=== PATIENT | male | born 1945 | race Caucasian/White ===

== ENCOUNTER 2017-01-29 11:25 | Inpatient (IN) ==
[2017-01-29] MEDS ORDERED: NS 1,000 ML IV ONE (11:52)
[2017-01-29 13:23] LABS: MANUAL DIFF NEEDED? NO
[2017-01-29 13:37] LABS: BASO% 0.4 % (0.0-0.8); EOS# 0.04 X1000 (0.0-0.7); EOS% 0.2 % (0.0-10.0); HEMATOCRIT 35.1 % (42.0-52.0); HEMOGLOBIN 11.9 g/dL (14.0-18.0); IMM GRAN# 0.22 X1000 (0.0-0.04); IMM GRAN% 1.3 % (0.0-0.5); LYMPH# 1.44 X1000 (1.2-3.4); LYMPH% 8.5 % (20.5-51.1); MCH 34.7 PG (27-31); MCHC 33.9 g/dL (33-37); MCV 102.3 FL (81-99); MONO# 0.89 X1000 (0.11-0.59); MONO% 5.3 % (1.7-9.3); MPV 11.6 FL (7.4-10.4); NEUT% 84.3 % (42.2-75.2); PLT 92 X1000 (130-400); RBC 3.43 XMIL (4.7-6.1)
[2017-01-29 14:03] LABS: CALCIUM 8.2 mg/dL (8.8-10.2); POTASSIUM 3.4 mmol/L (3.5-5.1); TOTAL BILIRUBIN 19.98 mg/dL (0.20-1.00); TOTAL PROTEIN 6.1 g/dL (6.3-8.3)
--- NOTE | 2017-01-29 14:19 | PROVIDER DOCUMENTATION ---
This chart was entered by Gretchen Lee Scribe, acting as scribe for Pedro Pablo Philippe MD. HPI-General Adult - General Chief Complaint: Abnormal Lab[s] Stated Complaint: ABNORMAL LABS Time Seen by Provider: 01/29/17 11:35 Source: patient Allergies/Adverse Reactions: Patient Allergies Allergy/AdvReac Type Severity Reaction Status Date / Time No Known Allergies Allergy Verified 03/06/15 13:37 Home Medications: Home Medication List Medication Instructions Recorded Confirmed Last Taken Type LISINOpril [Prinivil] 40 mg PO DAILY 10/14/14 03/06/15 01/14/17 History Metoprolol Succinate [Toprol Xl] 50 mg PO DAILY 10/14/14 03/06/15 01/14/17 History - History of Present Illness -Gen Adult Nature of Presenting Problems: Pt is 71 y/o M presents to the ED with abnormal labs. Pt states was sent by PCP for elevated bilirubin. Pt states bilirubin is 19. Pt states noticed the change in skin color 2 day ago. Location of Pain/Injury: reports: none Pain Radiation: reports: no radiation Quality of Pain: reports: none Severity: reports: mild Onset/Duration: reports: 2 days ago Timing: reports: still present, getting worse Context/Activities at Onset: reports: light activity Modifying Factors: improves with: nothing Associated Symptoms: reports: loss of appetite, nausea, other (generalized abdominal pain and jaundice) Similar Symptoms Previously?: Yes Recently seen or treated by another doctor?: No Review of Systems - Adult - REVIEW OF SYSTEMS - ADULT Constitutional: reports: no symptoms reported Eyes: reports: other (jaundice to sclerae). denies: discharge, blurred vision, double vision, redness Ears, Nose, Mouth & Throat: reports: no symptoms reported Cardiovascular: reports: no symptoms reported Respiratory: reports: no symptoms reported Gastrointestinal: reports: abdominal pain (generalized), nausea. denies: diarrhea, vomiting Genitourinary: reports: no symptoms reported Musculoskeletal: reports: no symptoms reported Integumentary: reports: no symptoms reported Neurological: reports: no symptoms reported Psychiatric: reports: no symptoms reported Endocrine: reports: change in skin pigment (jaundice). denies: increased hunger , increased thirst Hematologic/Lymphatic: reports: no symptoms reported Allergic/Immunologic: reports: no symptoms reported All Other Systems: Reviewed and Negative Past History - Adult - PAST MEDICAL HISTORY-ADULT Review of Records: reports: Nursing Assessment Review, Medications Reviewed, Social history reviewed & non-contributory. Major Childhood Illnesses: reports: denies history Cardiovascular: reports: CAD, HTN, [place] Respiratory: reports: denies history Gastrointestinal: reports: denies history Obstetrical/Gynecological: reports: denies history Genitourinary: reports: denies history Musculoskeletal: reports: denies history Neurological: reports: denies history Psychiatric: reports: denies history Endocrine/Immune: reports: denies history Other Conditions: reports: denies history - PRIOR SURGERIES/PROCEDURES Surgical/Procedure History: reports: cardiac stent - IMMUNIZATION STATUS Childhood Immunizations: See Nurse Assessment Flu Vaccine: See Nurse Assessment - FAMILY HISTORY Family History: reviewed, not pertinent - SOCIAL HISTORY Smoking: quit less than 1 year, cigarettes Substance Use: denies Living Situation: family Physical Exam-General - PHYSICAL EXAM-ADULT Initial Vital Signs Reviewed: Yes - CONSTITUTIONAL General Appearance: appears well, alert, no apparent distress - EYES Eyes: PERRL/EOMI, pink conjunctivae - HEAD, EARS, NOSE, MOUTH & THROAT HENMT: normocephalic/atraumatic, moist mucous membranes, other (jaundice to sclerae) - NECK Neck: non-tender, normal inspection - RESPIRATORY Respiratory: chest non-tender, lungs clear, normal breath sounds - CARDIOVASCULAR Cardiovascular: normal peripheral pulses, regular rate, rhythm - GASTROINTESTINAL (ABDOMEN) Abdominal Exam: normal bowel sounds, soft, tenderness (RUQ and epigastric) - LYMPHATIC Lymphatic: no adenopathy - MUSCULOSKELETAL Back Exam: normal inspection Extremity: normal range of motion, normal inspection - SKIN Integumentary: normal turgor, warm/dry, jaundice - NEUROLOGIC Neurologic: grossly normal - PSYCHIATRIC Psych/Mental Status: normal mood/affect, oriented x 3 Progress - PLAN OF CARE/RESULTS Progress/Plan/Lab Results: Vital Signs - 8 hr 01/29/17 11:28 Temperature 98.7 F Respiratory Rate 20 Blood Pressure 98/61 O2 Sat by Pulse Oximetry 100 Result Diagrams: 01/29/17 12:56 01/29/17 12:56 - CT/MRI 1 CT Study: Abdomen, Pelvis Impression: Abnormal (otherwise stable exam) CT Results: minimal fluid about the inferior right lobe of the liver - CONSULTS/PCP/HOSPITALIST Notification #1 *Consult/PCP/Hospitalist*: Hospitalist Dr CHADWICK Time Discussed: 16:39 Reason/Comments: Dr. Philippe consulted with Hospitalist about PT Consult Disposition: Admit Departure - Departure Date of Disposition Decision: 01/29/17 Time of Disposition Decision: 16:39 DIAGNOSIS: Hepatitis, Hyperbilirubinemia Disposition: ADMITTED INPATIENT 09 Certified Medical Emergency: Emergent Condition: Stable Referrals and Follow-Ups: Nito Denis MD [Primary Care Provider] - - Critical Care Note This patient required my direct & personal management of CC.: No This chart was documented by the indicated scribe, (Gretchen Lee Scribe) and accurately reflects the services I performed and decisions made by me, Pedro Pablo Philippe MD, as attested by the provider's signature.
--- NOTE | 2017-01-29 15:01 | Diag Imaging Result Doc PS360 ---
EXAM: ABDOMEN/PELVIS W/O CONTRAST HISTORY: painless jaundice TECHNIQUE: CT abdomen and pelvis without contrast COMPARISON: 01/14/2017 FINDINGS: Increased markings in the right lung base possibly due to fibrosis. There is severe fatty infiltration of the liver. No calcified gallstones. Normal spleen and adrenal glands. Normal noncontrasted pancreas. No renal stones. No hydronephrosis. Moderate atherosclerosis. No aortic aneurysm. There are several mildly prominent lymph nodes in the ernesto hepatis. No bowel obstruction. The urinary bladder is moderately distended and appears normal. 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 Trace fluid about the right lobe of the liver and paracolic gutter. No abscess. IMPRESSION: Minimal fluid about the inferior right lobe of the liver, otherwise stable exam. Electronically signed by Mau Pitts 01/29/2017 2:58 PM
[2017-01-29 16:15] LABS: URINE SOURCE CLEAN CATCH
[2017-01-29 16:18] LABS: BLOOD URINE SMALL (NEGATIVE); COLOR YELLOW; GLUCOSE URINE NEGATIVE (NEGATIVE); LEUKOCYTES URINE NEGATIVE (NEGATIVE); NITRITE URINE NEGATIVE (NEGATIVE); PROTEIN URINE 30 mg/dL (NEGATIVE); SP GRAVITY URINE 1.021; TURBIDITY URINE HAZY (CLEAR); UROBILINOGEN URINE 8 mg/dL (NORMAL)
[2017-01-29 16:21] LABS: UR EPITHELIAL CELLS <10 /HPF (<10); URINE BACTERIA NEGATIVE /HPF; URINE MICRO REVIEW NEEDED? YES; URINE RBC <10 /HPF (<10); URINE WBC TNTC /HPF (<10)
[2017-01-29 16:38] LABS: URINE CASTS GRANULAR PRESENT
[2017-01-29 16:42] LABS: BILIRUBIN URINE LARGE (NEGATIVE); URINE SMALL ROUND CELLS RENAL PRESENT
[2017-01-29 17:11] LABS: UR CREAT RANDOM 272.8 mg/dL (14-26)
[2017-01-29 18:21] LABS: INR 1.45; PROTIME 15.6 Seconds (9.2-11.7)
--- NOTE | 2017-01-29 19:07 | HISTORY AND PHYSICAL ---
PCP is Dr. Nito Denis. Utility Service Worker is Dr. Erasmo Valenzuela in [place], [place]. CHIEF COMPLAINT: Abnormal labs and weakness. HISTORY OF PRESENT ILLNESS: Mr. Ji is a 71-year-old male with a history of severe coronary disease status post SC and stenting in the past. [facility] [place]. He also has a history of alcohol dependence, around 1 pint a day since 2004. He was actually in the ER about 2 weeks ago for weakness. At that time, he was found to have an elevated bilirubin of 2.79 and had a CAT scan of the abdomen and pelvis which did not show anything acute. There was hepatic steatosis. Since that time, he has been having generalized weakness. He stopped drinking 2 days ago. He denies any abdominal pain, no nausea, vomiting or diarrhea. He does report dark omar colored urine but overall has no acute complaints. No fever, no chills, cough congestion. He had labs drawn for followup and got a phone call today telling him to go to the ER for abnormal labs. In the ER today he was noted to have a T bilirubin of 20 with transaminitis and elevated alkaline phosphatase. He also has acute kidney injury with hyponatremia and hypokalemia. His CBC shows a macrocytic anemia with leukocytosis. In the ER, he had a CT done and showed some minimal fluid in the right inferior lobe of the liver but otherwise nothing acute. On physical exam, the patient is quite jaundiced. He denies any Tylenol use, his last drink was 2 days ago. No recent foreign travel. No uncooked or novel foods. The patient is now going to be admitted for acute hepatitis and painless jaundice. PAST MEDICAL HISTORY: 1. CAD status post SC and stenting. 2. Hypertension. 3. Hyperlipidemia. 4. Alcohol dependence. PAST SURGICAL HISTORY: Coronary stenting, penile implant. SOCIAL HISTORY: Patient quit smoking some time ago. He has been drinking a pint a day since 2004. His last drink was 2 days ago. He denies illicit drug use. He is with 1 child. He has his girlfriend at the bedside. FAMILY HISTORY: Mother from [place], father from [place]. REVIEW OF SYSTEMS: Fourteen-point review of systems obtained and found to be negative with the exception of the HPI. ALLERGIES: None. HOME MEDICATIONS: Metoprolol 50 mg daily, Prinivil 40 mg daily. PHYSICAL EXAMINATION: VITAL SIGNS: Blood pressure is 107/73, heart rate 83, respiratory rate 20, O2 saturation 96% on room air. Temperature is 98.7 degrees. GENERAL: This is an obese, male, lying in hospital bed in no acute distress. Generally he is profoundly jaundiced. HEENT: Head atraumatic and normocephalic. Pupils are equal, round, reactive to light. Sclerae is jaundiced. Oral mucosa is moist. Trachea is midline. CHEST: Clear to auscultation bilaterally. CV: Regular rate and rhythm. S1, S2 is noted. No murmurs. GI: Soft, nondistended, nontender. Bowel sounds are positive. EXTREMITIES: 1+ edema bilaterally. DIAGNOSTIC DATA: Abdomen CT shows some trace amounts of fluid in the right inferior lobe of the liver. Otherwise negative. WBC 16.95, hemoglobin 11.9, hematocrit 35.1, MCV 102.3. Platelet count 92,000. Sodium 132, potassium 3.4, chloride 84, CO2 27, anion gap 21, BUN 27, creatinine 2.7, glucose 101, calcium 8.2. T bilirubin 19.98. AST 42, ALT 121, alkaline phosphatase 600. Protein 6.1, albumin 3.0, amylase is 16. UA shows large bilirubin and TNTC WBC. ASSESSMENT AND PLAN: 1. Painless jaundice: Certainly the concern would be for pancreatic malignancy given the negative CT scan however his CT scan was done without contrast. The patient is going to require a host of labs studies. We are going to check for acute hepatitis, autoimmune hepatitis, will check acetaminophen and salicylate levels, alcohol levels and draw blood cultures. Will check an abdomen ultrasound. We will also consult GI, he will likely need ERCP or MRCP to rule out pancreatic ductal obstruction. We will check a CMP every day. Continue IV fluids. 2. Acute kidney injury: Likely component of hepatorenal on top of DORIS inhibition. We are going to check comprehensive urine studies and renal ultrasound. Consult Nephrology and continue with IV fluids. 3. Leukocytosis: No fever and no nidus of infection at this time. He does have white cells in his urine but he is not febrile. We will check blood cultures and monitor. 4. Multiple electrolyte abnormalities: Patient is hyponatremia, hypokalemic, hypochloremia, and hypocalcemic. We will continue with IV fluids and check urine sodium and osmolarity. Clinically the patient is slightly hypervolemic so the hyponatremia could certainly be secondary to his liver but would not rule out hypovolemic as well. We will tease this out with urine studies. 5. Macrocytic anemia: Iron studies have been ordered. We are going to start a banana bag. 6. Alcohol dependence: Patient denies any withdrawal symptoms but we are going to put him on a banana bag daily and p.r.n. Ativan for withdrawal. 7. DVT prophylaxis will be provided with SCDs and TEDs given his liver issues. Further recommendations to follow. Dictated by LETICIA Potter for Luisito Briggs MD cc: LETICIA Potter MD David Francis, MD Dr. Hunter at [facility]
[2017-01-29 20:04] LABS: HDL 7 mg/dL (35-55); LDL 233 mg/dL; TRIGLYCERIDES 247 mg/dL (39-160); VLDL 49 mg/dL
[2017-01-29 20:18] LABS: FREE T4 1.29 ng/dL (0.93-1.70)
[2017-01-29 20:31] LABS: TOTAL IRON 126 ug/dL (53-167); UNBOUND IRON < 1 ug/dL (112-346)
--- NOTE | 2017-01-29 20:49 | Diag Imaging Result Doc PS360 ---
EXAM: US ABDOMEN-COMPLETE HISTORY: cyn, profound Bilirubinemia TECHNIQUE: FINDINGS: Compared to CT performed earlier. The pancreas is poorly seen. There is fatty infiltration of the liver. No hydronephrosis to the right kidney. No stones within the gallbladder. The common bile duct measures 4 mm. No left-sided hydronephrosis. Spleen measures 13.6 cm. The aorta and inferior vena cava are obscured. IMPRESSION: Fatty infiltration of the liver. Mild splenomegaly. Electronically signed by Mau Pitts 01/29/2017 8:47 PM
[2017-01-29] MEDS: M.V.I.-12 10 ML, FOLIC ACID 1 MG, MAGNESIUM SULFATE 1 GM, THIAMINE 100 MG in NS 1,000 ML IV SCH (22:06)
[2017-01-29] MEDS: PEPCID IV SCH (22:45)
[2017-01-29] MEDS: SODIUM CHLORIDE 0.9% INJ SCH (22:45)
[2017-01-29] MEDS: ATIVAN IV PRN (22:46)
[2017-01-30] MEDS: NS 1,000 ML IV SCH (06:06)
[2017-01-30 07:01] LABS: HEMATOCRIT 32.1 % (42.0-52.0); HEMOGLOBIN 10.7 g/dL (14.0-18.0); MCH 35.4 PG (27-31); MCHC 33.3 g/dL (33-37); MCV 106.3 FL (81-99); MPV 11.2 FL (7.4-10.4); RBC 3.02 XMIL (4.7-6.1)
[2017-01-30 07:19] LABS: ALBUMIN 2.5 g/dL (3.5-5.0); CALCIUM 7.3 mg/dL (8.8-10.2); POTASSIUM 3.3 mmol/L (3.5-5.1)
[2017-01-30 07:29] LABS: TOTAL BILIRUBIN 19.38 mg/dL (0.20-1.00)
[2017-01-30] MEDS: PEPCID IV SCH ×2 (10:19→20:46)
--- NOTE | 2017-01-30 13:57 | PROGRESS NOTE ---
DATE: 01/30/2017 A 71-year-old, abnormal labs and weakness. He is followed by Dr. Nito Mai, ict systems test engineer is Dr. Erasmo Valenzuela, [place]. 71-year-old with history of severe coronary artery disease status post [place], stenting in the past. He is followed a [facility] [place]. Had a history of alcohol dependence about 1 pint a day since 2004. He was actually in the ER about 2 weeks ago for weakness. At this time he is found to have elevated bilirubin 2.79 and a CAT scan of the abdomen and pelvis which did not show anything acute. He had hepatic steatosis. Since that time he has been having generalized weakness. He stopped drinking 2 days ago. Denies any abdominal pain. No nausea, vomiting or diarrhea. He does report dark colored urine but overall no acute complaints. No fever or chills. In the ER CT was done which showed minimal fluid in the right inferior lobe of the liver. INCOMPLETE REPORT -- DICTATION ENDS HERE. cc: Weston Wright MD
--- NOTE | 2017-01-30 14:22 | PROGRESS NOTE ---
DATE: 01/30/2017 SUBJECTIVE: This is a 71-year-old white male with a history of severe coronary artery disease status post myocardial infarction and stenting in the past. He is [facility] at the [facility] [place]. He has a history of alcohol dependence, about 1 pint a day since 2004. Went to the emergency room about 2 weeks ago with weakness and found to have elevated bilirubin at 2.9. Had a CT scan and abdominal and pelvis which did not show anything acute. There was hepatic steatosis. He is having some generalized weakness. He stop drinking about 2 days ago and was admitted with painless jaundice, elevated bilirubin. He had a negative CT, although poor quality. GI has been consulted. History of acute kidney injury and history of leukocytosis, multiple electrolyte abnormalities. Today he feels much better. Sitting up on the side of the bed. He is still getting a liquid diet. OBJECTIVE: Vital signs: Temperature is 98.2 degrees, pulse 80, respirations 18, blood pressure 104/60. Neck: CVP less than 6 cm. Lungs: Clear in all lung walker. Cardiovascular: Regular rhythm and rate without murmur or S3. Abdomen: Soft. Skin: Warm and dry. White count has come down to 11,540, hematocrit 32, platelet count 82,000. Sodium 134, potassium 3.3, chloride 93, BUN 20, creatinine 1.7, which has come down from 2.7. His total bilirubin was 19.9, direct bilirubin was greater than 10. GGT was 3,368. AST was 242 and ALT was 600; they have come down a little bit. ASSESSMENT AND PLAN: 1. Presented with hyperbilirubinemia. Appears to have alcoholic steatosis hepatitis. Dr. Escobar to evaluate. 2. Acute kidney injury. Possible component of hepatorenal and his DORIS inhibitor. 3. Leukocytosis. No sign of bacterial infection at this point. Certainly no sign of peritonitis. 4. Electrolyte abnormalities. Sodium has been supplemented. Potassium has been supplemented. 5. Microcytic anemia. Consistent with alcohol. 6. Alcohol dependence and going through withdrawal. They started him on some supplement, banana bag with thiamine, folate, multivitamin. Seems to be making improvement. cc: Weston Wright MD
--- NOTE | 2017-01-30 18:43 | CONSULTATION ---
DATE OF CONSULTATION: 01/30/2017 HISTORY AND REASON FOR CONSULTATION: Evaluation of this patient with jaundice. HISTORY OF PRESENT ILLNESS: This is a 71-year-old gentleman who was admitted yesterday to this hospital because he has started becoming yellow in color. He said that about 2 weeks ago he started seeing some yellowish discoloration of his skin, so he called his ex- girlfriend and she came in to help him. For a few days, he was jaundiced and he was eating okay with no problem; however, according to him, it cleared and then it came back again and a couple of days ago it became so bad that he even said that he stopped drinking. He was drinking quite heavily, about 1 pint a day of hard liquor since 2004. The patient saw me by the end of May 2016, referred by Dr. Denis because of difficulty in swallowing. At that time, I have found a Nuzhat esophagitis. He did not have any varices. He also had erosive gastritis. Biopsy was negative for Helicobacter pylori infection. The patient's ProTime at that time was 12.1 , INR was 1.14. On 06/15 his bilirubin was 1.58, direct was 0.60. The total protein was 7.3, albumin was 4.5, globulin 2.8. The alkaline phosphatase was 169, SGOT was 116, SGPT was 74. With Diflucan he improved and he came for followup about 2 weeks later. At that time, I explained his problems and told him that he actually needs to stop drinking really big-time. He was on Prevacid 30 mg daily for his gastroesophageal reflux and gastritis. Currently, the patient has been drinking heavily. He said that he stopped for a while. He will not pick it up again and his girlfriend, Taylor, was with him at the time he promised me. PAST MEDICAL HISTORY: In 1998, he had a heart attack. At that time, he stopped smoking completely. He has chronic ischemic heart disease. He had another heart attack in 2004. He also has hypertension. He had a history of jaundice in the past. Perhaps it might have been another episode of alcoholic hepatitis. He has no history of cirrhosis of the liver. He also has hypercholesterolemia. PAST SURGICAL HISTORY: He had 3 stents placed in 1998 and one stent placed in his heart in 2004. He is not taking any Plavix. SOCIAL HISTORY: He is retired. His passed on. He has drank heavily since 2004, that is what he says; however, I believe that he probably was drinking before that, too. According to the report in the office, he drinks 3 or 4 hard drinks per day. FAMILY HISTORY: There is history of hypertension and heart disease in the family. He did not give any history of any GI cancer or any kind of alcoholism in the family. ALLERGIES: He is allergic to Singulair. He was given Singulair for some coughing and he gained about 24 pounds and after stopping it, he has lost all his weight. MEDICATIONS: Aspirin 81 mg daily, lisinopril 40 mg daily, Prevacid 30 mg daily , Toprol-XL 50 mg daily. PHYSICAL EXAMINATION: General: The patient is alert, oriented x3. He does not seem to be any acute distress. Vital Signs: Temperature is 98.2 degrees, pulse rate is 82 per minute, respiratory rate is 18, blood pressure is 104/62. HEENT: He is deeply jaundiced. Skin is otherwise warm and dry. Mucous membranes are moist. Neck supple. There is no thyromegaly. Cardiac: Both heart sounds are heard. Rhythm is regular. No murmur. Lungs: Clear to percussion and auscultation. Abdomen: Soft, protuberant. There is no ascites by examination. I could not feel the edge of the liver or spleen. Extremities: Slight edema of both lower extremities present. DIAGNOSTICS: CT scan showed increased marking in the right lung base due to possibly fibrosis. There is severe fatty infiltration of the liver. No gallston but there is no bowel obstruction. There ises. No hydronephrosis. There are several mildly prominent lymph nodes in the ernesto hepatis no evidence of any pancreatitis. Ultrasound also was done yesterday following the CT scan. It also showed fatty infiltration of the liver. Mild splenomegaly was shown. The common bile duct was 4 mm. Spleen only measured 13.6, not really enlarged. LABORATORY DATA: At the time of entry, his WBC count was elevated at 16.95. The RBC was 3.43, hemoglobin 11.9, hematocrit 35.1, MCV is 102.3, MCH is 34.7. The WBC count came down to 11.54 and MCV went up to 106.38 today. His platelet count is low at 92,000 and it came down to 82 today. The sodium was 132, potassium was 3.4, chloride 84, BUN was 27, creatinine 2.7. His glucose was 101, calcium 8.2. Today the sodium went up to 134, potassium to 3.3, chloride 93, BUN is 20, creatinine 1.7. The calcium is 7.3. Ferritin was 4448, total bilirubin 19.98. GGT 36, AST 242, ALT 121. The alkaline phosphatase 600. Total protein 6.1. Albumin 3. Globulin is 3.1. The triglycerides 247, cholesterol is 289. Today the bilirubin remains high at 19.38. AST dropped to 178, ALT to 93 and alkaline phosphatase 530. The total protein is 5, albumin has dropped to 2.5. ProTime was 15.6, INR was 1.45. Lipase was 28, amylase was 16. IMPRESSION: 1. Acute alcoholic hepatitis with a fatty metamorphosis of the liver. 2. There is no evidence of hepatic encephalopathy 3. He is tremulous already with symptoms of withdrawal. 4. Chronic ischemic heart disease. RECOMMENDATIONS: 1. I had a long discussion with him about his condition of alcoholic hepatitis. The prognosis could go either way. If the patient stops drinking, the prognosis is better ; however, some patients can deteriorate to significant alcoholic hepatitis. I also told him that only treatment possible is stopping drinking. If he does not stop his drinking, his prognosis would be extremely poor. He said that he had definitely stopped drinking. No more drinking anymore. I said that he should keep that promise. 2. There was discussion about ERCP. The patient and his attendant asked me whether an ERCP is needed. 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 He probably had this ongoing problem gradually coming along and at this point it has become quite severe. I cannot say for sure that he has no cirrhosis of the liver. There might be some underlying cirrhosis already. However, there is no dilatation of the common bile duct, there is no ERCP indicated and it could even be harmful if he developed a complication of acute pancreatitis secondary to an ERCP. So ERCP should be avoided. I described this to the patient and his attendant, Taylor, who is his girlfriend. However, the patient is to be observed for either worsening or improvement of alcoholic hepatitis. The trend seems to be improvement because his liver functions are improving. The bilirubin is going to lag behind. The last one usually to improve is the bilirubin because of the intrahepatic cholestasis. If the progress is not satisfactory with poor appetite, then a small dose of steroids might help; however, he is able to eat and I will start him on a gastrointestinal soft diet. He should be observed for 1 more day to see the trend of his liver enzymes and bilirubin to decide about discharging him home. If there is no significant improvement in the liver enzymes, and the bilirubin is going up, then we need to keep him in the hospital because then the prognosis would be poor. If he tolerates the gastrointestinal soft diet and the general condition improves, he could be sent home. I discussed the case with Dr. Wright. I will follow the patient. cc: MD Nito Kerr MD MTDD
--- NOTE | 2017-01-30 18:52 | CONSULTATION ---
DATE OF CONSULTATION: 01/30/2017 REASON FOR ADMISSION: Weakness, abnormal labs, jaundice, acute kidney injury, leukocytosis, hyponatremia, hypokalemia, macrocytic anemia, alcohol dependence. REASON FOR CONSULTATION: Acute kidney injury, assist with medical management. CONSULTING PHYSICIAN: Dr. Wright. HISTORY OF PRESENT ILLNESS: This is a 71-year-old gentleman with a history of alcohol dependence for many years. He has a history of hypertension and a history of coronary artery disease. He was recently in the emergency room secondary to weakness and at that time was found to have a mildly elevated bilirubin at 2.9 and fatty liver noted on CT scan. Since then he has continued to have worsening weakness, jaundice that has been progressive, and urine that has become dark brown in color. He had labs drawn for some follow up from this visit and was told to go to the emergency room. In the emergency room he was found to have a creatinine of 2.7 , WBC of 16.9, sodium 132, potassium 3.4, CO2 27, anion gap is 21, calcium 8.2, bilirubin of 19.9, AST 42, ALT 121, amylase 16, and too numerous to count WBCs. He had an abdominal ultrasound completed that showed fatty infiltration of the liver, no hydronephrosis. He had mild splenomegaly at that time. He is admitted to the hospital for further workup and treatment. He has had IV fluids going over night and this morning his creatinine is down to 1.7. He has had repletion for his electrolyte imbalance and those numbers have improved. His WBC remains at 11.5. On exam today he is still quite jaundiced and actually has some confusion or early withdrawal going on. His significant other is at the bedside and I am able to obtain a history from both of them. He states that over the last couple of weeks he has had worsening fatigue. He denies any nausea or vomiting. He states that his urine output, the color has gotten darker and financial agent and then became brown and has not changed. He states that he had noticed the jaundice over the last several days. PAST MEDICAL HISTORY: As above. PAST SURGICAL HISTORY: He has had a coronary artery stenting. He has had a penile implant. ALLERGIES: None. HOME MEDICATIONS: Are listed as metoprolol, lisinopril, and aspirin. FAMILY HISTORY: CO in father from an abdominal aortic aneurysm. SOCIAL HISTORY: He drinks about a pint a day. His last drink was 2 days prior to admission. He quit smoking some years ago. His significant other is at the bedside. REVIEW OF SYSTEMS: Pertinent positives noted above. PHYSICAL EXAMINATION: Vital Signs: Temperature 98.2 degrees, pulse 82, respiratory rate 18, blood pressure 104/62. Intake 900 mL. Output 100 mL. General: This is an elderly gentleman, chronically ill-appearing, quite jaundiced, sitting up in bed. He is awake and alert. There is some confusion during discussion noted. HEENT: Normocephalic, atraumatic. His conjunctivae are pale. He has icteric sclerae. His oral mucosa is moist. Neck: Supple. Trachea midline. No JVD. Cardiovascular: Regular rate and rhythm. No murmur or gallop appreciated. Pulmonary: He has equal excursion. He is clear bilaterally. Abdomen: Distended, soft. Positive bowel sounds. : Not inspected. He is voiding. Extremities: He has trace to 1+ pretibial edema. No clubbing or cyanosis. Integumentary: He is quite jaundiced. Skin is warm and dry otherwise. Neurologic: Grossly nonfocal aside for some mild confusion. CURRENT LABS: WBC of 11.5, hemoglobin 10.7, sodium 134, potassium 3.3, chloride 93, CO2 28, BUN 20, creatinine 1.7. He has a T bilirubin of 19.3, AST of 178, ALT of 93, alkaline phosphatase of 500. He has an albumin of 2.5. Iron is 126. Saturation and TIBC unreported. His unbound iron saturation is less than 1. His ferritin is greater than 4,000. Urine with 1+ protein, positive bilirubin, too numerous to count white blood cells, granular cast. He has a FENa of 0.19. IMAGING: As above. ASSESSMENT AND PLAN: 1. Acute kidney injury. The patient had a significantly low FENa, indicating prerenal state. This is included with him being on lisinopril. That medication has been held. He has been given IV fluids overnight and he has had modest improvement with his renal function. He has no indication for dialysis at this time. We will continue the current treatment and recheck labs in the morning. 2. Jaundice. ETOH steatitic hepatitis. Followed by primary and GI. The patient has a long history of alcoholism. 3. Electrolytes, improving. 4. Blood pressure. Currently controlled. 5. Fluid volume. He is not overloaded on exam. Dictated by LETICIA Delgado for Ryan Ureña MD cc: Ryan Ureña MD [id number]
[2017-01-30] MEDS: SODIUM CHLORIDE 0.9% INJ SCH (20:46)
[2017-01-30] MEDS: M.V.I.-12 10 ML, FOLIC ACID 1 MG, MAGNESIUM SULFATE 1 GM, THIAMINE 100 MG in NS 1,000 ML IV SCH (20:47)
[2017-01-30] MEDS: ATIVAN IV PRN (20:47)
[2017-01-31] MEDS: ATIVAN IV PRN ×2 (03:02→23:20)
[2017-01-31 04:21] LABS: HEMATOCRIT 31.3 % (42.0-52.0); HEMOGLOBIN 10.6 g/dL (14.0-18.0); MCH 35.1 PG (27-31); MCHC 33.9 g/dL (33-37); MCV 103.6 FL (81-99); MPV 10.8 FL (7.4-10.4); RBC 3.02 XMIL (4.7-6.1)
[2017-01-31] MEDS: NS 1,000 ML IV SCH ×2 (04:39→17:18)
[2017-01-31 06:24] LABS: ALBUMIN 2.4 g/dL (3.5-5.0); CALCIUM 6.7 mg/dL (8.8-10.2); POTASSIUM 2.7 mmol/L (3.5-5.1); TOTAL BILIRUBIN 21.54 mg/dL (0.20-1.00)
[2017-01-31] MEDS: PEPCID IV SCH ×2 (09:30→23:02)
[2017-01-31] MEDS: SODIUM CHLORIDE 0.9% INJ SCH (09:30)
--- NOTE | 2017-01-31 10:49 | PROGRESS NOTE ---
DATE: 01/31/2017 SUBJECTIVE: Patient is sitting up in bed. He is awake and alert. He is in no acute distress. OBJECTIVE: Vital signs: Temperature 97.4 degrees, pulse 114, respiratory rate 23, blood pressure 105/52. Intake 1.4 L. Output, he has been incontinent. He is voiding. General: This is an elderly gentleman sitting up in bed. He is awake, alert, in no acute distress. HEENT: Normocephalic, atraumatic. His conjunctivae are pale. His sclerae are icteric. Oral mucosa moist. Neck: Supple. Trachea midline. No JVD. Cardiovascular: Regular rate and rhythm. No murmur or gallop is appreciated. Pulmonary: He is clear bilaterally with equal excursion and no increased work of breathing. Remains on O2 supplementation via nasal cannula. Abdomen: Distended, but soft with positive bowel sounds and no tenderness. : Not inspected. He is voiding. He is incontinent. Extremities: He has trace pretibial edema. No clubbing or cyanosis. He is moving all extremities. Integumentary: He remains significantly jaundiced. Skin warm and dry otherwise. Neurologic: Grossly nonfocal. LAB DATA: Sodium 133, potassium 2.7, chloride 93, CO2 26, BUN 16, creatinine 1.3 (1.7, 2.7), total bilirubin 21.5, direct bilirubin greater than 10, AST 158, ALT 83, alkaline phosphatase 527, magnesium 1.5, albumin 2.4, and calcium 6.7. ASSESSMENT AND PLAN: 1. Acute kidney injury secondary to intravascular volume depletion. Exacerbated with ACEI use. He has been fluid resuscitated. His ACEI continues to be held. His renal function has improved steadily. He has no indication for any intervention. We will sign off. rg 2. Jaundice, ethanol steatosis hepatitis. Followed by primary and GI. 3. Electrolytes, acid-base balance. These are acceptable. He has MVI bag noted , repletion per the primary. 4. Blood pressure control. 5. Fluid volume. He is not overloaded. Seen, data reviewed, discussed with Polo Hernandez on 01/31/17. I agree with the above assessment and plan of care. rg Dictated by LETICIA Delgado for Ryan Ureña MD cc: Ryan Ureña MD [facility]
[2017-01-31 11:01] LABS: HEPATITIS PROFILE ACUTE SEE COMMENTS
[2017-01-31] MEDS: LACTULOSE PO SCH ×2 (17:18→20:53)
--- NOTE | 2017-01-31 17:45 | PROGRESS NOTE ---
DATE: 01/31/2017 SUBJECTIVE: This patient is a 71-year-old gentleman who is admitted with acute alcoholic hepatitis. His condition remains stable. He was started on a GI soft diet and he said this appetite remains poor and he did not have a bowel movement, although he ate some. He is quite comfortable. Does not complain of any pain. His urine is still high colored. The patient denies any significant GI symptoms. OBJECTIVE: Vital signs: The temperature is 98.2 degrees, pulse rate is high at 124, respiratory rate is 19, blood pressure is 116/73. Skin: He is deeply jaundiced. Skin is warm and dry. HEENT: Mucous membranes are moist. Neck: Supple. There is no thyromegaly. Cardiology: Both heart sounds are heard. Rhythm is regular. No murmur. Lungs: Clear to percussion and auscultation. Abdomen: Soft, protuberant. No masses felt. I could not feel liver or spleen. No ascites. He had a slight pedal edema yesterday but that has gone now. LAB DATA: His sodium is 133, potassium is 2.7 which is quite low, chloride is 93, BUN came down to 16, creatinine 1.3. The calcium is down to 6.7, magnesium is 1.5. The total bilirubin slightly went up to 21.54. The direct is more than 10. SGOT is down to 158. His GPT is down to 83. Alkaline phosphatase is slightly down to 527. Total protein and albumin almost remains the same. IMPRESSION AND PLAN: Acute alcoholic hepatitis. Condition remains stable. We could ambulate the patient with assistance and also start giving him lactulose 30 mL b.i.d. to get bowel movements. Will cut down the dose if needed. I explained the patient's condition to him. Since his appetite did not go down too much and he is tolerating a diet, his prognosis might be better but we have to wait for another couple of days to see the trend of his LFTs, which includes bilirubin. I discussed the case with Dr. Wright. cc: MD Weston Rodriguez MD MTDD
[2017-01-31] MEDS: POTASSIUM CHLORIDE 20 MEQ/SWI 20 MEQ/100 ML IVPB IV SCH ×2 (18:33→20:56)
[2017-01-31] MEDS: M.V.I.-12 10 ML, FOLIC ACID 1 MG, MAGNESIUM SULFATE 1 GM, THIAMINE 100 MG in NS 1,000 ML IV SCH (23:00)
--- NOTE | 2017-02-01 03:19 | PROGRESS NOTE ---
DATE: 01/31/2017 SUBJECTIVE: Mr. Ji says he is feeling a little better. He has got a little more of an appetite, but still has not eaten much. Denies any abdominal pain today, and much less nausea. OBJECTIVE: Vital Signs: His temperature is 98.2 degrees, pulse 105, respirations 18, blood pressure 108/66. HEENT: Pupils are equal, round. Lungs: Clear in all lung walker. Cardiovascular: Regular rhythm and rate, without murmur or S3. Abdomen: Soft. Skin: Warm and dry. Genitourinary: Urine output about 2 L. LABORATORY STUDIES: White count 13,260, hematocrit 31, platelet count 92,000. Chemistry: Sodium 133, potassium 2.7, chloride 93, BUN 16, creatinine 1.3. Calcium 6.7, magnesium 1.5. Total bilirubin still at 21, direct bilirubin greater than 10. Transaminases are coming down. AST 178 to 158, ALT 93, then 83, alkaline phosphatase 535 and 527. ASSESSMENT AND PLAN: 1. Acute kidney injury secondary to intravascular volume depletion, exacerbated by DORIS inhibitor. This renal function continues to improve. Hold his DORIS inhibitor. 2. Jaundice, hepatitis steatosis, alcoholic hepatitis, with elevated bilirubin. Continue supportive care. Transaminases seem to be coming down. 3. Will supplement some potassium. 4. Encourage p.o. intake. cc: Weston Wright MD
[2017-02-01] MEDS: NS 1,000 ML IV SCH ×2 (05:09→11:53)
[2017-02-01 07:32] LABS: HEMATOCRIT 31.6 % (42.0-52.0); HEMOGLOBIN 10.6 g/dL (14.0-18.0); MCH 35.7 PG (27-31); MCHC 33.5 g/dL (33-37); MCV 106.4 FL (81-99); MPV 11.2 FL (7.4-10.4); RBC 2.97 XMIL (4.7-6.1)
[2017-02-01 07:40] LABS: CALCIUM 6.6 mg/dL (8.8-10.2)
[2017-02-01 07:44] LABS: AGAP 15; ALBUMIN 2.5 g/dL (3.5-5.0); ALKALINE PHOSPHATASE 511 U/L (32-122); BUN 10 mg/dL (8-22); CHLORIDE 99 mmol/L (98-107); COSMO 273; GOT 161 U/L (10-34); GPT 81 U/L (10-44); POTASSIUM 3.3 mmol/L (3.5-5.1); SODIUM 137 mmol/L (136-145); TCO2 23 mmol/L (25-35); TOTAL BILIRUBIN 24.12 mg/dL (0.20-1.00); TOTAL PROTEIN 4.8 g/dL (6.3-8.3)
[2017-02-01] MEDS: SODIUM CHLORIDE 0.9% INJ SCH (09:34)
[2017-02-01] MEDS: PEPCID IV SCH ×2 (09:34→20:18)
[2017-02-01] MEDS: LACTULOSE PO SCH (09:34)
[2017-02-01] MEDS ORDERED: MAGNESIUM SULFATE 2 GM/S.W.I. 2 GM/50 ML IVPB IV ONE (10:05)
[2017-02-01] MEDS ORDERED: POTASSIUM CHLORIDE 20% LIQUID PO ONE (10:06)
[2017-02-01] MEDS: POTASSIUM CHLORIDE 20 MEQ/SWI 20 MEQ/100 ML IVPB IV SCH ×2 (11:39→15:44)
[2017-02-01 14:30] LABS: CHLORIDE 96 mmol/L (98-107); POTASSIUM 3.9 mmol/L (3.5-5.1); SODIUM 133 mmol/L (136-145); TCO2 24 mmol/L (25-35)
[2017-02-01 14:31] LABS: AGAP 13; BUN 10 mg/dL (8-22); COSMO 268
--- NOTE | 2017-02-01 15:34 | EKG Report ---
Test Performed on : 02/01/2017 1:53:51 PM Test Reason : CP Blood Pressure : / mmHG Vent. Rate : 094 BPM Atrial Rate : 094 BPM P-R Int : 162 ms QRS Dur : 142 ms QT Int : 424 ms P-R-T Axes : 039 -38 010 degrees QTc Int : 530 ms Sinus rhythm. with premature atrial complexes. Left axis deviation Right bundle branch block Anteroseptal infarct (cited on or before 06-MAR-2015) Abnormal ECG When compared with ECG of 14-JAN-2017 12:20, premature atrial complexes. are now present Confirmed by Ramirze He MD ([id number]) on 02/02/2017 8:34:39 AM
--- NOTE | 2017-02-01 16:49 | Diag Imaging Result Doc PS360 ---
EXAM: MRI ABDOMEN W/WO CONTRAST INDICATION: Patient has elevated CA19-9 to evaluate Pancreas TECHNIQUE: COMPARISON: CT dated 01/29/2017. No prior MRI abdomen is available for comparison. FINDINGS: There is marked hepatic signal dropout on the out of phase images as compared to the in phase images compatible with hepatic steatosis. No discrete hepatic mass is appreciated. The pancreas is grossly unremarkable. No pancreatic mass is identified. There is no biliary dilatation. No common bile duct filling defect or stricture is identified. There are several borderline to mildly prominent epigastric and celiac lymph nodes that can also be seen on the CT. The largest of these lymph nodes measures approximately 1.8 x 1.1 cm axially. Similar to the recent prior CT, there is trace fluid tracking around the lower tip of the liver. There is a tiny left renal cyst. The remainder of the visualized solid viscera of the abdomen are essentially unremarkable. IMPRESSION: 1.Hepatic steatosis. 2.Borderline to mild epigastric and celiac lymphadenopathy. 3.No discrete pancreatic mass is appreciated. 4.Trace fluid at the lower tip of the liver similar to the recent CT. Electronically signed by Sanjay Tilley 02/01/2017 4:47 PM
--- NOTE | 2017-02-01 17:38 | PROGRESS NOTE ---
DATE: 02/01/2017 SUBJECTIVE: He states he is feeling better. He is getting a little bit to eat. His appetite is starting to come back and his strength is improving. He remains afebrile. OBJECTIVE: Vital Signs: Temperature 97.7 degrees, pulse 98, respirations 18, blood pressure 120/69. HEENT: He is still icteric and jaundiced. Lungs: Clear in all lung walker. Cardiovascular: Regular rhythm and rate without murmur or S3. Abdomen: His abdomen is tight, is nontender. Extremities: With trace edema to the lower extremities. DIAGNOSTIC DATA: Reviewed blood work from yesterday, and electrolytes. Noted his calcium is still 6.6, with an albumin of 2.5. He did have a nonsustained run of ventricular tachycardia. Potassium was little low, magnesium marginal, so I will supplement those. ASSESSMENT AND PLAN: 1. Acute kidney injury. Appears to be doing better. Suspect mainly is volume depletion. We had stopped this and held his DORIS inhibitor. 2. Jaundice, hepatitis, steatosis, alcoholic hepatitis, elevated bilirubin. He is eating a little better. That is encouraging. 3. Nonsustained ventricular ectopy, ventricular tachycardia. Supplement potassium and magnesium, obtain an EKG. We have emphasized every day importance of he cannot drink any more alcohol and to try to get a little p.o. intake. cc: Weston Wright MD
[2017-02-01] MEDS: M.V.I.-12 10 ML, FOLIC ACID 1 MG, MAGNESIUM SULFATE 1 GM, THIAMINE 100 MG in NS 1,000 ML IV SCH (20:18)
[2017-02-01] MEDS: ATIVAN IV PRN (20:18)
--- NOTE | 2017-02-02 03:39 | PROGRESS NOTE ---
DATE: 02/01/2017 This patient is admitted with severe jaundice. He most likely has alcoholic hepatitis. He is feeling a little better. His appetite has improved. He still passing a lot of high colored urine and he is deeply jaundiced. PHYSICAL EXAMINATION: General: The patient is alert, oriented x3. Vital Signs: The temperature is 97.7 degrees, pulse rate is 98 per minute, respiratory rate is 18, blood pressure is 120/69. Skin: Shows deep jaundice. HEENT: Mucous membranes are moist. Neck: Supple. There is no thyromegaly. Cardiac: Both heart sounds are heard. Rhythm is regular. No murmur. Lungs: Revealed a few crackles in both bases. Abdomen: Protuberant as before. I could not feel liver or spleen. Bowel sounds are normally heard. There does not seem to be any significant ascites clinically. Extremities: Free of any edema. LAB DATA: WBC count is down to 12.48, hemoglobin 10.6, hematocrit 31.3, MCV is 106.4. The platelet count is 103,000; it is slightly Up. Sodium 133, potassium 3.3, chloride 99, CO2 is 23. BUN is 10, creatinine 1. The calcium is 6.6, magnesium is 1.6. Bilirubin is slightly up at 24.12. AST is 151, ALT is 81, alkaline phosphatase 511. Total protein 4.8. Albumin is 2.5. Alpha-fetoprotein is 4.4. CEA is 2.1. The CA 19-9 is elevated at 459. IMPRESSION: 1. Acute alcoholic hepatitis. Symptomatically slightly better. Bilirubin can lag behind improvement in liver enzymes. 2. CA 19-9 is elevated. RECOMMENDATION: Since CA 19-9 is elevated which can be elevated in the presence of obstructive jaundice although the CT scan of the abdomen and pelvis done on 01/29 did not reveal any tumor of the head of the pancreas we will do an MRCP to look at the pancreatic duct as well as the bile duct. That will be ordered for tomorrow. cc: Dr. Wright
[2017-02-02] MEDS: NS 1,000 ML IV SCH ×2 (06:57→20:24)
[2017-02-02] MEDS: ATIVAN IV PRN ×3 (06:57→20:45)
[2017-02-02 08:53] LABS: BASO% 1.1 % (0.0-0.8); EOS# 0.05 X1000 (0.0-0.7); EOS% 0.4 % (0.0-10.0); HEMATOCRIT 30.7 % (42.0-52.0); HEMOGLOBIN 10.5 g/dL (14.0-18.0); IMM GRAN# 0.51 X1000 (0.0-0.04); IMM GRAN% 4.3 % (0.0-0.5); LYMPH# 1.29 X1000 (1.2-3.4); LYMPH% 10.9 % (20.5-51.1); MANUAL DIFF NEEDED? YES; MCH 35.5 PG (27-31); MCHC 34.2 g/dL (33-37); MCV 103.7 FL (81-99); MONO# 1.29 X1000 (0.11-0.59); MONO% 10.9 % (1.7-9.3); NEUT% 72.4 % (42.2-75.2); PLT 129 X1000 (130-400); RBC 2.96 XMIL (4.7-6.1)
[2017-02-02] MEDS: LACTULOSE PO SCH (09:14)
[2017-02-02] MEDS: PEPCID IV SCH ×2 (09:14→20:26)
[2017-02-02 09:22] LABS: CALCIUM 6.2 mg/dL (8.8-10.2)
[2017-02-02 09:23] LABS: AGAP 15; ALBUMIN 2.4 g/dL (3.5-5.0); ALKALINE PHOSPHATASE 464 U/L (32-122); BUN 7 mg/dL (8-22); CHLORIDE 99 mmol/L (98-107); COSMO 270; GOT 147 U/L (10-34); GPT 77 U/L (10-44); POTASSIUM 3.2 mmol/L (3.5-5.1); SODIUM 136 mmol/L (136-145); TCO2 22 mmol/L (25-35); TOTAL PROTEIN 4.6 g/dL (6.3-8.3)
[2017-02-02 09:24] LABS: TOTAL BILIRUBIN 23.25 mg/dL (0.20-1.00)
[2017-02-02 09:38] LABS: BANDS 4 % (0-1); LYMPHS 16 % (21-51); MONO 6 % (1-9)
[2017-02-02] MEDS ORDERED: MAGNESIUM SULFATE 2 GM/S.W.I. 2 GM/50 ML IVPB IV ONE (16:31)
--- NOTE | 2017-02-02 17:04 | PROGRESS NOTE ---
DATE: 02/02/2017 SUBJECTIVE: This patient is admitted with acute alcoholic hepatitis. His condition is remaining stable. His appetite has not improved, although he is able to eat some. He said that his appetite is remaining the same. He denies any pain. He is still deeply jaundiced. His bowels are moving. PHYSICAL EXAMINATION: The patient is alert and oriented x3. Seems to be slightly drowsy. He is on Ativan for possible withdrawal syndrome. He does not seem to be having any signs of withdrawal syndrome. Slight shake present but no evidence of any hepatic encephalopathy He was sleeping until yesterday; however, last night he could not sleep well because he was moved to a double room. Vital Signs: The pulse is slightly up at 95 per minute, respiratory rate is 17, blood pressure is 114/69. The skin shows deep jaundice. Mucous membranes are moist. Neck is supple. There is no thyromegaly. Cardiac: Both heart sounds are heard. Rhythm is regular. I could not hear any murmur. Lungs reveal a few crackles in the bases. Abdomen: Protuberant. I could not feel any ascites. No masses felt. Bowel sounds are heard. Extremities: No significant edema. LABORATORY DATA: The WBC count is down to 11.85, hemoglobin is 10.5, hematocrit 30.7. The platelet count is 129,000. The MCV is 103.7. The sodium is 136, potassium 3.2 , chloride is 99. CO2 is 22. BUN is 7. Creatinine 0.8. Calcium is 6.2, magnesium is 120. Bilirubin is 23.25. The AST is 147, ALT 77, and alkaline phosphatase 464. Total protein is 4.6, albumin 2.4. IMPRESSION: Acute alcoholic hepatitis. There seems to be very slight improvement. His appetite still remains not so good. Magnetic resonance cholangiopancreatography done yesterday was negative for any pancreatic cancer. Small lymph nodes in the ernesto hepatis probably unremarkable. There is no evidence of strap attic biliary obstruction. He has intrahepatic cholestasis. I calculated his Maddrey DF Score is 41. Since there is no evidence of any infection at this point. He may benefit from steroid therapy for a short period of time. That will at least make him feel symptomatically better. I will, therefore, start him on 15 mg p.o. b.i.d. That would be 30 mg per day dose. Prednisolone is probably superior to prednisone because it does not need to be metabolized by the liver into the active form. We will watch him closely for a few days. cc: MD Weston Rodriguez MD MTDD
[2017-02-02] MEDS: POTASSIUM CHLORIDE 20 MEQ/SWI 20 MEQ/100 ML IVPB IV SCH (18:56)
[2017-02-02] MEDS: ORAPRED LIQUID PO SCH (20:25)
[2017-02-02] MEDS: SODIUM CHLORIDE 0.9% INJ SCH (20:26)
[2017-02-02] MEDS ORDERED: KLOR-CON PO SCH (21:00)
--- NOTE | 2017-02-02 23:13 | PROGRESS NOTE ---
DATE: 02/02/2017 SUBJECTIVE: Mr. Ji feels very weak today. He is trying do a little walking. He is eating a little better. He has had some tachycardia, which appears to be consistent with a sinus tachycardia. Yesterday, he did have some runs of ventricular tachycardia nonsustained. I supplemented his potassium and magnesium. He is afebrile today and has remained afebrile through this hospitalization. OBJECTIVE: Vital signs: Pulse 117, respirations 19, blood pressure 131/72. CVP less than 6 cm. Lungs: Clear in all lung walker. Cardiovascular: Regular rhythm and rate without murmur or S3. : Urine output is over 4 L. LABORATORY: From this morning, white count 11,850, hematocrit 30, platelet count 129,000. Chemistry: Sodium 136, potassium 3.2, chloride 99, bicarb 22, BUN 7, creatinine 0.8. His calcium was 6.2 with an albumin 2.4. Alkaline phosphatase has come down to 464. ALT from 81 to 77, AST from 161 to 147. Total bilirubin is 23. ASSESSMENT/PLAN: Alcohol hepatitis. His liver enzymes slowly seem to be getting better. Encourage p.o. intake. We will supplement potassium and magnesium. cc: Weston Wright MD
[2017-02-03] MEDS: ATIVAN IV PRN ×2 (00:33→22:19)
[2017-02-03] MEDS: POTASSIUM CHLORIDE 20 MEQ/SWI 20 MEQ/100 ML IVPB IV SCH (00:34)
[2017-02-03] MEDS: NS 1,000 ML IV SCH ×2 (02:35→22:19)
[2017-02-03] MEDS: M.V.I.-12 10 ML, FOLIC ACID 1 MG, MAGNESIUM SULFATE 1 GM, THIAMINE 100 MG in NS 1,000 ML IV SCH (03:27)
[2017-02-03 07:05] LABS: AGAP 11; ALBUMIN 2.1 g/dL (3.5-5.0); ALKALINE PHOSPHATASE 429 U/L (32-122); BUN 8 mg/dL (8-22); CHLORIDE 105 mmol/L (98-107); COSMO 273; GOT 142 U/L (10-34); GPT 72 U/L (10-44); POTASSIUM 3.9 mmol/L (3.5-5.1); SODIUM 137 mmol/L (136-145); TCO2 21 mmol/L (25-35); TOTAL PROTEIN 4.3 g/dL (6.3-8.3)
[2017-02-03 07:21] LABS: CALCIUM 6.6 mg/dL (8.8-10.2)
[2017-02-03] MEDS: PEPCID IV SCH ×2 (10:37→20:58)
[2017-02-03] MEDS: ORAPRED LIQUID PO SCH ×2 (10:37→22:00)
[2017-02-03] MEDS: LACTULOSE PO SCH (10:37)
--- NOTE | 2017-02-03 14:49 | PROGRESS NOTE ---
DATE: 02/03/2017 SUBJECTIVE: This patient was admitted with acute alcoholic hepatitis. He was started on prednisolone 15 mg b.i.d. yesterday. His appetite has already picked up. He said that he is starving and he is eating really good. For breakfast he consumed all of his meal. His bowel movements are, according to him, kind of normal with brownish, not so liquid stool. Generally he is feeling better. OBJECTIVE: Vital signs: Temperature is 97 degrees, pulse is 116, respiratory rate is 20, blood pressure is 111/69. Skin: He is still deeply jaundiced. HEENT: Mucous membranes are moist. Lungs: Examination of the lungs reveals that he has a few basal crackles. Abdomen: Protuberant as before with good bowel sounds. I could not see any masses or feel any masses. Extremities: No edema present. LAB DATA: Today's sodium is 137, potassium 3.9, chloride 105, CO2 is 21, BUN 8, creatinine 0.8, glucose is 119. Calcium still remains low at 6.6. The bilirubin is 24.60. The AST is down to 142. ALT is down to 72. Alkaline phosphatase is down to 429. The total protein is down to 4.3. Albumin is 2.1. IMPRESSION: Acute alcoholic hepatitis, symptomatic improvement. RECOMMENDATIONS: I believe his IVs can be stopped and proton pump inhibitor can be given by mouth. He could ambulate in the hallway. I will let Dr. Wrigth those decisions and put the orders. The prednisolone should be continued. His liver functions are improving. Bilirubin will lag behind. cc: MD Nito Kerr MD
--- NOTE | 2017-02-03 17:22 | PROGRESS NOTE ---
DATE: 02/03/2017 SUBJECTIVE: Mr. Ji is a feeling better today. He is still pretty weak but he is improving, you can tell he is improving. He walked the mendez several times today. He is eating a little better. OBJECTIVE: Vital Signs: Temperature 97.0 degrees, pulse 116, respirations 20, blood pressure 111/69, CVP less than 6 cm. Lungs: Clear in all lung walker. Cardiovascular: Regular rhythm and rate without murmur or S3. Abdomen: Soft. Skin: Warm and dry. Genitourinary: Urine output 2400 mL. LAB: Reviewed from the : His chemistries this morning, sodium 137, potassium 3.9, chloride 105, bicarb 21, BUN 8, creatinine 0.8, osmolality 273, calcium 6.6, magnesium 2.0. I think I will check a phosphate level tomorrow. ASSESSMENT AND PLAN: Acute alcoholic hepatitis. Symptomatic improvement, and we stopped the proton pump inhibitor and he is being given it by mouth. Continue to ambulate, continue to encourage p.o. intake. I will check calcium phosphate. We have been supplementing potassium and magnesium. cc: Weston Wright MD
[2017-02-03] MEDS: CALTRATE 600 PO SCH (20:58)
[2017-02-03] MEDS: SODIUM CHLORIDE 0.9% INJ SCH (20:58)
[2017-02-04] MEDS: M.V.I.-12 10 ML, FOLIC ACID 1 MG, MAGNESIUM SULFATE 1 GM, THIAMINE 100 MG in NS 1,000 ML IV SCH (03:02)
[2017-02-04 06:03] LABS: AGAP 12; ALBUMIN 2.2 g/dL (3.5-5.0); ALKALINE PHOSPHATASE 408 U/L (32-122); BUN 10 mg/dL (8-22); CHLORIDE 107 mmol/L (98-107); COSMO 280; GOT 126 U/L (10-34); GPT 72 U/L (10-44); MAGNESIUM 1.8 mg/dL (1.5-2.7); POTASSIUM 3.6 mmol/L (3.5-5.1); SODIUM 140 mmol/L (136-145); TCO2 21 mmol/L (25-35); TOTAL BILIRUBIN 24.35 mg/dL (0.20-1.00); TOTAL PROTEIN 4.2 g/dL (6.3-8.3)
[2017-02-04 06:05] LABS: CALCIUM 6.9 mg/dL (8.8-10.2)
[2017-02-04] MEDS: NS 1,000 ML IV SCH (06:37)
--- NOTE | 2017-02-04 07:19 | Diag Imaging Result Doc PS360 ---
HEAD W/O CONTRAST - 02/04/2017 INDICATION: FALL TECHNIQUE: A CT dose reduction protocol was used. COMPARISON: None FINDINGS: The ventricles and sulci are normal in size and contour. No intracranial mass or hemorrhage. The skull is intact. The sinuses mastoids and middle ears are clear. IMPRESSION: Negative exam. Electronically signed by Rafiq Bryant 02/04/2017 7:16 AM
[2017-02-04] MEDS: PEPCID IV SCH (08:37)
[2017-02-04] MEDS: ORAPRED LIQUID PO SCH ×2 (08:37→23:05)
[2017-02-04] MEDS: CALTRATE 600 PO SCH ×2 (08:37→23:05)
[2017-02-04] MEDS: LACTULOSE PO SCH (08:37)
--- NOTE | 2017-02-04 14:19 | PROGRESS NOTE ---
DATE: 02/04/2017 This patient is admitted with acute alcoholic hepatitis. His condition is gradually improving. Today he said that he feels that he is very sleepy and loopy. He wants to sleep all day. He said that he was given medication which made him sleepy. When I found out what medication was given, he was given 2 mg Ativan IV push at 11 p.m. The indication for that 1 is not clear to me. The patient's appetite is good. He said that he ate well this morning for breakfast. His bowels are moving and there is no significant any other symptoms. PHYSICAL EXAMINATION: General: The patient is alert, oriented x3. Vital Signs: The temperature is 97.7 degrees, pulse rate is 86 per minute, respiratory rate is 18, blood pressure is 108/68. He is deeply jaundiced. Skin: Warm and dry. Mucous membranes are moist. Lung Examination: Reveals some basilar crackles. Cardiac: Negative. Abdomen: Slightly less distended today. Soft. Bowel sounds are heard. Extremities: Free of any edema. LAB DATA: Today's sodium is 140, potassium 3.6, chloride is 107, CO2 is 21, BUN is 10, creatinine is 0.9. The glucose is 120. Calcium is 6.9, phosphorus is low at 1.2. Magnesium is 1.8. The bilirubin is 24.35 which remains the same. The AST is down to 126, ALT is down to 72, alkaline phosphatase is down to 402. Total protein is 4.2, albumin is 2.2. IMPRESSION: Acute alcoholic hepatitis gradually improving. RECOMMENDATION: Continue his prednisolone 15 mg b.i.d. I will reduce the Ativan to 0.5 mg q.4 hours p.r.n. for withdrawal symptoms.
[2017-02-04] MEDS ORDERED: POTASSIUM PHOSPHATE 40 MEQ in NS 250 ML IV ONE (15:00)
--- NOTE | 2017-02-04 15:36 | PROGRESS NOTE ---
DATE: 02/04/2017 SUBJECTIVE: He is feeling better, but he was given some Ativan this morning and said it has kept him messed up for most of the morning. Dr. Escobar had ordered that as needed. He is getting calcium carbonate and getting Pepcid IV q.12 hours. I may stop that and go to p.o. proton pump inhibitor. He is on prednisone 50 mg p.o. b.i.d. OBJECTIVE: General: Today in the bed, he feels comfortable, getting stronger. Vital signs: Temperature 97.4 degrees, pulse 89, respirations 20, blood pressure 133/84. CVP less than 6 cm. Lungs: Clear in all lung walker. Cardiovascular: Regular rhythm and rate without murmur or S3. Abdomen: Soft. Skin: Warm and dry. : Urine output 2000 mL. LABORATORIES: Reviewed. Hematocrit stable at 30. Chemistries from today: Sodium 140, potassium 3.6. Chloride 107. Bicarb 21, BUN 10, creatinine 0.9, calcium was 6.9, phosphorus was 1.2. So I am going to give him some K-Phos. Magnesium was 1.8. Continue p.o. magnesium. Bilirubin is at 24. Transaminases are still declining. Albumin was 2.2. IMAGING: He had a CT of his head this morning. It was a negative examination. I think he had some confusion. ASSESSMENT AND PLAN: We are going to give a p.o. proton pump inhibitor. Stop his IV Pepcid. He was started on some prednisone yesterday. Appetite has picked up. His strength is improving. I am going to supplement some potassium, phosphorus and have noted his hypokalemia. cc: Weston Wright MD
[2017-02-04] MEDS ORDERED: TUMS PO PRN (16:44)
[2017-02-04] MEDS: ATIVAN PO PRN (23:05)
[2017-02-05] MEDS: M.V.I.-12 10 ML, FOLIC ACID 1 MG, MAGNESIUM SULFATE 1 GM, THIAMINE 100 MG in NS 1,000 ML IV SCH (04:44)
[2017-02-05] MEDS: ATIVAN PO PRN ×3 (04:54→22:38)
[2017-02-05] MEDS: NS 1,000 ML IV SCH ×4 (06:44→19:45)
[2017-02-05 06:55] LABS: AGAP 13; ALBUMIN 2.3 g/dL (3.5-5.0); ALKALINE PHOSPHATASE 435 U/L (32-122); BUN 13 mg/dL (8-22); CALCIUM 7.4 mg/dL (8.8-10.2); CHLORIDE 110 mmol/L (98-107); COSMO 288; GOT 132 U/L (10-34); GPT 83 U/L (10-44); POTASSIUM 3.5 mmol/L (3.5-5.1); SODIUM 144 mmol/L (136-145); TCO2 21 mmol/L (25-35); TOTAL BILIRUBIN 26.25 mg/dL (0.20-1.00); TOTAL PROTEIN 4.4 g/dL (6.3-8.3)
[2017-02-05] MEDS: ORAPRED LIQUID PO SCH ×2 (08:17→22:35)
[2017-02-05] MEDS: NEXIUM PO SCH (08:17)
[2017-02-05] MEDS: LACTULOSE PO SCH (08:17)
[2017-02-05] MEDS: CALTRATE 600 PO SCH ×2 (08:17→22:35)
[2017-02-05] MEDS ORDERED: ALBUMIN 25% IV ONE (11:42)
--- NOTE | 2017-02-05 13:57 | PROGRESS NOTE ---
DATE: 02/05/2017 SUBJECTIVE: Mr. Ji had a better day. He states that his stools are loose, having frequent bowel movements. He is eating a little better. He ate a little better yesterday. Today, he did not eat much breakfast. His son was at the bedside. OBJECTIVE: Temperature 97.9 degrees, pulse 100, respirations 19, blood pressure 142/94. Lungs are clear in all lung walker. Cardiovascular: Regular rhythm and rate without murmur or S3. Abdomen soft. Skin is warm and dry. Sodium 144, potassium 3.5, chloride 110. BUN 13, creatinine .9. Calcium has come up to 7.4, bilirubin is still 26. AST 132, ALT 83, alkaline phos 435. Albumin 2.3. Magnesium was 1.8. ASSESSMENT AND PLAN: 1. Alcoholic hepatitis. Protein calorie malnutrition. Enzymes are slowly improving. Bilirubin will be the last improved. Encouraged p.o. intake. We did start him on steroids. 2. Alcohol withdrawal. I think he is through the withdrawal effects, so there is an element of or depression. 3. His stools are loose. So, I will see if I can back down on anything that would contribute to that. He is on prednisone 50 mg b.i.d. We will stop his lactulose. Getting calcium carbonate. He still gets his multivitamin every day. cc: Weston Wright MD
--- NOTE | 2017-02-05 14:13 | PROGRESS NOTE ---
DATE: 02/05/2017 SUBJECTIVE: This patient was admitted with acute alcohol hepatitis. His condition is improving, but today I noticed that he has little more ankle swelling than before. He still seems to be drowsy. His Ativan is cut down to 1 mg q.4 hour p.r.n. EXAMINATION: Vital Signs: The temperature is 97.9 degrees, pulse is 100 per minute, respiratory rate is 18, blood pressure is 140/94. General: He is deeply jaundiced. Skin: Is warm and dry. HEENT: Mucous membranes are moist. Neck: Supple. Cardiovascular: Both heart sounds are heard. Rhythm is regular. I could not hear any murmur. Lungs: Shows more crackles in both bases. Abdomen: Protuberant. There is some anterior abdominal wall edema present, no masses felt. Not more distended than yesterday. Extremities: 2+ edema today. LABORATORY DATA: Sodium 144, potassium 3.5, chloride is 110, CO2 is 21, BUN is 13, creatinine is 0.9, glucose is 115. Calcium is 7.4. Bilirubin is 26.25. AST is 132, slightly up from yesterday. ALT is 183, slightly up from yesterday. Alkaline phosphatase is also slightly up at 435. The albumin is 2.3. IMPRESSION: 1. Severe hypoalbuminemia causing anasarca. 2. Acute alcoholic hepatitis, improving. RECOMMENDATION: 1. Cut down on IV fluids. Dr. Wright has already done that. 2. I will giving him salt-free albumin 25 g IV piggyback daily for 3 days. We will do ProTime for tomorrow morning along with blood test. cc: MD Weston Rodriguez MD MTDD
[2017-02-05] MEDS: ALBUMIN 25% IV SCH (15:07)
[2017-02-06] MEDS: M.V.I.-12 10 ML, FOLIC ACID 1 MG, MAGNESIUM SULFATE 1 GM, THIAMINE 100 MG in NS 1,000 ML IV SCH (03:38)
[2017-02-06] MEDS: ATIVAN PO PRN ×4 (03:48→22:07)
[2017-02-06 06:45] LABS: INR 1.32; PROTIME 14.1 Seconds (9.2-11.7)
[2017-02-06 06:50] LABS: HEMATOCRIT 31.9 % (42.0-52.0); HEMOGLOBIN 10.8 g/dL (14.0-18.0); MCHC 33.9 g/dL (33-37); MCV 106.3 FL (81-99); MPV 11.1 FL (7.4-10.4)
[2017-02-06] MEDS: ALBUMIN 25% IV SCH (08:43)
[2017-02-06] MEDS: NEXIUM PO SCH (08:43)
[2017-02-06] MEDS: CALTRATE 600 PO SCH ×2 (08:43→22:07)
[2017-02-06] MEDS: ORAPRED LIQUID PO SCH ×2 (08:43→22:07)
[2017-02-06] MEDS: KLOR-CON PO SCH (10:20)
[2017-02-06] MEDS: LASIX PO SCH (10:20)
[2017-02-06 11:16] LABS: AGAP 14; ALBUMIN 2.7 g/dL (3.5-5.0); ALKALINE PHOSPHATASE 391 U/L (32-122); BUN 13 mg/dL (8-22); CALCIUM 7.1 mg/dL (8.8-10.2); CHLORIDE 108 mmol/L (98-107); COSMO 285; GOT 134 U/L (10-34); GPT 91 U/L (10-44); POTASSIUM 3.6 mmol/L (3.5-5.1); SODIUM 143 mmol/L (136-145); TCO2 21 mmol/L (25-35)
[2017-02-06 11:31] LABS: DIRECT BILIRUBIN > 10.00 mg/dL (0.00-0.20)
--- NOTE | 2017-02-06 11:54 | PROGRESS NOTE ---
DATE: 02/06/2017 SUBJECTIVE: Mr. Ji is feeling better this morning. A little stronger. Eating a little better. OBJECTIVE: Vital signs: Temp 97.4 degrees, pulse 77, respirations 17, blood pressure 121/72. Lungs: Clear in all lung walker. Cardiovascular: Regular rhythm and rate without murmur or S3. Abdomen: Soft. Skin: Warm and dry. Intake and output: Urine output 1800 mL. LAB: White count 14,740, hematocrit 31, platelet count 161,000. Sodium 144, potassium 3.5, chloride 110, BUN 13, creatinine 0.9, calcium is 7.4. Will recheck his phosphorus I think tomorrow. Bilirubin stable at 26, AST 132, ALT 83, alkaline phosphatase 435. ASSESSMENT AND PLAN: 1. Severe hypobilirubinemia causing anasarca. We have cut down his fluids and I think Dr. Escobar is going to give him albumin 50 g IV piggyback daily for 3 days. 2. Acute alcoholic hepatitis, slowly improving. Encourage p.o. intake. Encourage physical therapy. Have supplemented his calcium, potassium, magnesium. Will continue to follow his electrolytes. cc: Weston Wright MD
[2017-02-06] MEDS: NS 1,000 ML IV SCH (13:51)
[2017-02-07] MEDS: ATIVAN PO PRN ×2 (03:28→15:03)
[2017-02-07] MEDS: M.V.I.-12 10 ML, FOLIC ACID 1 MG, MAGNESIUM SULFATE 1 GM, THIAMINE 100 MG in NS 1,000 ML IV SCH (03:28)
--- NOTE | 2017-02-07 03:55 | PROGRESS NOTE ---
DATE: 02/06/2017 SUBJECTIVE: This patient is admitted with acute alcoholic hepatitis. Today, he has slight improvement. He seems to be feeling more hungry and eating his breakfast. He is on prednisolone 15 mg b.i.d. The patient says that he is quite sleepy but he is not requiring too much the sedation at this point. He is not in acute distress. PHYSICAL EXAMINATION: Vital Signs: The temperature is 97.4 degrees, pulse rate is 77 per minute, respiratory rate is 17, blood pressure is 121/72. HEENT: He is deeply jaundiced as before. Skin is warm and dry. Mucous membranes are moist. Cardiac: Both heart sounds are heard. Rhythm is regular. I could not hear any murmur. Lungs: Reveal bibasilar crackles. Abdomen: Less tense. Some anterior abdominal wall edema present. Bowel sounds are heard. No masses felt. Extremities: Show still 1+ pitting edema. Is and Os: His total intake was 1943 mL. The total output was 650. Still, he is positive 1293 mL. He had 1 bowel movement today. LAB DATA: WBC count is 14.74, hemoglobin is 10.8, hematocrit 31.9, MCV is 106.3, the platelet count went up to 161,000. His prothrombin time dropped from 15.6-14.1, INR is 1.32. Other labs are not back. IMPRESSION: 1. Acute alcoholic hepatitis with improvement in prothrombin time and platelet count. 2. Still a lot of fluid in his body. RECOMMENDATION: I will start him on small dose of Lasix 40 mg p.o. and also give him 20 mEq of potassium daily. We will watch his electrolytes and LFTs for the next few days. I encouraged him to ambulate in the hallway. On the whole, there is improvement in his condition. Hopefully, in the next few days, he will improve and he could be sent home. cc: Weston Wright MD
[2017-02-07 07:19] LABS: AGAP 14; ALBUMIN 2.8 g/dL (3.5-5.0); ALKALINE PHOSPHATASE 392 U/L (32-122); BUN 12 mg/dL (8-22); CALCIUM 7.2 mg/dL (8.8-10.2); CHLORIDE 103 mmol/L (98-107); COSMO 281; GOT 137 U/L (10-34); GPT 96 U/L (10-44); POTASSIUM 3.1 mmol/L (3.5-5.1); SODIUM 141 mmol/L (136-145); TCO2 24 mmol/L (25-35)
[2017-02-07 07:27] LABS: DIRECT BILIRUBIN > 10.00 mg/dL (0.00-0.20); TOTAL BILIRUBIN 29.03 mg/dL (0.20-1.00)
[2017-02-07 08:05] VITALS: BP 129/72
[2017-02-07] MEDS: ALBUMIN 25% IV SCH (09:39)
[2017-02-07] MEDS: KLOR-CON PO SCH (11:20)
[2017-02-07] MEDS: NEXIUM PO SCH (11:20)
[2017-02-07] MEDS: LASIX PO SCH (11:21)
[2017-02-07] MEDS: ORAPRED LIQUID PO SCH (11:21)
[2017-02-07] MEDS: CALTRATE 600 PO SCH (11:21)
--- NOTE | 2017-02-07 14:40 | DISCHARGE SUMMARY ---
ADMISSION DATE: 01/29/2017 DISCHARGE DATE: 02/07/2017 PRIMARY CARE PHYSICIAN: Nito Denis MD. METAL WIRE COATING OPERATOR: Dr. Erasmo Valenzuela in [place]. HISTORY OF PRESENT ILLNESS/HOSPITAL COURSE: Presented with abnormal labs and weakness. This is a 71-year-old white male with a history of severe coronary artery disease status post myocardial infarction and stenting in the past, [facility] [place]. He has a history of alcohol dependence, around 1 pint a day since 2004. Was actually in the ER about 2 weeks ago before this admission with weakness. At that time they found him to have elevated bilirubin at 2.79. CAT scan of abdomen and pelvis did not show anything acute. There was hepatic steatosis. Since that time he has been having generalized weakness. He stopped drinking 2 days prior to admission. He denies any abdominal pain. No nausea, vomiting, or diarrhea. He does report some omar colored urine but overall no acute complaints. No fever or chills. No cough or congestion. Got a follow up phone call from the ER. The ER told him that his total bilirubin was 20, he had transaminitis and elevated alkaline phosphatase. He was brought here. CBC showed some leukocytosis. CT scan showed some minimal fluid in the right inferior lobe of the liver but otherwise nothing acute. So was admitted for alcohol hepatitis, alcohol withdrawal, and impressive elevated bilirubin. Dr. Escobar followed along with him. Dr. Escobar had seen him in the clinic and this was the intrahepatic biliary insufficiency. He did not feel he needed an ERCP or further diagnostic tests. He had acute kidney injury which was likely a component of hepatorenal on top of DORIS inhibitor. We stopped the DORIS inhibitor. He had some leukocytosis which was nonspecific. Found no sign of bacterial infection. Continued supportive measures, replaced his potassium and magnesium and phosphate and calcium. He had macrocytic anemia consistent with his alcoholic hepatitis and long history of alcoholism. We gave him thiamine and folate and B12 and he showed slow but steady improvement with improvement in his labs. Bilirubin still hovered between 24 and 29, transaminases seemed to be slowly declining. He did eat better, p.o. intake improved. His albumin was 2.8. Calcium of 7.20. We will continue to supplement his potassium. His magnesium was up to 1.8. Will get follow with home health. Follow up with Dr. Denis. Follow up with Dr. Escobar. Will discharge him home. DISCHARGE MEDICATIONS: He will take calcium carbonate 600 mg b.i.d., Nexium 40 mg a day, Lasix 40 mg a day, multivitamin, Klor-Con 20 mEq daily, prednisone 50 mg p.o. b.i.d. to taper per Dr. Escobar. cc: Weston Wright MD
[2017-02-07] MEDS ORDERED: KLOR-CON PO SCH (21:00)
--- NOTE | 2017-02-08 08:59 | PROGRESS NOTE ---
DATE: 02/07/2017 This patient is admitted with acute alcoholic hepatitis. Yesterday he was having a lot of swelling which accumulated over time in his body. He had swelling of the lower extremities and also bibasilar carpals and the anterior abdominal edema. He was given Lasix 40 mg and that this certain in a lot of diuresis. The patient said that he has had to go to the bathroom quite a few times yesterday but on the report, the output was 975 mL of with a total output of 700 mL. But then said that it may not be as great. He had 1 bowel movement today which was soft. The patient is generally comfortable except for frequency of urination but he does not have any pain. The urine is high colored. The appetite is remaining the same. He is not short of breath. PHYSICAL EXAMINATION: Vital Signs: The temperature is 97.8 degrees, pulse rate is 92 blood pressure is 129/72, respiratory rate is 20. He is deeply jaundiced. Skin: Warm and dry. Mucous membranes are moist. Neck: Supple. Cardiac: Both heart sounds are heard. Rhythm is regular. I could not hear any murmur. Lungs: Reveal bibasilar crackles. Abdomen: Protuberant, no masses felt. Bowel sounds are heard. There is slight anterior abdominal wall edema. Extremities: The pitting edema of the lower extremity is remaining the same as before, but perhaps the size is a little less. LAB DATA: Today's sodium is 141, potassium 3.1, chloride 103, CO2 is 24, BUN is 12, creatinine is 0.9. The calcium is 7.2, bilirubin is 29.3 which is up from yesterday. Direct is smaller than 10, AST is 137, ALT is 96, the alkaline phosphatase 392 remaining almost the same. The ALT and AST is slightly up from before. The albumin is 2.8. IMPRESSION: Acute alcoholic hepatitis with severe hypoalbuminemia and anasarca. RECOMMENDATIONS: We will continue the current therapy. He will need more potassium by the mouth. His brother was in attendance. His name is Prabhakar Ji. His older brother is Mr. Prabhakar Ji. I discussed the patient's condition with his older brother and the patient and explained about the guarded prognosis. His body has to improve by itself, and only treatment we are giving is supportive care. There is hope for recovery. Once he has recovered, he should not be drinking at all anymore.
== END 2017-02-07 16:08 | disposition home health service (06) ==
LOC: ED 11:25 → 3N 17:49 → SUATTDRO 17:49 → 3N 18:44
PROVIDERS: ATTEND Emergency Medicine

== ENCOUNTER 2017-02-15 16:33 | Inpatient (IN) ==
[2017-02-15 17:28] LABS: BASO% 0.3 % (0.0-0.8); EOS# 0.04 X1000 (0.0-0.7); EOS% 0.2 % (0.0-10.0); HEMATOCRIT 41.2 % (42.0-52.0); HEMOGLOBIN 14.5 g/dL (14.0-18.0); IMM GRAN% 2.5 % (0.0-0.5); LYMPH# 0.86 X1000 (1.2-3.4); LYMPH% 3.6 % (20.5-51.1); MANUAL DIFF NEEDED? NO; MCH 36.3 PG (27-31); MCHC 35.2 g/dL (33-37); MONO# 0.68 X1000 (0.11-0.59); MONO% 2.8 % (1.7-9.3); MPV 12.6 FL (7.4-10.4); NEUT% 90.6 % (42.2-75.2); PLT 162 X1000 (130-400)
[2017-02-15 17:30] LABS: INR 1.48; PROTIME 15.9 Seconds (9.2-11.7)
--- NOTE | 2017-02-15 17:45 | PROVIDER DOCUMENTATION ---
This chart was entered by Jerel Blanco Scribe, acting as scribe for Chidi Padron MD. HPI-Abdominal Pain/GI Problem - General Chief Complaint: Abnormal Lab[s] Stated Complaint: ABNORMAL LABS Time Seen by Provider: 02/15/17 16:43 Source: patient, family Allergies/Adverse Reactions: Patient Allergies Allergy/AdvReac Type Severity Reaction Status Date / Time montelukast [From Singulair] Allergy SWELLING Verified 01/30/17 08:42 Home Medications: Home Medication List Medication Instructions Recorded Confirmed Last Taken Type Ibuprofen 200 mg PO ORDERED 02/15/17 02/15/17 02/15/17 History Melatonin 1 tab PO HS 02/15/17 02/15/17 02/14/17 History Multivitamin/Iron/Folic Acid 1 tab PO DAILY 02/15/17 02/15/17 02/15/17 History [Centrum Adults Tablet] Ondansetron [Zofran] 4 mg PO Q4H PRN PRN 02/15/17 02/15/17 02/15/17 History - History of Present Illness-ABD Nature of Presenting Problems: Patient is a 71 y/o M that presents to the ER with abdominal swelling, jaundice , and leg swelling x 1.5 weeks. patient was admitted recently for same and dx with alcoholic cirrhosis. patient was at f/u outpatient with GI and sent here due to Total Roman being in the 40s, on d/c it was in the 20s. Patient denies abdominal pain or SOB. patient does have loss of appetite Abdominal Pain Onset Location: reports: generalized abdomen Quality of Pain: reports: fullness Severity in ED: reports: severe Onset/Duration: reports: gradual, other (1.5 weeks) Timing: reports: still present, getting worse Activities at Onset: reports: none Modifying Factors: improves with: nothing Associated Symptoms: reports: fatigue, loss of appetite, malaise. denies: back/ neck pain, chest pain, diarrhea, dizziness, EENT symptoms, nausea, shortness of breath, vomiting, weakness Similar Symptoms Previously?: Yes Recently seen or treated by another doctor?: Yes Review of Systems - Adult - REVIEW OF SYSTEMS - ADULT Constitutional: denies: chills, fever Eyes: reports: no symptoms reported Ears, Nose, Mouth & Throat: reports: no symptoms reported Cardiovascular: reports: edema. denies: chest pain, orthopnea, palpitations, syncope Respiratory: reports: no symptoms reported Gastrointestinal: reports: poor appetite. denies: abdominal pain, diarrhea, nausea, vomiting Genitourinary: reports: no symptoms reported Musculoskeletal: denies: back pain, joint pain, neck pain Integumentary: reports: no symptoms reported Neurological: reports: no symptoms reported Psychiatric: reports: no symptoms reported Endocrine: reports: no symptoms reported Hematologic/Lymphatic: reports: no symptoms reported Allergic/Immunologic: reports: no symptoms reported All Other Systems: Reviewed and Negative Past History - Adult - PAST MEDICAL HISTORY-ADULT Review of Records: reports: Old Records Reviewed, Nursing Assessment Review, Medications Reviewed Cardiovascular: reports: CAD, HTN, NC Gastrointestinal: reports: liver disease (alcoholic cirrhosis) - PRIOR SURGERIES/PROCEDURES Surgical/Procedure History: reports: cardiac stent - IMMUNIZATION STATUS Childhood Immunizations: See Nurse Assessment Flu Vaccine: See Nurse Assessment - FAMILY HISTORY Family History: reviewed, not pertinent - SOCIAL HISTORY Substance Use: none presently/history of abuse Living Situation: family Physical Exam-General - PHYSICAL EXAM-ADULT Initial Vital Signs Reviewed: Yes - CONSTITUTIONAL General Appearance: alert, moderate distress, severe distress - EYES Eyes: PERRL/EOMI, scleral icterus - HEAD, EARS, NOSE, MOUTH & THROAT HENMT: normocephalic/atraumatic, moist mucous membranes, normal ENT inspection - NECK Neck: full range of motion, normal inspection - RESPIRATORY Respiratory: lungs clear, normal breath sounds, no respiratory distress, no accessory muscle use - CARDIOVASCULAR Cardiovascular: regular rate, rhythm, no murmur - GASTROINTESTINAL (ABDOMEN) Abdominal Exam: non tender, distended, hepatomegaly - MUSCULOSKELETAL Extremity: normal range of motion, pedal edema - SKIN Integumentary: jaundice. negative: cyanosis - NEUROLOGIC Neurologic: grossly normal, no motor/sensory deficits - PSYCHIATRIC Psych/Mental Status: normal mood/affect, normal thought content, normal thought process, oriented x 3 Progress - PLAN OF CARE/RESULTS Progress/Plan/Lab Results: Vital Signs - 8 hr 02/15/17 16:36 02/15/17 17:00 Temperature 96.9 F L Pulse Rate 82 77 Respiratory Rate 18 15 Blood Pressure 118/69 116/77 O2 Sat by Pulse Oximetry 99 96 Orders Category Date Time Status IV Insertion ORDERED Care 02/15/17 16:44 Active CHEST-PORTABLE [RAD] Stat Exams 02/15/17 16:46 Ordered AMYLASE [CHEM] Stat Lab 02/15/17 17:14 Received CBC WITH DIFF [HEME] Stat Lab 02/15/17 17:14 Results CK PROFILE [SP CHEM] Stat Lab 02/15/17 17:14 Received COMPREHENSIVE METABOLIC PANEL [CHEM] Stat Lab 02/15/17 17:14 Received LACTATE, PLASMA [CHEM] Stat Lab 02/15/17 17:14 Received PRO B-NATRIURETIC PEPTIDE Stat Lab 02/15/17 17:14 Received PROTIME WITH INR [COAG] Stat Lab 02/15/17 17:[address] [COAG] Stat Lab 02/15/17 17:14 Received TROPONIN T Stat Lab 02/15/17 17:14 Received Result Diagrams: 02/15/17 17:14 Departure - Departure Date of Disposition Decision: 02/15/17 Time of Disposition Decision: 17:42 DIAGNOSIS: Steatosis of liver, Liver cirrhosis Disposition: ADMITTED INPATIENT 09 Certified Medical Emergency: Emergent Condition: Critical Referrals and Follow-Ups: Nito Denis MD [Primary Care Provider] - - Critical Care Note This patient required my direct & personal management of CC.: No Attestation - Physician/ ELENA Attestation The physician spent face to face time with patient:: Yes Advanced Practice Provider documentation review:: The physician spent face to face time with this patient and agrees with all MLP documentation, treatment, and medical decision making by the MLP. See provider notes for further information. This chart was documented by the indicated scribe, (Jerel Blanco, Scribe) and accurately reflects the services I performed and decisions made by , Chidi Padron MD, as attested by the provider's signature.
[2017-02-15 17:54] LABS: ALBUMIN 2.9 g/dL (3.5-5.0); CALCIUM 8.2 mg/dL (8.8-10.2); POTASSIUM 3.3 mmol/L (3.5-5.1); TOTAL BILIRUBIN 44.26 mg/dL (0.20-1.00); TOTAL PROTEIN 5.1 g/dL (6.3-8.3)
[2017-02-15 17:58] LABS: PTT 29.4 Seconds (22.0-36.0)
[2017-02-15] MEDS ORDERED: CLAFORAN 2 GM in NS 100 ML IV ONE (18:30)
[2017-02-15] MEDS ORDERED: ROCEPHIN 1 GM/NS 1 GM/50 ML IVPB IV ONE (18:39)
--- NOTE | 2017-02-15 19:11 | Diag Imaging Result Doc PS360 ---
EXAM: CHEST-PORTABLE HISTORY: abnormal labs TECHNIQUE: Portable upright AP COMPARISON: 01/14/2017 FINDINGS: The lungs are well expanded except for small amount of atelectasis in the right base. Heart is not enlarged. The vessels are not distended. No consolidation. No pleural effusions identified. IMPRESSION: Right basilar atelectasis. Electronically signed by Mau Pitts 02/15/2017 7:09 PM
--- NOTE | 2017-02-15 19:19 | HISTORY AND PHYSICAL ---
HISTORY OF PRESENT ILLNESS: This is a 71-year-old who was admitted with abnormal labs and weakness. He has a history of severe coronary artery disease status post myocardial infarction and stenting in the past. [facility] has [facility] in [place]. He has a history of alcohol dependence about a pint a day. He drinks about a pint a day. He has drank this since 2004. He quit on last admission on 01/29/2017 and he had been in the ER several times with elevated bilirubin. CT of the abdomen and pelvis did not show anything acute. There is hepatic steatosis. He has been having generalized weakness. He stopped drinking back on 01/27/2017. He came to the hospital and he showed some improvement in his transaminases. His bilirubin remained fairly stable. We made some improvement as far as his eating p.o. nutrition. Dr. Escobar is his GI doctor. Apparently today he felt like the last couple of weeks he has had increased swelling, increased edema in his feet, and presented to Dr. Escobar's office. His bilirubin is elevated. Albumin it had, ProTime elevated, and they were concerned and so he was told to come to the emergency room, so we will admit. I think the plan was to do a paracentesis and possibly an EGD. PAST MEDICAL HISTORY: 1. Coronary artery disease status post [place] and stenting. 2. Hypertension. 3. Hyperlipidemia. 4. Alcohol dependence. PAST SURGICAL HISTORY: Coronary stenting. He has had a penile implant. SOCIAL HISTORY: Patient quit smoking some time ago. Last month he used to drink steadily for over 11 years a pint a day. Denies any drug use. FAMILY HISTORY: Mother from myocardial infarction, father from abdominal aortic aneurysm. ALLERGIES: None. REVIEW OF SYSTEMS: No weight gain or loss. No fever or chills.HEENT: Unremarkable. Respiratory: No increased work of breathing or dyspnea. Cardiovascular: No chest pain or tachy palpitation. GI: Unremarkable. : Unremarkable. Musculoskeletal: No significant complaints. Neurologic: No significant complaints. Endocrinologic/Hematologic: No significant history. He states that he does have early satiety. He is not eating as well. He is having a little trouble with constipation. He notices his abdomen is more swollen and his extremities more swollen. PHYSICAL EXAMINATION: VITAL SIGNS: Temperature 96.9 degrees, pulse 70, respirations 12, blood pressure 112/66. HEENT: Pupils are equal and round. LUNGS: Clear in all lung walker. CARDIOVASCULAR: Regular rhythm and rate without murmur or S3. ABDOMEN: The abdomen is distended, but is soft and nontender. SKIN: He has obvious jaundiced skin, icteric conjunctivae. PHYSICAL EXAMINATION: GENERAL: Awake and alert, oriented x3. VITAL SIGNS: Temperature 96.9 degrees, pulse 70, respirations 12, blood pressure 112/66. HEENT: Pupils are equal, round. LUNGS: Clear in all lung walker. CARDIOVASCULAR: Regular rhythm and rate without murmur or S3. ABDOMEN: Distended. It is soft and nontender. LABORATORY DATA: White count 50603, hematocrit 41, platelet count 162,000. Sodium 133, potassium 3.3, chloride 92, bicarb 22, BUN 53, creatinine 2.6, calcium 8.2. ProBNP was 1358. Amylase is 33, albumin 2.9. ProTime 15.9 with an INR of 1.48. PTT was 29. ASSESSMENT/PLAN: 1. Alcoholic hepatitis with significant liver dysfunction and elevation of bilirubin. Transaminases, I think, have actually improved some. His alkaline phosphatase is still elevated. We may need to pursue looking again to see if there is any biliary duct obstruction. I think they want to pursue a paracentesis. I do not see any tenderness or evidence of peritonitis. I think we are still left with supportive measures. 2. Complains of a little constipation. 3. Increased edema in the lower extremities and the abdomen, so I think we will probably need to put him on some spironolactone and may try some Lasix again. 4. His creatinine is 2.6. I am not sure if this represents some hepatorenal dysfunction. I suspect it does. 5. Protein calorie malnutrition. He is apparently having early satiety. I not know if we need to look at his stomach or if we need to consider parenteral or NG nutrition. We will discuss with GI. cc: Weston Wright MD
[2017-02-15] MEDS ORDERED: IBUPROFEN 200 MG PO SCH (19:49)
[2017-02-15] MEDS ORDERED: ORAPRED LIQUID PO SCH (21:00)
[2017-02-15] MEDS: CALTRATE 600 PO SCH (21:41)
[2017-02-15] MEDS: MELATONIN PO SCH ×2 (21:41→23:22)
[2017-02-15] MEDS: LACTULOSE PO SCH (21:41)
[2017-02-15] MEDS: ALDACTONE PO SCH (21:42)
[2017-02-16 07:10] LABS: ALBUMIN 2.5 g/dL (3.5-5.0); CALCIUM 7.9 mg/dL (8.8-10.2); MAGNESIUM 2.2 mg/dL (1.5-2.7); POTASSIUM 3.5 mmol/L (3.5-5.1)
[2017-02-16 07:13] LABS: TOTAL BILIRUBIN 38.5 mg/dL (0.20-1.00)
[2017-02-16] MEDS ORDERED: CENTRUM TABLET PO SCH (09:00)
[2017-02-16] MEDS ORDERED: ASPIRIN EC PO SCH (09:00)
[2017-02-16] MEDS: LACTULOSE PO SCH ×3 (09:12→16:14)
[2017-02-16] MEDS: CALTRATE 600 PO SCH ×2 (09:15→21:30)
[2017-02-16] MEDS: ALDACTONE PO SCH (09:16)
[2017-02-16] MEDS: KLOR-CON PO SCH (09:16)
[2017-02-16] MEDS: TOPROL XL PO SCH (09:16)
[2017-02-16] MEDS: PREDNISONE PO SCH (09:16)
[2017-02-16] MEDS: NS 1,000 ML IV SCH (12:24)
[2017-02-16] MEDS ORDERED: LASIX IV ONE (12:42)
[2017-02-16] MEDS ORDERED: ALBUMIN 25% IV ONE (12:42)
--- NOTE | 2017-02-16 13:53 | PROGRESS NOTE ---
DATE: 02/16/2017 SUBJECTIVE: Today, Mr. Ji refers to be doing relatively fine. He does not feel like he is sick. He denies any acholia. He denies any abdominal pain. There is no skin itching. OBJECTIVE: Vital Signs: Blood pressure 91/52, pulse 72, respirations 16, temperature 98.2 degrees. General: Mr. Ji is a 71-year-old male. He is in bed. He looks extensively yellow. HEENT: Mucosa is pink and moist. About 4+ icteric. Neck: Supple. No JVD. Chest: Good air entry bilateral. No crepitations. Cardiovascular: Regular rate and rhythm. Abdomen: Soft, distended. There is collateral circulation on the anterior abdominal wall. There is a fluid shift in the abdominal cavity, consistent with ascites. Extremities: About 3+ pedal edema. OIL FIELD PUMPER: Patient is awake, alert, and oriented x4. There is no focal neurological deficit. Skin: The face and the upper chest does have telangiectasia and spider angiomata. LABORATORY DATA: 1. WBC is 24.11, hemoglobin is 14.5, platelet count of 162,000. Chemistry is reviewed. Sodium is 137, potassium is 3.5, chloride 98, bicarb is 27. BUN is 52, creatinine is 2.3. AST is 140, ALT is 134, alkaline phosphatase is 488. Total protein is 4.0, albumin is 3.5. PT is 15.9, INR is 1.48. 2. Imaging studies: A chest x-ray was done on presentation, which shows right basilar atelectasis. 3. ASSESSMENT: 1. Acute alcoholic hepatitis.Alcohol discriminant factor score is 56. Needs steroids 2. Evidence of cirrhosis of the liver, likely secondary to alcohol. The patient's MELD score is 32. Child-Parra score is C. 3. Hypercoagulability, secondary to cirrhosis. Vit K has been given. 4. Protein calorie malnutrition. 5. Fluid overload, likely due to underlying cirrhosis. 6. Acute kidney injury. I think this is probably related to low perfusion to the kidney due to reduced effective intravascular pressure. PLAN: 1. We are going to do an ultrasound of the renals. 2. We are going to tap the abdomen and do studies on the ascitic fluid. 3. We will continue with his bowel prep medications. 4. The patient has been given a dose of ceftriaxone. I think I am going to continue with this until we see the results of the tap. 5. I will also do urine studies to better categorize the acute kidney injury. 6. The patient does have significant fluid overload, and albumin is low. I will give him 100 mg of albumin IV. After that, give him 80 mg of Lasix to see if we can enhance the kidney perfusion. cc: Lit Pollard MD MTDD
--- NOTE | 2017-02-16 14:47 | Diag Imaging Result Doc PS360 ---
US PARACENTESIS - 02/16/2017 INDICATION: ascites COMPARISON: None FINDINGS: The risks and benefits of the procedure were discussed with the patient. All questions were answered. Written and verbal consent was obtained. Ultrasound scanning demonstrated ascites. Overlying skin was prepped and draped in sterile fashion. Local anesthesia was achieved with injection of 10 cc 1% lidocaine. The paracentesis catheter was advanced until the return of ascites fluid. 3 L of dark yellow fluid was aspirated. The catheter was withdrawn intact. There were no known complications. IMPRESSION: Technically successful ultrasound-guided paracentesis with no known complications. Electronically signed by Sanjay Tilley 02/16/2017 2:45 PM
--- NOTE | 2017-02-16 14:48 | Diag Imaging Result Doc PS360 ---
EXAM: US RENAL 2 (RETROPER) COMPLETE HISTORY: cyn/arf TECHNIQUE: COMPARISON: None. FINDINGS: The right kidney measures 11.1 x 5.4 x 5.2 cm. Normal renal echotexture and cortical thickness. No renal stones or hydronephrosis. No renal mass. The left kidney measures 11.5 x 5.8 x 5.2 cm. Normal renal echogenicity and cortical thickness. There is a 7 mm cyst inferiorly. No stone or hydronephrosis. No solid renal mass. The urinary bladder is moderately distended and appears normal. The patient is noted to have ascites about the liver IMPRESSION: Normal renal ultrasound. There is abdominal ascites. Electronically signed by Mau Pitts 02/16/2017 2:46 PM
[2017-02-16] MEDS ORDERED: VITAMIN K 10 MG in NS 50 ML IV ONE (15:30)
[2017-02-16 16:01] LABS: UR SODIUM 30 mmoll
[2017-02-16 16:08] LABS: UR UREA NITROGEN RANDOM 1179 mg/dL
[2017-02-16] MEDS: LEVAQUIN 500 MG/D5W 500 MG/100 ML IVPB IV SCH (17:24)
[2017-02-16 19:30] LABS: DIFF NEEDED? YES; MONOS 58 %; POLYS 42 %; WBC BF 38 /cumm
[2017-02-16 19:33] LABS: TOTAL PROT BODY FLUID 0.8 g/dL
[2017-02-16] MEDS: CENTRUM SILVER PO SCH (21:00)
--- NOTE | 2017-02-16 21:10 | PROGRESS NOTE ---
DATE: 02/16/2017 REQUESTING PHYSICIAN: Cm Lucas MD PRIMARY CARE DOCTOR: Nito Denis MD PRIMARY GI DOCTOR: Mikal Escobar MD SUBJECTIVE: The patient was admitted yesterday after I saw him in the clinic. Patient had worsening alcoholic hepatitis. His bilirubin was 44 on outpatient check. He presented to the hospital after I spoke to the ER physician. He was admitted overnight. He has been on IV fluids. His bilirubin has trended down to 38 mg/dL. He continues to have difficulty sleeping and has anorexia and decreased p.o. intake. He denies any nausea, vomiting, or any vomiting blood or passing blood in the stools. He does have spontaneous bruises on the upper extremities. He denies any fevers, rigors, chills. OBJECTIVE: Vital signs: Temperature is 97.7, pulse rate of 70, respiratory rate 16, blood pressure 116/70, saturating 98% room air. Body weight of 207 pounds 11.2 ounces. General appearance: Obese, lying in bed, in no acute distress. HEENT: Icteric sclerae, icteric skin. No pallor. Neck: Supple. Abdomen: Obese, positive ascites. No rebound. No guarding. Bowel sounds are present. Extremities: No cyanosis or clubbing. Bilateral upper extremity bruising noted. Lower extremity bilateral edema noted. Neurologic: He is awake, alert, answers simple questions. He is oriented to time, place, and person. LABORATORY AND IMAGING: His hemoglobin and hematocrit is 14.5 and 41.2, white count of 24.1, platelet count of 162,000, MCV of 103. Sodium 137, potassium 3.5, chloride 98, bicarb 22, anion gap of 17. BUN of 52, creatinine of 2.2. Glucose of 105. Calcium is 7.9, magnesium 2.2. Total bilirubin is 38.5, AST 140, ALT 134, alkaline phosphatase is 480, ammonia of 47. Total protein of 4, albumin of 2.5, amylase of 33, lactate of 1.9. He had an ascitic tap done where 3 L was removed and it showed 38 white cells, 42% polymorphonuclear white cells, total albumin 0.7, SAAG more than 1.1 suggesting portal hypertension and liver cirrhosis. Ultrasound paracentesis showed 3 L of dark yellowish fluid was aspirated. He had a renal ultrasound done which showed patient noted to have ascites around the liver. Chest x-ray was done and in the ER that showed right basilar atelectasis. IMPRESSION AND PLAN: 1. Acute alcoholic hepatitis with a MELD score of 32. 2. Likely alcoholic cirrhosis complicated with portal hypertension, cirrhosis, ascites. 3. Ascites, status post ultrasound-guided paracentesis with SAAG more than 1.1 suggesting portal evident cirrhosis. 4. Hypoalbuminemia. 5. Coagulopathy. 6. Fluid overload. 7. Acute kidney injury. Question of hepatorenal syndrome. 8. Severe jaundice. RECOMMENDATIONS: 1. We will continue supportive treatment and we will start on pentoxifylline 400 mg p.o. b.i.d., depending on some steroids, his white count is high, so we have to cover him with antibiotics. We will start him on Levaquin. We will start on PPIs. We will give him albumin 25 g IV q.3 days. He received 100 g albumin today on presentation. 2. We will continue on lactulose 15 mL t.i.d. and will also give him Xifaxan 550 mg p.o. b.i.d. We will keep him on vitamin K for coagulopathy. We will give melatonin for insomnia. 3. We will hold patient's anticoagulation, including aspirin for now as the patient appears to be in liver failure. 4. Further recommendations to follow pending MELD score. I discussed the plan of care with the patient and family. cc: MD Polo Mcgregor MD David Francis, MD Alexis R. Penot, MD Raphael K. Quansah, MD MTDD
[2017-02-16] MEDS: TRENTAL PO SCH (21:29)
[2017-02-16] MEDS: XIFAXAN PO SCH (21:29)
[2017-02-16] MEDS: MELATONIN PO SCH (21:29)
[2017-02-17 06:38] LABS: ALBUMIN 3.2 g/dL (3.5-5.0); CALCIUM 8.5 mg/dL (8.8-10.2); TOTAL BILIRUBIN 41.68 mg/dL (0.20-1.00); TOTAL PROTEIN 4.3 g/dL (6.3-8.3)
[2017-02-17 07:35] LABS: BASO% 0.1 % (0.0-0.8); HEMATOCRIT 32.8 % (42.0-52.0); HEMOGLOBIN 11.3 g/dL (14.0-18.0); IMM GRAN% 0.8 % (0.0-0.5); LYMPH# 0.76 X1000 (1.2-3.4); LYMPH% 5.9 % (20.5-51.1); MANUAL DIFF NEEDED? YES; MCH 35.3 PG (27-31); MCHC 34.5 g/dL (33-37); MCV 102.5 FL (81-99); MONO# 0.68 X1000 (0.11-0.59); MONO% 5.3 % (1.7-9.3); NEUT% 87.9 % (42.2-75.2); PLT 101 X1000 (130-400)
[2017-02-17 07:55] LABS: BANDS 2 % (0-1); LYMPHS 2 % (21-51); MONO 2 % (1-9)
[2017-02-17] MEDS: ALBUMIN 25% IV SCH (08:51)
[2017-02-17] MEDS: TRENTAL PO SCH ×3 (08:51→21:14)
[2017-02-17] MEDS: KLOR-CON PO SCH (08:52)
[2017-02-17] MEDS: CALTRATE 600 PO SCH ×2 (08:53→21:14)
[2017-02-17] MEDS: LACTULOSE PO SCH ×3 (08:53→18:44)
[2017-02-17] MEDS: XIFAXAN PO SCH ×2 (08:54→21:15)
[2017-02-17] MEDS: PREDNISONE PO SCH (08:54)
[2017-02-17] MEDS: CENTRUM SILVER PO SCH ×2 (08:54→21:14)
[2017-02-17] MEDS ORDERED: ALDACTONE PO SCH (09:00)
[2017-02-17] MEDS ORDERED: THERA M PLUS PO SCH (09:00)
[2017-02-17] MEDS: TOPROL XL PO SCH (10:31)
--- NOTE | 2017-02-17 14:04 | PROGRESS NOTE ---
DATE: 02/17/2017 SUBJECTIVE: This patient states that he is doing relatively fine. He is complaining of abdominal distention and discomfort. He does not have appetite. OBJECTIVE: Vital Signs: Temperature 98.1 degrees, pulse 66, blood pressure 90/62, oxygen saturation 99 on room air. HEENT: Head normocephalic. No trauma. PERRLA. Mucosa is pink. Skin: Yellow, jaundiced and spider angiomata. Chest: Clear to auscultation. No wheezing. No rales. Abdomen: Soft, distended. There is collateral circulation on the anterior abdominal wall. Ascites. Extremities: 3+ lower extremity edema. Neurological examination: The patient is alert and oriented x3. No focal neurological deficits. LABORATORY: WBC 12.7, hemoglobin 11.3, hematocrit 32.8, platelets 101. Sodium 141, potassium 3, chloride 98, bicarbonate 25, BUN 51, creatinine 2, glucose 110, calcium 8.5, AST 100, ALT 99, alkaline phosphatase 347, albumin 3.2. ASSESSMENT AND PLAN: 1. Acute alcoholic hepatitis. His alcohol discriminant factor score was already measured; it is around 56. We will continue with steroids. 2. Evidence of liver cirrhosis secondary to alcohol. Apparently this patient has been drinking for the past 40 years and he stopped drinking 15-20 days ago. He has been drinking daily. This patient's MELD score is 32 and Child-Parra score is C. 3. Hypercoagulability likely secondary to liver cirrhosis. 4. Protein calorie malnutrition. Continue with the same management. 5. Fluid overload secondary to liver cirrhosis. Acute kidney injury. This is likely secondary to hypoperfusion to the kidney. He is getting albumin. I have consulted Nephrology Department to see if we need to add treatment. We will wait for their recommendations. cc: Luisito Briggs MD
[2017-02-17] MEDS: LEVAQUIN 500 MG/D5W 500 MG/100 ML IVPB IV SCH (14:31)
[2017-02-17] MEDS ORDERED: SODIUM CHLORIDE 0.9% INJ ONE ×2 (17:03→19:30)
[2017-02-17] MEDS ORDERED: PROTONIX IV ONE (17:03)
--- NOTE | 2017-02-17 19:11 | PROGRESS NOTE ---
DATE: 02/17/2017 SUBJECTIVE: Patient currently resting in bed. He denies any new events overnight. He denies any nausea, vomiting, or vomiting blood. He denies any blood in the stools. He denies any fevers, rigors, chills. OBJECTIVE: Vital signs: Temperature 98.1, pulse rate of 66, respiratory rate 16, blood pressure of 90/60, saturating 100% on room air. General Appearance: Obese, lying in bed , in no distress. HEENT: Icteric sclerae. Pale conjunctivae. Neck: Supple. Abdomen: Obese, soft, nontender. Positive ascites. No guarding. No rebound. Extremities: No cyanosis, clubbing. Bilateral lower extremities edema noted. Neurologic: He is alert, awake, oriented. LABS: Hemoglobin and hematocrit are 11.3 and 32.8, white count of 12.79, platelet count of 101,000, MCV of 102.5. Sodium 141, potassium 3, chloride 98, bicarb 25, anion gap 18, BUN of 51, creatinine 2, glucose of 110, calcium 8.5, magnesium 2.2. Total bilirubin is 41.6, AST 100, ALT 99, alkaline phosphatase 347. Total protein is 4.3, albumin of 3.2. AFB is 4. Abdominal MRI was done on 02/01/2017 which showed: 1. Hepatic steatosis. 2. Borderline to mild epigastric and celiac lymphadenopathy. 3. No discrete pancreatic mass. 4. No common bile duct filling defect or stricture identified. IMPRESSION: 1. Alcoholic hepatitis. 2. Likely alcoholic liver cirrhosis complicated by portal hypertension, ascites , status post drainage yesterday. 3. Leukocytosis. 4. Hypoalbuminemia. 5. Coagulopathy. 6. Fluid overload. 7. Acute kidney injury. 8. Severe jaundice. PLAN: 1. The patient will continue current plan of care. We will continue on pentoxifylline 400 mg p.o. t.i.d. He will continue on prednisone 40 mg daily. 2. He will continue on Levaquin once daily. 3. We will give albumin 25 g IV once daily for 3 days. 4. Will keep him on lactulose 15 mL p.o. t.i.d. and hold for more than 3 bowel movements in 24 hours. He will continue Xifaxan 550 mg p.o. b.i.d. Continue MVI once daily. 5. Will continue to follow up his liver enzymes. Further recommended pending hospital course. cc: MD Dr. Shawn Mcgregor MD Alexis R. Penot, MD MTDD
[2017-02-17 19:17] LABS: URINE SOURCE CATH
[2017-02-17 19:20] LABS: BLOOD URINE NEGATIVE (NEGATIVE); COLOR YELLOW; GLUCOSE URINE NEGATIVE (NEGATIVE); LEUKOCYTES URINE NEGATIVE (NEGATIVE); NITRITE URINE NEGATIVE (NEGATIVE); PH URINE 6.5; PROTEIN URINE 30 mg/dL (NEGATIVE); SP GRAVITY URINE 1.017; TURBIDITY URINE CLEAR (CLEAR); UROBILINOGEN URINE 2 mg/dL (NORMAL)
[2017-02-17 19:22] LABS: URINE MICRO REVIEW NEEDED? YES
[2017-02-17 19:23] LABS: BILIRUBIN URINE LARGE (NEGATIVE); UR EPITHELIAL CELLS <10 /HPF (<10); URINE BACTERIA NEGATIVE /HPF; URINE RBC <10 /HPF (<10); URINE WBC <10 /HPF (<10)
[2017-02-17] MEDS ORDERED: PHENERGAN IV ONE (19:30)
[2017-02-17 19:42] LABS: URINE CASTS NONE SEEN; URINE CRYSTALS NONE SEEN; URINE SMALL ROUND CELLS NONE SEEN
[2017-02-17 19:57] LABS: UR CREAT RANDOM 69.3 mg/dL (14-26); UR PROT RANDOM 36.6 mg/dL
[2017-02-17 20:26] LABS: HEMATOCRIT 33.7 % (42.0-52.0); HEMOGLOBIN 12.1 g/dL (14.0-18.0)
[2017-02-17] MEDS: MELATONIN PO SCH (21:15)
[2017-02-17] MEDS ORDERED: TUMS PO ONE (22:24)
[2017-02-18] MEDS: PHENERGAN IV PRN ×4 (00:20→18:21)
[2017-02-18] MEDS: SODIUM CHLORIDE 0.9% INJ PRN ×4 (00:21→12:09)
[2017-02-18 06:15] LABS: HEMATOCRIT 34.1 % (42.0-52.0); HEMOGLOBIN 11.8 g/dL (14.0-18.0); MCH 36.6 PG (27-31); MCHC 34.6 g/dL (33-37); MCV 105.9 FL (81-99); MPV 12.3 FL (7.4-10.4); RBC 3.22 XMIL (4.7-6.1)
[2017-02-18 06:21] LABS: ALBUMIN 3.5 g/dL (3.5-5.0); CALCIUM 9.6 mg/dL (8.8-10.2); POTASSIUM 3.3 mmol/L (3.5-5.1)
[2017-02-18 08:03] LABS: ALBUMIN 3.3 g/dL (3.5-5.0); ALKALINE PHOSPHATASE 329 U/L (32-122); DIRECT BILIRUBIN > 10.00 mg/dL (0.00-0.20); GOT 114 U/L (10-34); GPT 109 U/L (10-44); TOTAL PROTEIN 4.4 g/dL (6.3-8.3)
[2017-02-18] MEDS: TOPROL XL PO SCH (08:35)
[2017-02-18] MEDS: LACTULOSE PO SCH ×3 (08:35→16:55)
[2017-02-18] MEDS: CALTRATE 600 PO SCH ×2 (08:35→21:29)
[2017-02-18] MEDS: KLOR-CON PO SCH (08:35)
[2017-02-18] MEDS: XIFAXAN PO SCH ×2 (08:36→21:29)
[2017-02-18] MEDS: CENTRUM SILVER PO SCH ×2 (08:36→21:29)
[2017-02-18] MEDS: PROTONIX IV SCH (08:37)
[2017-02-18] MEDS: TRENTAL PO SCH ×3 (08:37→21:29)
[2017-02-18] MEDS: PREDNISONE PO SCH (08:37)
[2017-02-18] MEDS: ALBUMIN 25% IV SCH (10:26)
--- NOTE | 2017-02-18 11:26 | CONSULTATION ---
DATE OF CONSULTATION: 02/18/2017 REASON FOR CONSULTATION: Acute kidney injury. HISTORY OF PRESENT ILLNESS: Mr. iJ is a 71-year-old white male who is followed by Dr. Denis. He has chronic alcoholism and alcoholic cirrhosis. He continues to drink whiskey on a daily basis, about a pint. He has had a recent coronary disease and required PCI. 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 Based on these findings, he was admitted to the hospital for acute management. His initial evaluation found a creatinine of 2.6 with a BUN of 56. Bilirubin was markedly elevated at 44 and his INR was 1.48 and albumin was 2.9. He has been treated including paracentesis and treatment for encephalopathy. He has received antibiotics though his ascites had only 38 white cells when examined. He has had some improvement though he is still unable to relate his recent history. 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 His urine output has ranged from 0.5 L to 1.5 L in a day. PAST MEDICAL HISTORY: As above. He also has hypertension and hyperlipidemia. SOCIAL HISTORY: As above. FAMILY HISTORY: Positive for vascular disease. CURRENT MEDICATIONS: Reviewed, as listed. ALLERGIES: Montelukast. PHYSICAL EXAMINATION: Vital Signs: Blood pressure 114/68, heart rate 51, respiration 18, afebrile. General: He is an elderly, chronically ill man in no acute distress. Skin: Warm and dry and jaundiced with spider angiomata. HEENT: Conjunctivae are pink. Pupils are equal. Oropharynx is dry but otherwise clear. Neck: Supple. Neck veins are not visible. Trachea is midline. Heart: Regular without gallops or murmurs. Lungs: Have equal breath sounds. No crackles. Abdomen: Moderately distended but soft. Bowel sounds are present. No palpable organomegaly or masses. Extremities: Have 1+ edema. No clubbing or cyanosis. IMPRESSION: Acute kidney injury. Progressive improvement in his laboratory data since admission. His urine studies did not suggests prerenal state at this point. His renal ultrasound was normal. From my perspective there are no medical changes that are required at this time. We will continue to observe as he improves. Certainly, he has no indications for renal replacement at this time. cc: Ryan Ureña MD
[2017-02-18] MEDS: LEVAQUIN 500 MG/D5W 500 MG/100 ML IVPB IV SCH (14:55)
--- NOTE | 2017-02-18 15:29 | PROGRESS NOTE ---
DATE: 02/18/2017 SUBJECTIVE: Patient has no complaints except he does not feel very well. OBJECTIVE: Vital Signs: Blood pressure 110/62, heart rate 62, respiratory rate 16, temperature 98.3 degrees. HEENT: He is extremely jaundiced. Cardiovascular: Regular rate and rhythm. Pulmonary: Bilateral breath sounds. Clear to auscultation. GI: Soft, nontender, nondistended. Bowel sounds are positive. Abdominal exam, he does have fluid wave noted. Extremities: No clubbing or cyanosis. Lymphatic Exam: No peripheral edema. Neurological Exam: Nonfocal. LABORATORY DATA: White count 11, hemoglobin and hematocrit 11 and 34, platelets 89,000. Potassium 3.3, creatinine 1.7, bilirubin 42, direct greater than 20. AST and ALT are 114 and 109. INR was 1.48. PROBLEM LIST: 1. Acute alcoholic hepatitis. We will continue his steroids based on his discriminant factor. 2. Cirrhosis. He is stable but he only stopped drinking 15-20 days ago. He has been drinking daily. 3. Severe protein-calorie malnutrition. Continue nutritional supplementation. 4. Fluid overload with acute kidney injury. We will continue to monitor. Nephrology has been consulted. Continue to monitor closely. Family has requested evaluation by [facility]. I will contact them but with his recent alcohol use I do not think he is going to be a transplant candidate. cc: Cm Lucas MD
[2017-02-18] MEDS: SODIUM CHLORIDE 0.9% INJ SCH (18:21)
[2017-02-18] MEDS: MELATONIN PO SCH (21:29)
[2017-02-19] MEDS: PHENERGAN IV PRN ×4 (00:30→19:35)
[2017-02-19] MEDS: SODIUM CHLORIDE 0.9% INJ PRN ×2 (00:30→06:24)
[2017-02-19 05:29] LABS: HEMATOCRIT 35.7 % (42.0-52.0); HEMOGLOBIN 12.2 g/dL (14.0-18.0); MCH 36.2 PG (27-31); MCHC 34.2 g/dL (33-37); MCV 105.9 FL (81-99); MPV 12.5 FL (7.4-10.4); RBC 3.37 XMIL (4.7-6.1)
[2017-02-19 05:35] LABS: INR 1.52; PROTIME 16.4 Seconds (9.2-11.7)
[2017-02-19 05:42] LABS: CALCIUM 8.8 mg/dL (8.8-10.2); POTASSIUM 3.3 mmol/L (3.5-5.1)
[2017-02-19 05:53] LABS: ALBUMIN 3.4 g/dL (3.5-5.0); ALKALINE PHOSPHATASE 356 U/L (32-122); DIRECT BILIRUBIN > 10.00 mg/dL (0.00-0.20); GOT 137 U/L (10-34); GPT 127 U/L (10-44); TOTAL PROTEIN 4.1 g/dL (6.3-8.3)
[2017-02-19 06:04] LABS: TOTAL BILIRUBIN 43.59 mg/dL (0.20-1.00)
[2017-02-19] MEDS: ALBUMIN 25% IV SCH (09:20)
[2017-02-19] MEDS: TRENTAL PO SCH ×4 (09:21→20:43)
[2017-02-19] MEDS: SODIUM CHLORIDE 0.9% INJ SCH ×3 (09:22→19:35)
[2017-02-19] MEDS: PROTONIX IV SCH (09:22)
[2017-02-19] MEDS: XIFAXAN PO SCH ×2 (09:22→20:43)
[2017-02-19] MEDS: LACTULOSE PO SCH ×3 (09:22→16:47)
[2017-02-19] MEDS: CALTRATE 600 PO SCH ×2 (09:23→20:43)
[2017-02-19] MEDS: CENTRUM SILVER PO SCH ×2 (09:23→20:43)
[2017-02-19] MEDS: KLOR-CON PO SCH (09:23)
[2017-02-19] MEDS: PREDNISONE PO SCH (09:23)
[2017-02-19] MEDS: TOPROL XL PO SCH (09:24)
[2017-02-19] MEDS: LEVAQUIN 500 MG/D5W 500 MG/100 ML IVPB IV SCH (16:47)
--- NOTE | 2017-02-19 19:51 | PROGRESS NOTE ---
DATE: 02/19/2017 SUBJECTIVE: Patient has no focal complaints. He feels better today. OBJECTIVE: Vital signs: Blood pressure 99/67, heart rate 99, respiratory rate 18, temperature 98.4 degrees, 96% on room air. Cardiovascular: Regular rate and rhythm. Pulmonary: Bilateral breath sounds. Clear to auscultation. GI: Soft, nontender, nondistended. Bowel sounds are positive. Extremities: No clubbing or cyanosis. Lymphatics: No peripheral edema. Neurological: Nonfocal. Skin: Extremely jaundiced. Abdomen: Was distended with ascites. Fluid wave is positive. LABORATORY DATA: White count 13, hemoglobin and hematocrit 23, 35, platelets 89,000. INR is 1.5. Potassium 3.3, creatinine 1.5, total bilirubin is 44 with greater than 10 direct, albumin is 3.4. PROBLEM LIST: 1. Alcoholic hepatitis. His discriminant function is around 64. He is on steroids. We are going to continue to follow. 2. Alcoholic cirrhosis with decompensation. He stopped drinking about 2 weeks ago. He will need a transplant or hepatology referral when stabilized. At this point he has not been sober long enough to get consideration for listing it seems and I discussed it with the family and we will continue follow. 3. Severe protein-calorie malnutrition. Continue supplementation. 4. Acute kidney injury. This seems to be resolving. Will continue to monitor. Nephrology is following. 5. Ascites. He will likely need another paracentesis when he is stable. DISPOSITION: Pending clinical status. Again we had a long discussion about transfer and other issues going on with him but he is not going to be amenable to treatment unless he maintains sobriety so we will continue to follow very closely. cc: Cm Lucas MD
[2017-02-19] MEDS: MELATONIN PO SCH (20:43)
[2017-02-20 06:42] LABS: INR 1.53; PROTIME 16.5 Seconds (9.2-11.7)
[2017-02-20 07:06] LABS: HEMATOCRIT 35.3 % (42.0-52.0); HEMOGLOBIN 12.6 g/dL (14.0-18.0); MCH 36.1 PG (27-31); MCHC 35.7 g/dL (33-37); MCV 101.1 FL (81-99); MPV 12.9 FL (7.4-10.4); RBC 3.49 XMIL (4.7-6.1)
[2017-02-20 07:13] LABS: ALBUMIN 3.4 g/dL (3.5-5.0); CALCIUM 8.5 mg/dL (8.8-10.2); POTASSIUM 3.3 mmol/L (3.5-5.1)
[2017-02-20 07:15] LABS: ALBUMIN 3.2 g/dL (3.5-5.0); ALKALINE PHOSPHATASE 403 U/L (32-122); DIRECT BILIRUBIN > 10.00 mg/dL (0.00-0.20); GOT 140 U/L (10-34); GPT 145 U/L (10-44); TOTAL PROTEIN 4.4 g/dL (6.3-8.3)
[2017-02-20 07:17] LABS: TOTAL BILIRUBIN 45.83 mg/dL (0.20-1.00)
[2017-02-20] MEDS ORDERED: CARDIZEM PO PRN (10:13)
[2017-02-20] MEDS: SODIUM CHLORIDE 0.9% INJ SCH (10:29)
[2017-02-20] MEDS: PROTONIX IV SCH (10:29)
[2017-02-20] MEDS: VITAMIN B-1 PO SCH (10:30)
[2017-02-20] MEDS: FOLIC ACID PO SCH (10:30)
[2017-02-20] MEDS: KLOR-CON PO SCH (10:30)
[2017-02-20] MEDS: PREDNISONE PO SCH (10:30)
[2017-02-20] MEDS: XIFAXAN PO SCH ×2 (10:31→20:02)
[2017-02-20] MEDS: LACTULOSE PO SCH ×3 (10:31→17:47)
[2017-02-20] MEDS: CENTRUM SILVER PO SCH ×2 (10:31→20:01)
[2017-02-20] MEDS: CALTRATE 600 PO SCH ×2 (10:31→20:01)
[2017-02-20] MEDS: TRENTAL PO SCH ×3 (10:31→20:01)
[2017-02-20] MEDS: TOPROL XL PO SCH (10:31)
[2017-02-20] MEDS: PHENERGAN IV PRN ×2 (11:22→17:47)
[2017-02-20] MEDS ORDERED: VITAMIN K SUBQ ONE (11:25)
[2017-02-20] MEDS: LEVAQUIN 500 MG/D5W 500 MG/100 ML IVPB IV SCH (15:06)
[2017-02-20] MEDS ORDERED: HYDROXYZINE PO PRN (15:31)
--- NOTE | 2017-02-20 18:33 | PROGRESS NOTE ---
DATE: 02/20/2017 SUBJECTIVE: Patient has no focal complaints. He feels a little jittery. OBJECTIVE: Vital signs: Blood pressure 107/70, heart rate 76, respiratory 18, temperature 98.2 degrees, 96% on room air. Cardiovascular: Regular rate and rhythm. Pulmonary: Bilateral breath sounds. Clear to auscultation. GI: Soft, nontender, nondistended. Bowel sounds are positive. LABORATORY DATA: White count up to 21, hemoglobin and hematocrit 12 and 35, platelets 98,000, INR 1.5. Creatinine 1.5, total bilirubin 45.8, greater than 10 direct, AST and ALT of 144 and 145, albumin of 3.2. PROBLEM LIST: 1. Alcoholic hepatitis. He is on steroids and has been stable on that based on his discriminant function. Prednisone has been since the 2nd so 5 days. 2. Likely underlying cirrhosis or developing cirrhosis. He is still significantly decompensated but I do not think he is a transplant candidate because he has only been sober for about 2 weeks prior to admission. I guess at this point it has been 22 days. 3. Severe protein-calorie malnutrition. He is on IV supplementation. 4. Acute kidney injury. Creatinine is stable at 1.5. 5. Ascites. He will likely need paracentesis prior to discharge. DISPOSITION: Poor short and long-term prognosis. He is on pentoxifylline and prednisone, hopefully this will help tide him over until he stabilizes for outpatient evaluation for hepatology. cc: Cm Lucas MD
[2017-02-20] MEDS: MAALOX PLUS LIQUID PO PRN (20:01)
[2017-02-20] MEDS: MELATONIN PO SCH (20:02)
[2017-02-21 05:55] LABS: HEMOGLOBIN 12.7 g/dL (14.0-18.0); MCH 37.5 PG (27-31); MCHC 36.3 g/dL (33-37); MCV 103.2 FL (81-99); MPV 12.3 FL (7.4-10.4); RBC 3.39 XMIL (4.7-6.1)
[2017-02-21 06:06] LABS: INR 1.54; PROTIME 16.6 Seconds (9.2-11.7)
[2017-02-21 06:29] LABS: ALBUMIN 2.9 g/dL (3.5-5.0); CALCIUM 8.7 mg/dL (8.8-10.2); POTASSIUM 3.4 mmol/L (3.5-5.1)
[2017-02-21 06:42] LABS: CALCIUM 8.5 mg/dL (8.8-10.2); MAGNESIUM 2.1 mg/dL (1.5-2.7); POTASSIUM 3.2 mmol/L (3.5-5.1)
--- NOTE | 2017-02-21 06:48 | EKG Report ---
Test Performed on : 02/21/2017 06:34:07 AM Test Reason : sinus arrythmia Blood Pressure : / mmHG Vent. Rate : 078 BPM Atrial Rate : 078 BPM P-R Int : 164 ms QRS Dur : 156 ms QT Int : 460 ms P-R-T Axes : 035 -30 037 degrees QTc Int : 524 ms Sinus rhythm. with premature supraventricular complexes. and with occasional premature ventricular c omplexes. Left axis deviation Right bundle branch block Septal infarct (cited on or before 06-MAR-2015) Abnormal ECG When compared with ECG of 01-FEB-2017 13:53, premature ventricular complexes. are now present Confirmed by Sky Noe DO ([id number]) on 02/21/2017 5:46:36 PM
[2017-02-21 06:53] LABS: ALKALINE PHOSPHATASE 423 U/L (32-122); GOT 146 U/L (10-34); GPT 159 U/L (10-44); TOTAL PROTEIN 3.7 g/dL (6.3-8.3)
[2017-02-21 06:55] LABS: DIRECT BILIRUBIN > 10.00 mg/dL (0.00-0.20); TOTAL BILIRUBIN 42.01 mg/dL (0.20-1.00)
[2017-02-21] MEDS ORDERED: KLOR-CON PO ONE (07:32)
[2017-02-21] MEDS: LACTULOSE PO SCH ×3 (08:57→18:21)
[2017-02-21] MEDS: PREDNISONE PO SCH (08:57)
[2017-02-21] MEDS: SODIUM CHLORIDE 0.9% INJ SCH (08:57)
[2017-02-21] MEDS: VITAMIN B-1 PO SCH (08:57)
[2017-02-21] MEDS: XIFAXAN PO SCH ×2 (08:57→21:57)
[2017-02-21] MEDS: TOPROL XL PO SCH (08:57)
[2017-02-21] MEDS: PROTONIX IV SCH (08:57)
[2017-02-21] MEDS: FOLIC ACID PO SCH (08:58)
[2017-02-21] MEDS: CALTRATE 600 PO SCH ×2 (08:58→21:57)
[2017-02-21] MEDS: CENTRUM SILVER PO SCH ×2 (08:58→21:57)
[2017-02-21] MEDS: TRENTAL PO SCH ×3 (08:58→22:27)
--- NOTE | 2017-02-21 09:02 | PROGRESS NOTE ---
DATE: 02/21/2017 SUBJECTIVE: Mr. Ji is resting quietly in bed. He denies chest pain or increased work of breathing. States that he thinks he is feeling just a little bit better since his admission. OBJECTIVE: Most recent vital signs, temperature 97.5 degrees, blood pressure 118/64, heart rate 66, respirations 14. He is on room air. Last recorded saturation 100%. He has had 1140 in and 600 out per void. LABS: Sodium 138, potassium 3.2, chloride 102, CO2 18, BUN 32, creatinine 1.5, glucose 95, anion gap 18, calcium 8.7, phosphorus 3.5, albumin 2.9, magnesium 2.1. White count 20.61, hemoglobin 12.7, hematocrit 35, platelet count 86,000. Patient had a renal ultrasound indicating the right kidney measures 11.1, left measuring 11.5, ascites only noted. The ultrasound is abnormal. Patient's urine electrolytes indicated a FENA score of 0.51%. PHYSICAL EXAMINATION: General: This is a 71-year-old white male who is currently resting in bed. He is in no acute distress. Skin: Warm and dry. He is jaundiced with a spider angiomata. HEENT: Normocephalic atraumatic. He is icteric. Conjunctiva- pupils are equal and reactive to light. He is on room air. Neck: Supple. Trachea midline. No JVD. Cardiovascular: He is regular rate and rhythm. He is without murmur or gallop. Lungs: Clear to auscultation anteriorly. Equal excursion. Abdomen: Large, round. Positive ascites. Hypo bowel sounds. Genitourinary: Not inspected. Adequate void. Extremities: Patient has a dressing to his left elbow. He has multiple ecchymoses to the upper extremities, 1+ lower extremity edema. No clubbing or cyanosis. ASSESSMENT AND PLAN: 1. Acute kidney injury. Patient has had an improvement to his creatinine over the last several days since this admission. Urine studies indicated that he was volume depleted. He has received IV fluids. These are currently held at this time. Renal ultrasound was normal. No change is indicated from medical standpoint. Patient is close to his baseline of 0.9 beginning of this year. 2. Electrolytes- these are stable. Acid-base balance. This is stable. 3. Anemia. This is stable. 4. Leukocytosis. This is followed by the primary care team. 5. Acute hepatitis. Patient remains jaundiced. He has positive ascites followed by the primary care team. I would to thank you for allowing us to follow with this patient. Patient seen, data reviewed, discussed with Lily Collins on 02/21/17. I agree with the above assessment and plan of care. rg Dictated by LETICIA Sarmiento for Ryan Ureña MD cc: LETICIA Sarmiento MD [facility]
[2017-02-21] MEDS: MAALOX PLUS LIQUID PO PRN (11:48)
--- NOTE | 2017-02-21 12:00 | PROGRESS NOTE ---
DATE: 02/21/2017 SUBJECTIVE: The patient is resting in bed. He denies any new complaints. He denies any fevers, rigors, chills. He has been tolerating p.o. He had 2 bowel movements yesterday. He denies any vomiting, blood, passing blood in the stools. He denies any itching. OBJECTIVE: Vital Signs: His vital signs are temperature 97.5, pulse rate of 66, respiratory rate 14, blood pressure 118/64, saturating 100% on room air. General Appearance: Moderately nourished, lying in bed, in no acute distress. HEENT: Pale conjunctivae. Icteric sclerae. Skin: Icteric skin. Jaundiced throughout the body. Neck: Supple. Abdomen: Mildly protuberant, soft, nontender, mild distention noted. Positive ascites. No guarding. Extremities: No cyanosis or clubbing. Bruises noted over the upper and lower extremities. Neurologic: He is awake, alert, oriented x3. LABORATORY DATA: Hemoglobin and hematocrit are 12.7 and 35, white count of 20.6, platelet count of 86,000, MCV of 103.2. His INR is 1.54, PT of 16.6. Sodium 130, potassium 3.2, chloride 102, bicarbonate 18, anion gap of 18, BUN of 32, creatinine 1.5, glucose of 96, calcium is 8.5, phosphorus 3.5, magnesium 2.1. Total bilirubin 42, direct of more than 10. AST 146, ALT 159, alkaline phosphatase is 423, total protein is 3.7, albumin of 3. IMPRESSION AND PLAN: 1. Alcoholic hepatitis in the setting of chronic alcoholic liver disease/cirrhosis. He has been on pentoxifylline 400 mg by mouth 3 times daily, prednisone 40 with minimal improvement. We will start him on ursodiol 300 mg by mouth twice daily, and we will be avoiding any hepatotoxic drugs. We will keep him on multivitamin once daily. 2. I will continue him on a low sodium diet and fluid restriction to less than 2 liters in 24 hours. 3. Coagulopathy. We will watch his INR. We will give him vitamin K, the last was given yesterday. 4. Thrombocytopenia. We will continue to watch. 5. Mild anemia. We will continue to watch. 6. Gastrointestinal prophylaxis. He is on proton pump inhibitor. 7. Bowel regimen. He is already on lactulose. 8. Ascites we may have to plan for ultrasound-guided paracentesis, probably early this week. The above plan was discussed with the patient and all questions answered. cc: MD Cm Mcgregor MD David Francis, MD
[2017-02-21] MEDS ORDERED: VITAMIN K SUBQ ONE (12:43)
[2017-02-21] MEDS: LEVAQUIN 500 MG/D5W 500 MG/100 ML IVPB IV SCH (14:17)
--- NOTE | 2017-02-21 17:51 | PROGRESS NOTE ---
DATE: 02/21/2017 SUBJECTIVE: The patient is resting comfortably in bed. He has no complaints. He does state that he is concerned about his abdomen filling up with fluid. OBJECTIVE: Vital Signs: Temperature 97.5 degrees, blood pressure 118/64, heart rate 66, respirations 14, O2 saturations 100% on room air. General: This is an elderly male, lying in bed, in no acute distress. Skin: Positive for jaundice. Eyes: Positive for scleral icterus. Heart: S1, S2 normal. Regular rate and rhythm. Lungs: Clear to auscultation bilaterally. No wheezes, no rales. No rhonchi. Abdomen: Positive bowel sounds. Soft. Nontender. Positive for ascites. Extremities: Trace pedal edema. No cyanosis. No calf tenderness. Neurologic: The patient is alert and oriented x3. LABORATORY: White blood cell count 20, hemoglobin 12, hematocrit 35, platelets 86,000. Sodium 138, INR 1.5, potassium 3.2, chloride 102, CO2 18, BUN 32, creatinine 1.5, glucose 95, magnesium 2.1, glucose 116. ASSESSMENT AND PLAN: 1. Alcoholic hepatitis. Continue on prednisone and pentoxifylline as ordered by the accounts receivable bookkeeper. The patient's bilirubin is slightly improved. 2. Liver cirrhosis secondary to chronic alcoholic liver disease. The patient does have ascites. This will be addressed by the accounts receivable bookkeeper. The patient will likely require a paracentesis this week. 3. Coagulopathy. Unchanged. The patient will be receiving vitamin K today. 4. Chronic kidney disease. Stable. We will continue to monitor this closely. 5. Leukocytosis. This is likely steroid induced. The patient is afebrile and does not have an active source of infection. We will continue to monitor this closely. 6. Thrombocytopenia. Stable. We will continue to monitor this closely. 7. Hypokalemia. Replace the potassium. cc: Sarai Perez MD MTDD
[2017-02-21] MEDS: ACTIGALL PO SCH (21:57)
[2017-02-21] MEDS: DESYREL PO PRN (21:57)
[2017-02-21] MEDS: MELATONIN PO SCH (21:57)
[2017-02-22] MEDS: MAALOX PLUS LIQUID PO PRN (05:36)
[2017-02-22 07:02] LABS: HEMATOCRIT 38.2 % (42.0-52.0); HEMOGLOBIN 13.4 g/dL (14.0-18.0); MCH 35.9 PG (27-31); MCHC 35.1 g/dL (33-37); MCV 102.4 FL (81-99); MPV 12.8 FL (7.4-10.4); RBC 3.73 XMIL (4.7-6.1)
[2017-02-22 07:18] LABS: INR 1.49
[2017-02-22 07:44] LABS: CALCIUM 8.6 mg/dL (8.8-10.2); MAGNESIUM 2.2 mg/dL (1.5-2.7); POTASSIUM 3.7 mmol/L (3.5-5.1); TOTAL BILIRUBIN 44.69 mg/dL (0.20-1.00); TOTAL PROTEIN 4.3 g/dL (6.3-8.3)
--- NOTE | 2017-02-22 09:27 | PROGRESS NOTE ---
DATE: 02/22/2017 SUBJECTIVE: Mr. Ji is resting quietly in bed. He states that he continues to feel better than he has the day before. He denies any chest pain. No increased work of breathing though he does continue to profess to weakness. OBJECTIVE: His most recent vital signs, temperature 97.3, blood pressure 116/59 , heart rate 72, respirations 16. He is on room air. Last recorded saturation 99%. He has had 1506 in. They have recorded as only 1 mL out, though patient states that he is voiding adequate. LABS: Sodium is 133, potassium 3.7, chloride 98, CO2 of 17, BUN 38, creatinine 1.6, glucose 92. His anion gap is 18, calcium 8.6, magnesium 2.2. Albumin of 3. White count 24.47, hemoglobin 13.4, hematocrit 38.2, with a platelet count of 109,000. His PT is 16, INR of 1.49. His total bilirubin is 44.69 with an AST of 151, ALT of 162. PHYSICAL EXAM: General: This is a 71-year-old, white male. He is currently resting in bed. He is in no acute distress. Skin: Warm and dry. The patient remains jaundiced with spider angiomata noted. HEENT: Normocephalic, atraumatic. Conjunctiva is icteric. Pupils are equal and reactive to light. He remains on room air. Equal excursion. Lungs: Clear. Neck: Supple. Trachea midline. No JVD. Cardiovascular: Regular rate and rhythm without murmur or gallop. Abdomen: Large, distended. Positive ascites. Hypo bowel sounds. Genitourinary: Not inspected. Adequate void. Extremities: Has a dressing to the left elbow. Multiple ecchymoses to the upper extremities. Extremities: 1+ lower extremity edema. No clubbing or cyanosis. Neurological: Alert and oriented x3. ASSESSMENT AND PLAN: 1. Acute kidney injury. Patient continues to improve. Appears that today, creatinine has stabilized. He currently remains at 1.6 from 1.5 the last 24 hours. No indications for any intervention at this standpoint. We will continue to monitor daily labs. 2. Electrolytes and acid-base balance. These remain stable with mild acidosis. 3. Anemia. This remains stable. 4. Leukocytosis. This is followed by the primary care team. 5. Acute hepatitis with jaundice. We have spoken to the patient in regards with monitoring his p.o. intake and his salt intake. I would like to thank you for allowing us to follow with this patient. Patient seen, data reviewed, discussed with Lily Collins on 02/22/17. I agree with the above assessment and plan of care. rg Dictated by LETICIA Sarmiento for Ryan Ureña MD cc: LETICIA Sarmiento MD [facility]
[2017-02-22] MEDS: SODIUM CHLORIDE 0.9% INJ SCH (09:29)
[2017-02-22] MEDS: FOLIC ACID PO SCH (09:29)
[2017-02-22] MEDS: XIFAXAN PO SCH ×2 (09:29→21:07)
[2017-02-22] MEDS: TOPROL XL PO SCH (09:29)
[2017-02-22] MEDS: PROTONIX IV SCH (09:29)
[2017-02-22] MEDS: LACTULOSE PO SCH ×3 (09:29→16:36)
[2017-02-22] MEDS: CALTRATE 600 PO SCH ×2 (09:30→21:07)
[2017-02-22] MEDS: PREDNISONE PO SCH (09:30)
[2017-02-22] MEDS: CENTRUM SILVER PO SCH ×2 (09:30→21:07)
[2017-02-22] MEDS: VITAMIN B-1 PO SCH (09:30)
[2017-02-22] MEDS: TRENTAL PO SCH ×3 (10:13→21:07)
[2017-02-22] MEDS: ACTIGALL PO SCH ×2 (10:13→21:07)
[2017-02-22] MEDS: NS 1,000 ML IV SCH (13:19)
[2017-02-22] MEDS: LEVAQUIN 500 MG/D5W 500 MG/100 ML IVPB IV SCH (14:44)
[2017-02-22] MEDS ORDERED: ROCEPHIN 1 GM/NS 1 GM/50 ML IVPB IV SCH (16:30)
--- NOTE | 2017-02-22 16:43 | PROGRESS NOTE ---
DATE: 02/22/2017 SUBJECTIVE: The patient is resting comfortably in bed. He complains of abdominal fullness and pressure. OBJECTIVE: Vital Signs: Temperature 97 degrees, blood pressure 107/65, heart rate 86, respirations 17, and O2 saturations 98% on room air. General: This is an elderly male, lying in bed, in no acute distress. HEENT: Head is normocephalic, atraumatic. Eyes positive for scleral icterus. Heart: S1 and S2, normal. Regular rate and rhythm. Lungs: Clear to auscultation bilaterally. Abdomen: Distended. Positive bowel sounds. Positive for ascites. Extremities: No edema. No cyanosis. No calf tenderness. Neurologic: The patient is alert and oriented x3. LABORATORY DATA: White blood cell count 24, hemoglobin 13, hematocrit 38, platelets 109,000. Sodium 133, potassium 3.6, chloride 98, CO2 of 17, BUN 38, creatinine 1.6, glucose 94, magnesium 2.2. Total bilirubin 44.6. AST 151, ALT 162, alkaline phosphatase 153, albumin 3. ASSESSMENT AND PLAN: 1. Alcoholic hepatitis. The patient's bilirubin is elevated again today Continue on prednisone and pentoxifylline. Gastrointestinal is following. 2. Ascites. We will defer to the occupational health professional regarding a paracentesis. 3. Liver cirrhosis secondary to chronic alcoholic liver disease. Aware. 4. Coagulopathy. Stable. The patient received vitamin K yesterday. 5. Leukocytosis. The patient's white count is higher today. Again, the patient is on steroids. Given that the patient has ascites, we will start cefotaxime. We will continue to monitor this closely. 6. Thrombocytopenia. Stable. 7. Acute kidney injury. Stable. We will continue to monitor this closely. 8. Metabolic acidosis. Monitor. cc: Sarai Perez MD MTDD
[2017-02-22] MEDS: PHENERGAN IV PRN (18:28)
[2017-02-22] MEDS: SODIUM CHLORIDE 0.9% INJ PRN (18:28)
[2017-02-22] MEDS: DESYREL PO PRN (21:06)
[2017-02-22] MEDS: MELATONIN PO SCH (21:07)
[2017-02-23 07:19] LABS: INR 1.49; PROTIME 16.1 Seconds (9.2-11.7)
[2017-02-23 07:29] LABS: BASO% 0.1 % (0.0-0.8); HEMATOCRIT 37.5 % (42.0-52.0); IMM GRAN# 0.27 X1000 (0.0-0.04); IMM GRAN% 1.1 % (0.0-0.5); LYMPH# 0.93 X1000 (1.2-3.4); LYMPH% 3.9 % (20.5-51.1); MANUAL DIFF NEEDED? YES; MCH 35.5 PG (27-31); MCHC 34.7 g/dL (33-37); MCV 102.5 FL (81-99); MONO# 1.04 X1000 (0.11-0.59); MONO% 4.4 % (1.7-9.3); MPV 12.5 FL (7.4-10.4); NEUT% 90.5 % (42.2-75.2); PLT 104 X1000 (130-400); RBC 3.66 XMIL (4.7-6.1)
[2017-02-23 07:37] LABS: BANDS 4 % (0-1); LYMPHS 12 % (21-51); MONO 2 % (1-9)
[2017-02-23 07:42] LABS: ALBUMIN 2.8 g/dL (3.5-5.0); CALCIUM 8.4 mg/dL (8.8-10.2); MAGNESIUM 2.2 mg/dL (1.5-2.7); POTASSIUM 3.6 mmol/L (3.5-5.1); TOTAL PROTEIN 4.1 g/dL (6.3-8.3)
[2017-02-23 07:43] LABS: TOTAL BILIRUBIN 41.35 mg/dL (0.20-1.00)
[2017-02-23] MEDS: CALTRATE 600 PO SCH ×2 (08:27→20:35)
[2017-02-23] MEDS: TOPROL XL PO SCH (08:27)
[2017-02-23] MEDS: XIFAXAN PO SCH ×2 (08:27→20:35)
[2017-02-23] MEDS: FOLIC ACID PO SCH (08:27)
[2017-02-23] MEDS: SODIUM CHLORIDE 0.9% INJ SCH ×2 (08:27→20:36)
[2017-02-23] MEDS: VITAMIN B-1 PO SCH (08:27)
[2017-02-23] MEDS: PROTONIX IV SCH ×2 (08:27→20:35)
[2017-02-23] MEDS: CENTRUM SILVER PO SCH ×2 (08:27→20:35)
[2017-02-23] MEDS: PREDNISONE PO SCH (08:27)
[2017-02-23] MEDS: ACTIGALL PO SCH ×2 (08:28→20:35)
[2017-02-23] MEDS: TRENTAL PO SCH ×3 (08:28→20:35)
[2017-02-23] MEDS: LACTULOSE PO SCH ×3 (08:28→20:34)
[2017-02-23] MEDS ORDERED: ROCEPHIN 1 GM/NS 1 GM/50 ML IVPB IV SCH (09:00)
--- NOTE | 2017-02-23 13:15 | PROGRESS NOTE ---
DATE: 02/23/2017 TIME SEEN: 0755. SUBJECTIVE: Mr. Ji is resting quietly in bed. He states that he is feeling well. He slept all the way through the night. He denies chest pain or increased work of breathing. OBJECTIVE: Vital signs: Temperature 98.1, blood pressure 104/55, heart rate 90 , respirations 16. He is on room air. Last recorded saturation 99%. He has had 810 in. He has had zero recorded out, though patient states he has been voiding adequate amounts. LABS: Sodium 136, potassium 3.6, chloride 101, CO2 is 19, BUN 41, creatinine 1.6, glucose 95, anion gap 16, calcium 8.4, magnesium 2.2, albumin 2.8. White count 23.61, hemoglobin 13, hematocrit 37.5 with a platelet count of 104. He has a pro time of 15.1 with an INR of 1.49. PHYSICAL EXAMINATION: General: This is a 71-year-old white male. He appears in no acute distress. Skin: Warm and dry. HEENT: Normocephalic, atraumatic. Conjunctiva is pale. He has icteric sclerae. Pupils are equal and reactive to light. He remains on room air. Equal excursion. Lungs: Clear. Cardiovascular: Regular rate and rhythm. He is without murmur or gallop. Abdomen: Large distended, positive ascites, tight. Hypo bowel sounds noted. Genitourinary: Not inspected. Adequate void. Requested to keep an accurate I and O. Extremities: Has trace pretibial edema. Dressing to the left elbow. Multiple ecchymoses to the upper extremities. No clubbing or cyanosis. Neurological: Alert and oriented x3. ASSESSMENT AND PLAN: 1. Acute kidney injury. The patient's creatinine has continued to improve. At this point, it has stabilized in the last 48 hours. Adequate urine out. Requested that he keep track of this. No indications for intervention at this time. Requested that he monitor the fluid restriction at 1.5 L in 24 hours, watch salt intake. 2. Electrolytes and acid-base balance. These remain stable. 3. Anemia. This is at target. 4. Acute hepatitis with jaundice and positive ascites. The patient states that he will possibly have a paracentesis today. Otherwise, primary care is following. I would like to thank you for allowing us to follow with this patient. Patient seen, data reviewed, discussed with Lily oCllins on 02/23/17. I agree with the above assessment and plan of care. rg Dictated by LETICIA Sarmiento for Ryan Ureña MD cc: LETICIA Sarmiento MD [facility]
[2017-02-23] MEDS: LEVAQUIN 500 MG/D5W 500 MG/100 ML IVPB IV SCH (14:25)
--- NOTE | 2017-02-23 14:33 | PROGRESS NOTE ---
DATE: 02/23/2017 SUBJECTIVE: Patient resting in bed. He complains of early satiety and feeling full, bloated and lack of appetite. Denies any vomiting. He does complain of nausea. He denies any blood in the stools. Denies any fever, rigors, chills. OBJECTIVE: Vital signs: Temperature 98.1 degrees, pulse of 90, respiratory rate of 17, blood pressure 104/55, saturating 100% on room air. General: Moderately nourished , lying in bed, in no acute. HEENT: Icteric sclera. Icteric skin. Pale conjunctivae. Neck: Is supple. Abdomen: Is soft, protuberant, questionable ascites. Bowel sounds are present. No guarding. No rebound. Extremities: No cyanosis, clubbing. Bilateral mild lower extremity noted. Neurologic: He is alert and awake. Oriented. LABS: His hemoglobin and hematocrit is 13 and 37.5, white count of 23.6, platelet count of 104,000. MCV of 102.5. INR 1.49, PT of 16.1. Sodium 130, potassium 3.6, chloride 101, BUN of 41, creatinine 1.6, glucose of 95. Calcium is 8.4, magnesium 2.2. Total bilirubin is 41.35. AST 157, ALT 163, alkaline phosphatase 527, protein 4.1, albumin of 2.8. IMPRESSION/PLAN: 1. Alcoholic hepatitis. We will continue prednisone. We added ursodiol 300 mg p.o. b.i.d. 2 days ago. Follow liver enzymes, the liver function. 2. Coagulopathy. Will continue to watch the INR. If it goes above 1.5 we will give another vitamin K. 3. Thrombocytopenia, slight improvement is noted. 4. Ascites. We will continue to follow and if the abdomen gets tighter we may do ultrasound- guided paracentesis. 5. Malnutrition. Will start patient on Ensure 1 can p.o. 4 times daily. 6. Leukocytosis. He continues on cefotaxime empirically. Next time we do the ascitic tap I will again obtain the fluid studies to evaluate for spontaneous bacterial peritonitis. He also continues on steroids which can cause leukocytosis. 7. Acute kidney injury. Continue to follow. 8. GI prophylaxis. PPIs and bowel regimen with lactulose. 9. We will keep him on multivitamin 1 capsule p.o. b.i.d. 10. Insomnia. We will keep him on melatonin. 11. Patient will continue on rifaximin. 12. We will continue to follow liver enzymes. The above plan of care was discussed with the patient and all questions answered. cc: MD Lit Mcgregor MD Reginald D. Gladish, MD MTDD
--- NOTE | 2017-02-23 16:09 | PROGRESS NOTE ---
DATE: 02/18/2017 SUBJECTIVE: Has no specific complaints. He looks drowsy and not feeling well. OBJECTIVE: Vital Signs: Blood pressure 110/62, heart rate 62, respiratory rate 16, temperature 98.3 degrees. HEENT: Marked scleral icterus. Conjunctival pallor present. Neck: Supple. Heart: Normal first and second heart sounds. Lungs: Clear. Abdomen: Soft. Bowel sounds are present. He has shifting dullness however he had fluid tapped so he says that it feels better. Extremities: No clubbing or cyanosis. Mild pedal edema. Neurological: Patient has weakness in the lower extremities. LABORATORY DATA: White count 11, hemoglobin and hematocrit 11 and 34, platelets 89,000. Potassium 3.3, creatinine 1.7, bilirubin 42. INR 1.48. IMPRESSION AND PLAN: 1. Acute alcoholic hepatitis on chronic liver disease and needs to continue steroids. 2. History of cirrhosis, still actively drinking until few weeks ago. 3. Severe protein calorie malnutrition. 4. Fluid overload and acute kidney injury which is being watched. Family wanted him to be in [place] for transplant however I talked with them and also talked with Dr. Cm Lucas that patient has not stopped drinking so they would probably not take him but would be glad to talk to them if he wishes. They said they will think about it and talk to me over the weekend. cc: Fernie Mcghee MD
--- NOTE | 2017-02-23 16:10 | PROGRESS NOTE ---
DATE: 02/20/2017 SUBJECTIVE: Patient is looking more alert, a little jittery and family is not there today. OBJECTIVE: Vital signs: Blood pressure 107/70, heart rate 76, respiration 18, temp 98 degrees, 96% on room air. Heart: Normal first and second heart sounds. Lungs: Are clear. Abdomen: Edema, less ascites, nontender. Bowel sounds present. Extremities: Weakness in both the lower legs. LABORATORY DATA: White count is up to 21, some of this could be steroids. Hemoglobin and hematocrit stable. Bilirubin of 45.8, AST and ALT are 144 and 145. IMPRESSION AND PLAN: 1. Acute alcoholic hepatitis on steroids. 2. Underlying chronic liver disease with ascites and decompensation. 3. Severe protein calorie malnutrition. 4. ATN. Creatinine stable at 1.5. 5. Ascites. Once he is better we probably will repeat the paracentesis prior to discharge. In general he is still critical at his bilirubin with total however is only more than 10. We will watch him closely. -9 cc: Fernie Mcghee MD
--- NOTE | 2017-02-23 16:10 | PROGRESS NOTE ---
DATE: 02/19/2017 SUBJECTIVE: The patient is feeling better. No specific complaints. Family at bedside. OBJECTIVE: Vital signs: Blood pressure 99/67, heart rate 99, respiratory rate 18, temp 98.4 degrees, 96% sat on room air. Heart and lungs: Normal. Abdomen: Soft, nontender, mildly distended but better than when on admission. Bowel sounds are present. Extremities: No cyanosis, clubbing, mild edema. The patient does have weakness in both the lower extremities. LABORATORY DATA: White count 13, hematocrit 35, platelets 89,000. INR 1.5. Creatinine is down to 1.5. Bilirubin is at 44. IMPRESSION AND PLAN: 1. Alcoholic hepatitis. Currently being treated on steroids. 2. Alcoholic cirrhosis with a decompensation. He only recently has stopped drinking. Again the discussion of [place] has come and after talking to the family they said they will let him stay here until he gets a little better so we can arrange a visit with the transplant unit. 3. Severe protein calorie malnutrition. 4. Acute kidney injury which is improving. 5. Ascites. Again Dr. Lucas has long discussion along with me about transplant and the reason for staying sober for at least a few months before transplant and family seem to understand and agree to that. -8 cc: Fernie Mcghee MD
--- NOTE | 2017-02-23 16:11 | PROGRESS NOTE ---
DATE: 02/22/2017 SUBJECTIVE: He is resting quietly and he says he continues to feel better and no chest pain. No shortness of breath. OBJECTIVE: Vital Signs: Temp 97.8 degrees, blood pressure 116/59, heart rate 72, respirations 16, room air sat 99%. LABS: Potassium 3.7, BUN up to 38. Creatinine 1.6. Magnesium 2.2. Hemoglobin and hematocrit stable. INR 1.49. ASSESSMENT AND PLAN: 1. Acute alcoholic hepatitis. Currently is treated with steroids and pentoxifylline. 2. Chronic liver disease. Possibly alcoholic with cirrhosis of the liver and decompensation with ascites. 3. Electrolyte acid-base balance. 4. Anemia. 5. Leukocytosis. Renal has been consulted. Nephrology has been consulted to assist with electrolyte imbalance. We will continue to treat. Clinically he is doing better. PT is helping him to get some strength in the lower extremities. We will continue to follow. -3 cc: Fernie Mcghee MD
[2017-02-23] MEDS ORDERED: CLAFORAN 2 GM in NS 100 ML IV SCH (16:15)
--- NOTE | 2017-02-23 16:51 | PROGRESS NOTE ---
DATE: 02/18/2017 SUBJECTIVE: He has no specific complaints. He looks drowsy and not feeling well. OBJECTIVE: Vital Signs: Blood pressure 110/62, heart rate 62, respiratory rate 16, temperature 98.3 degrees. HEENT: Marked scleral icterus. Conjunctival pallor present. Neck: Supple. Heart: Normal first and second heart sounds. Lungs: Clear. Abdomen: Soft. Bowel sounds are present. He has shifting dullness, however he had fluid tapped so he says that feels better. Extremities: No clubbing or cyanosis. Mild pedal edema. Neurological: Patient has weakness in the lower extremities. LABORATORY DATA: White count 11, hemoglobin and hematocrit 11 and 34, platelets 89,000, potassium 3.3, creatinine 1.7, bilirubin 42, INR 1.48. IMPRESSION AND PLAN: 1. Acute alcoholic hepatitis on chronic liver disease. Needs to continue steroids. 2. History of cirrhosis. Still actively drinking until a few weeks ago. 3. Severe protein calorie malnutrition. 4. Fluid overload and acute kidney injury which is being watched. Family wanted him to be at [place] for a transplant. However, I talked with them and also talked with Dr. Rosalio Lucas that the patient has not stopped drinking so they would probably not take him, but will be glad to talk to them if he wishes. They said they will think about it and talk to me over the weekend. cc: Fernie Mcghee MD
--- NOTE | 2017-02-23 16:53 | PROGRESS NOTE ---
DATE: 02/20/2017 SUBJECTIVE: Patient is looking more alert, a little jittery. Family is not there today. OBJECTIVE: Vital signs: Blood pressure 107/70, heart rate 76, respiration 18, temperature 98.0 degrees, 96% on room air. Heart: Normal first and second heart sounds. Lungs: Clear. Abdomen: Minimal ascites. Nontender. Bowel sounds present. Extremities: Weakness in both the lower legs. LABORATORY DATA: White count is up to 21. Some of it could be steroids. Hemoglobin and hematocrit stable. Bilirubin of 45.8, AST and ALT are 144 and 145. IMPRESSION AND PLAN: 1. Acute alcoholic hepatitis, on steroids. 2. Underlying chronic liver disease with ascites and decompensation. 3. Severe protein calorie malnutrition. 4. Acute tubular necrosis. Creatinine stable at 1.5. 5. Ascites. Once he is better we probably will repeat the paracentesis prior to discharge. In general, he is still critical at his bilirubin with the total, however, is only more than 10. We will watch him closely. -0 cc: Fernie Mcghee MD
--- NOTE | 2017-02-23 16:53 | PROGRESS NOTE ---
DATE: 02/19/2017 SUBJECTIVE: The patient is feeling better. No specific complaints. Family at bedside. OBJECTIVE: Vital signs: Blood pressure 99/67, heart rate 99, respiratory rate 18, temperature 98.4 degrees, 96% saturations on room air. Heart and Lungs: Normal. Abdomen: Soft, nontender, mildly distended but better than when on admission. Bowel sounds are present. Extremities: No cyanosis, clubbing. Mild edema. The patient does have weakness in both the lower extremities. LABORATORY DATA: White count 13, hematocrit 35, platelets 89,000, INR 1.5. Creatinine is down to 1.5. Bilirubin is at 44. IMPRESSION AND PLAN: 1. Alcoholic hepatitis. Currently being treated on steroids. 2. Alcoholic cirrhosis with a decompensation. He only recently has stopped drinking. Again the discussion of [place] has come and after talking to the family they said they will let him stay here until he gets a little better so we can arrange a visit with transplant unit. 3. Severe protein calorie malnutrition. 4. Acute kidney injury which is improving. 5. Ascites. Again Dr. Lucas has had long discussion along with me about transplant and the reason for staying sober for at least a few months before transplant, and family seem to understand and agree to that. -3 cc: Fernie Mcghee MD
--- NOTE | 2017-02-23 16:54 | PROGRESS NOTE ---
DATE: 02/22/2017 SUBJECTIVE: He is resting quietly and he says he continues to feel better. Had no chest pain, no shortness of breath. OBJECTIVE: Vital Signs: Temperature 97.8 degrees, blood pressure 116/59, heart rate 72, respiration 16, room air saturations 99%. LABS: Potassium 3.7, BUN up to 38, creatinine 1.6, magnesium 2.2. Hemoglobin and hematocrit stable. INR 1.49. ASSESSMENT AND PLAN: 1. Acute alcoholic hepatitis. Currently is treated with steroids and pentoxifylline. 2. Chronic liver disease. Possibly alcoholic along with cirrhosis of the liver and has decompensation with ascites. 3. Electrolyte acid-base balance. 4. Anemia. 5. Leukocytosis. Renal has been consulted. Nephrology has been consulted to assist with electrolyte imbalance. We will continue to treat. Clinically he is doing better. Physical Therapy is helping him to get some strength in the lower extremities. We will continue to follow. -2 cc: Fernie Mcghee MD
[2017-02-23] MEDS: NS 1,000 ML IV SCH (16:58)
[2017-02-23] MEDS: MAALOX PLUS LIQUID PO PRN (17:16)
--- NOTE | 2017-02-23 18:40 | PROGRESS NOTE ---
DATE: 02/23/2017 SUBJECTIVE: The patient is resting comfortably in bed. He has no complaints today. OBJECTIVE: Vital Signs: Temperature 97.6, blood pressure 116/67, heart rate 71 , respirations 17, O2 saturations 99% on room air. General: This is a chronically ill-appearing, elderly male, lying in bed, in no acute distress. Head: Normocephalic, atraumatic. Heart: S1, S2. Normal. Regular rate and rhythm. Lungs: Clear to auscultation bilaterally. No wheezing, no rales. No rhonchi. Abdomen: Positive bowel sounds. Soft, nontender, nondistended. Positive for ascites. Extremities: Trace edema. No cyanosis. No calf tenderness. Neurologic: The patient is alert and oriented x3. LABS: White blood cell count 23, hemoglobin 13, hematocrit 37, platelets 104. INR 1.49. Sodium 136, potassium 3.6, chloride 101, CO2 of 19, BUN 41, creatinine 1.6, glucose 106. AST 157, ALT 163, alkaline phosphatase 527. Total bilirubin 41. ASSESSMENT AND PLAN: 1. Alcoholic hepatitis. Continue on prednisone and Pentoxifylline. Further management as per the die maker trim. 2. Ascites. We will continue to monitor and defer to the die maker trim regarding paracentesis. Continue on Rocephin for spontaneous bacterial peritonitis ( SBP) prophylaxis. 3. Liver cirrhosis secondary to chronic alcoholic liver disease. Aware. The patient's bilirubin is down to 41 today. We will continue to monitor this closely. 4. Coagulopathy. Stable. 5. Thrombocytopenia. Stable. 6. Leukocytosis. Slightly improved today. Continue on Rocephin. 7. Acute kidney injury. Stable. 8. Continue with physical therapy. cc: Sarai Perez MD [facility] CENTERSilvio
[2017-02-23] MEDS: MELATONIN PO SCH (20:35)
[2017-02-23] MEDS: ROCEPHIN 1 GM/NS 1 GM/50 ML IVPB IV SCH (20:35)
[2017-02-23] MEDS: PHENERGAN IV PRN (20:40)
[2017-02-24 06:43] LABS: BASO% 0.1 % (0.0-0.8); EOS# 0.01 X1000 (0.0-0.7); HEMATOCRIT 38.3 % (42.0-52.0); HEMOGLOBIN 13.4 g/dL (14.0-18.0); IMM GRAN# 0.31 X1000 (0.0-0.04); IMM GRAN% 1.3 % (0.0-0.5); LYMPH# 0.77 X1000 (1.2-3.4); LYMPH% 3.3 % (20.5-51.1); MANUAL DIFF NEEDED? NO; MCH 35.9 PG (27-31); MCV 102.7 FL (81-99); MONO# 1.04 X1000 (0.11-0.59); MONO% 4.4 % (1.7-9.3); MPV 12.2 FL (7.4-10.4); NEUT% 90.9 % (42.2-75.2); PLT 107 X1000 (130-400); RBC 3.73 XMIL (4.7-6.1)
[2017-02-24 06:48] LABS: INR 1.61; PROTIME 17.4 Seconds (9.2-11.7)
[2017-02-24 06:55] LABS: ALBUMIN 2.8 g/dL (3.5-5.0); CALCIUM 8.2 mg/dL (8.8-10.2); MAGNESIUM 2.4 mg/dL (1.5-2.7); POTASSIUM 3.5 mmol/L (3.5-5.1); TOTAL PROTEIN 3.9 g/dL (6.3-8.3)
[2017-02-24 07:05] LABS: TOTAL BILIRUBIN 41.28 mg/dL (0.20-1.00)
--- NOTE | 2017-02-24 09:11 | PROGRESS NOTE ---
DATE: 02/24/2017 SUBJECTIVE: Mr. Ji is resting quietly in bed. He states that he is feeling well. He does complain of being uncomfortably hot secondary to air conditioning not working in the hospital at this time, but does state that he is feeling a little bit better. MOST RECENT VITAL SIGNS: Temperature 97.5 degrees, blood pressure 116/65, heart rate 104, respirations are 16. He is on room air. Last recorded saturation is 99%. He has had 916 in. Again, this is the third day in a row that he has not had anything recorded, though the patient states that he is voiding. We have requested that he void into the urinal, and have given it to him at his bedside, and requested that he call the nurses for correct intake and output. LABORATORY DATA: His sodium is 139, potassium 3.5, chloride is 103, CO2 of 19, BUN 43, creatinine 1.7, glucose 102, anion gap is 17, calcium 8.2. Magnesium 2.4. Albumin is 2.8 , his total bilirubin is 41.28, AST of 148, ALT 167. White count 23.52, hemoglobin 13.4, hematocrit 38.3, platelet count 107,000. His PT is 17.4 with an INR 1.61. OBJECTIVE: General: This is a 71-year-old white male. He appears in no acute distress, though he does appear chronically ill. Skin: Warm and dry. HEENT: Normocephalic, atraumatic. Conjunctivae pale. He has icteric sclerae. Pupils are equal and reactive to light. He remains on room air. Equal excursion. Abdomen: Soft, nontender. Positive bowel sounds. Distended. Cardiovascular: Regular rate and rhythm. He is without murmur or gallop. Lungs: Clear to auscultation anteriorly. Equal excursion on room air. Genitourinary: Not inspected. The patient has been voiding. We have again instructed the patient to keep track of his intake and output. Extremities: He has no edema, no clubbing or cyanosis. Integumentary : The patient has different stages of healing of ecchymoses to the upper extremities and lower extremities. Neurological: He is alert and oriented x3. ASSESSMENT AND PLAN: 1. Acute kidney injury. The patient's creatinine has continued to remain stable , though he does appear that he is volume depleted. We will infuse 2 liters of normal saline at 250 mL an hour today. The patient states that his legs have been slightly cramping during the night. He does continue on his 1.5 liter, 24-hour fluid restriction. We will watch his salt intake. 2. Electrolytes and acid-base balance. These are stable. 3. Anemia. This is at target. 4. Acute hepatitis with jaundice and positive ascites. This is followed by the primary care team. I would to thank you for allowing us to follow with this patient. Patient seen, data reviewed, discussed with Lily Collins on 02/24/17. I agree with the above assessment and plan of care. rg Dictated by LETICIA Sarmiento for Ryan Ureña MD cc: LETICIA Sarmiento MD [facility]
[2017-02-24] MEDS: XIFAXAN PO SCH ×2 (10:06→21:39)
[2017-02-24] MEDS: CENTRUM SILVER PO SCH ×2 (10:06→21:40)
[2017-02-24] MEDS: FOLIC ACID PO SCH (10:06)
[2017-02-24] MEDS: PREDNISONE PO SCH (10:06)
[2017-02-24] MEDS: TRENTAL PO SCH ×3 (10:06→21:40)
[2017-02-24] MEDS: TOPROL XL PO SCH (10:06)
[2017-02-24] MEDS: ROCEPHIN 1 GM/NS 1 GM/50 ML IVPB IV SCH ×2 (10:07→21:40)
[2017-02-24] MEDS: VITAMIN B-1 PO SCH (10:07)
[2017-02-24] MEDS: LACTULOSE PO SCH ×3 (10:07→21:40)
[2017-02-24] MEDS: CALTRATE 600 PO SCH ×2 (10:07→21:39)
[2017-02-24] MEDS: ACTIGALL PO SCH ×2 (10:07→21:40)
[2017-02-24] MEDS: PROTONIX IV SCH ×2 (10:08→21:40)
[2017-02-24] MEDS: NS 1,000 ML IV SCH ×2 (10:21→19:53)
[2017-02-24] MEDS ORDERED: VITAMIN K 10 MG in NS 50 ML IV ONE (13:00)
--- NOTE | 2017-02-24 13:16 | PROGRESS NOTE ---
DATE: 02/24/2017 SUBJECTIVE: Patient currently resting in bed. He complains of worsening abdominal distention. He has a lack of appetite. He denies any fevers, rigors, chills. He does complain of nausea but denies any vomiting or vomiting blood. Denies any history of passing blood in the stools. OBJECTIVE: Vital signs: Temperature 97.5, pulse rate of 104 respiratory rate 17, blood pressure 116/60 saturating 98% on room air. General Appearance: Moderate nourished, lying in bed, in no acute distress. HEENT: Icteric sclerae and jaundice. Skin: Mild pallor. Neck: Is supple. Abdomen: Is distention noted, positive ascites. No guarding. Bowel sounds are heard. Extremities: No cyanosis, clubbing. Bilateral mild lower extremity noted and bruises noted over the upper extremities. Neurologic: He is alert, awake, oriented. LAB: His hemoglobin and hematocrit is 13.4 and 38.3, white count of 22.52, platelet count of 107,000. INR 1.6, PT of 17.4. Sodium 139, potassium 3.5, chloride 103, bicarb 99, AG 17, BUN of 42, creatinine 1.7. Glucose of 110. Calcium is 8.2. Total bilirubin is 41.28, AST 148, ALT 167, alkaline phosphatase was 551. Total protein 3.9, albumin of 2.8. IMPRESSION AND PLAN: 1. Alcoholic hepatitis. I will continue prednisone, pentoxifylline 400 mg p.o. t.i.d., Ursodiol 300mg p.o. b.i.d. and will continue to follow liver enzymes, liver function. 2. Coagulopathy. INR is 1.62 today so we will give a dose of vitamin K. 3. Ascites. Will schedule for ultrasound-guided paracentesis and do the fluid studies. 4. Thrombocytopenia slightly better. Platelets are 107,000 today. 5. Malnutrition. Will keep on Ensure 1 can p.o. 4 times a day. 6. Renal insufficiency likely pre renal. Agree with giving him a fluid bolus for now. 7. Leukocytosis. Continue cefotaxime. I will follow up the fluid studies. 8. Reflux, PPIs. 9. Bowel regimen. Lactulose. 10. Continue multivitamin 1 capsule p.o. b.i.d. 11. We him will continue on Xifaxan 550 mg p.o. b.i.d. for encephalopathy. The above plan was discussed with the patient and all questions answered. cc: MD Lit Mcgregor MD Reginald D. Gladish, MD MTDD
[2017-02-24] MEDS: PHENERGAN IV PRN ×2 (15:55→21:46)
[2017-02-24] MEDS: LEVAQUIN 500 MG/D5W 500 MG/100 ML IVPB IV SCH (16:01)
--- NOTE | 2017-02-24 16:56 | PROGRESS NOTE ---
DATE: 02/24/2017 SUBJECTIVE: The patient is resting comfortably in bed. He complains of abdominal tightness and a poor appetite. OBJECTIVE: Vital Signs: Temperature 97.9 degrees, blood pressure 119/68, heart rate 87 respirations 18, O2 saturations 97% on room air. General: This is a chronically ill-appearing, elderly male, lying in bed, in no acute distress. Head: Normocephalic, atraumatic. Heart: S1, S2. Normal. Regular rate and rhythm. Lungs: Equal air entry bilaterally. No crackles. No rales. Abdomen: Distended. Positive bowel sounds. Positive for ascites. No rebound tenderness. Extremities: Trace pedal edema. No cyanosis. No calf tenderness. Neurologic: The patient is alert and oriented x3. LABS: White blood cell count 23, hemoglobin 13, hematocrit 38, platelets 107, 000. INR 1.6. Sodium 139, potassium 3.8, chloride 103, CO2 19, BUN 43, creatinine 1.7, glucose 110. Total bilirubin 41. AST 148, AST 167, alkaline phosphatase 558. Albumin 2.8. ASSESSMENT AND PLAN: 1. Alcoholic hepatitis. Continue on prednisone and on pentoxifylline. Further management as per the dental technician. 2. Acute kidney injury. The patient's creatinine is slightly elevated today. The patient has been started on IV fluids by the patent lawyer. Will continue to monitor this closely. We will avoid nephrotoxic agents. 3. Ascites. We will continue to monitor this closely. Paracentesis planned for tomorrow. 4. Liver cirrhosis secondary to chronic alcoholic liver disease. Aware. 5. Coagulopathy. The patient will receive vitamin K today. Will continue to follow the INR closely. 6. Thrombocytopenia. Stable. 7. Leukocytosis. This is likely steroid induced. Continue on antibiotic therapy. 8. Severe protein calorie malnutrition. The patient will continue with Ensure with each meal. 9. Continue with physical therapy. cc: Sarai Perez MD MTDD
[2017-02-24] MEDS: MAALOX PLUS LIQUID PO PRN (18:44)
[2017-02-24] MEDS: MELATONIN PO SCH (21:39)
[2017-02-24] MEDS: SODIUM CHLORIDE 0.9% INJ SCH (21:40)
[2017-02-24] MEDS: SODIUM CHLORIDE 0.9% INJ PRN (21:46)
[2017-02-25] MEDS: NS 1,000 ML IV SCH (01:33)
[2017-02-25 07:01] LABS: BASO% 0.1 % (0.0-0.8); HEMOGLOBIN 13.2 g/dL (14.0-18.0); IMM GRAN# 0.28 X1000 (0.0-0.04); IMM GRAN% 1.3 % (0.0-0.5); LYMPH% 2.3 % (20.5-51.1); MANUAL DIFF NEEDED? YES; MCH 36.6 PG (27-31); MCHC 36.7 g/dL (33-37); MCV 99.7 FL (81-99); MONO# 0.77 X1000 (0.11-0.59); MONO% 3.5 % (1.7-9.3); MPV 12.5 FL (7.4-10.4); NEUT% 92.8 % (42.2-75.2); PLT 92 X1000 (130-400); RBC 3.61 XMIL (4.7-6.1)
[2017-02-25 07:06] LABS: INR 1.51; PROTIME 16.3 Seconds (9.2-11.7)
[2017-02-25 07:28] LABS: ALBUMIN 2.6 g/dL (3.5-5.0); MAGNESIUM 2.4 mg/dL (1.5-2.7); POTASSIUM 3.2 mmol/L (3.5-5.1); TOTAL PROTEIN 3.9 g/dL (6.3-8.3)
[2017-02-25 07:33] LABS: TOTAL BILIRUBIN 40.3 mg/dL (0.20-1.00)
--- NOTE | 2017-02-25 09:05 | PROGRESS NOTE ---
DATE: 02/25/2017 SUBJECTIVE: Mr. Ji has no nausea, vomiting or diarrhea. No shortness of breath. He anticipates paracentesis. OBJECTIVE: Vital Signs: Blood pressure 98/59, heart rate 83, respirations 17, afebrile. Intake 1.3 L. Output 1 L. General: No acute distress. Skin: Warm and dry. Conjunctivae are pink. Neck: Neck veins are not visible. Heart: Regular without gallops. Lungs: Have equal breath sounds. No crackles. Abdomen: Distended and soft. Bowel sounds are present. Extremities: Have 1+ edema. No clubbing or cyanosis. LABORATORY DATA: Sodium 140, potassium 3.2, chloride 105, bicarbonate 21, BUN 43, creatinine 1.6 albumin 2.6, hemoglobin 13.2. IMPRESSION: 1. Acute kidney injury secondary to liver disease. His labs have been stable. I will give albumin 50 g daily over the next 3 days and his IV fluids have been changed to keep open rate only. No other changes. 2. Electrolytes and acid-base are acceptable. cc: Ryan Ureña MD
[2017-02-25 09:16] LABS: BANDS 2 % (0-1); LYMPHS 2 % (21-51); MONO 3 % (1-9)
[2017-02-25 09:17] LABS: TARGET CELLS 1+
--- NOTE | 2017-02-25 11:58 | PROGRESS NOTE ---
DATE: 02/25/2017 SUBJECTIVE: The patient is resting comfortably in bed. The patient did not tolerate the Ensure yesterday. He had an episode of nausea with vomiting. OBJECTIVE: Vital Signs: Temperature 97 degrees, blood pressure 98/59, heart rate 83, respirations 17, O2 saturations 99% on room air. General: This is a chronically ill-appearing, elderly male, sitting at the edge of the bed. Skin: Diffuse jaundice. Eyes: Positive for scleral icterus. Heart: S1, S2 normal. Regular rate and rhythm. Lungs: Clear to auscultation bilaterally. No crackles. No rales. Abdomen: Positive bowel sounds. Soft. Distended. Positive for ascites. Extremities: +1 edema. No cyanosis. No calf tenderness. Neurologic: The patient is alert and oriented x3. LABS: White blood cell count 22, hemoglobin 13, hematocrit 36, platelets 92,000. INR 1.5. Sodium 140, potassium 3.2, chloride 105, CO2 21, BUN 43, creatinine 1.6, glucose 110, total bilirubin 40. AST 170, ALT 180, alkaline phosphatase 602. ASSESSMENT AND PLAN: 1. Alcoholic hepatitis. The bilirubin is slowly trending downward. However, the alkaline phosphatase is trending upward. We will continue on prednisone and pentoxifylline. GI is following. 2. Ascites. The patient is scheduled for a therapeutic paracentesis today. 3. Acute kidney injury. Stable. Further management as per the spray ii painter. 4. Coagulopathy. Stable. 5. Pancytopenia. Stable. 6. Thrombocytopenia. The patient's platelet count is a little bit lower today. We will continue to monitor this closely. 7. Leukocytosis. Slightly improved. We will continue to monitor this closely. 8. Severe protein calorie malnutrition. The patient is not able to tolerate the Ensure. The patient may require an alternative form of feeding. Will defer to the gis professor regarding this. 9. Continue with physical therapy. cc: Sarai Perez MD
[2017-02-25] MEDS: TRENTAL PO SCH ×3 (12:03→22:04)
[2017-02-25] MEDS: LACTULOSE PO SCH ×3 (12:03→19:48)
[2017-02-25 12:55] LABS: SPECIMEN PERITONEAL FLUID
[2017-02-25 13:12] LABS: TOTAL PROT BODY FLUID 0.8 g/dL
[2017-02-25] MEDS: ACTIGALL PO SCH ×2 (13:19→22:04)
[2017-02-25] MEDS: POTASSIUM CHLORIDE 20 MEQ/SWI 20 MEQ/100 ML IVPB IV SCH ×2 (13:19→21:50)
[2017-02-25] MEDS: ROCEPHIN 1 GM/NS 1 GM/50 ML IVPB IV SCH ×2 (13:19→21:56)
[2017-02-25] MEDS: PROTONIX IV SCH ×2 (13:19→22:12)
[2017-02-25] MEDS: CENTRUM SILVER PO SCH ×2 (13:20→22:04)
[2017-02-25] MEDS: PREDNISONE PO SCH (13:20)
[2017-02-25] MEDS: FOLIC ACID PO SCH (13:20)
[2017-02-25] MEDS: SODIUM CHLORIDE 0.9% INJ SCH (13:20)
[2017-02-25] MEDS: VITAMIN B-1 PO SCH (13:20)
[2017-02-25] MEDS: TOPROL XL PO SCH (13:20)
[2017-02-25] MEDS: XIFAXAN PO SCH ×2 (13:20→22:03)
[2017-02-25] MEDS: CALTRATE 600 PO SCH ×2 (13:20→22:04)
[2017-02-25] MEDS: ALBUMIN 25% IV SCH (13:21)
--- NOTE | 2017-02-25 13:29 | Diag Imaging Result Doc PS360 ---
EXAM: US PARACENTESIS HISTORY: therapeutic and diagnostic TECHNIQUE: Ultrasound-guided paracentesis COMMENT: The risks and benefits the procedure were discussed with the patient by Dr. Aria ren. Subsequent to sterile preparation the skin and administration 1% lidocaine to the skin and deeper soft tissues 2.7 L of isadora fluid was drained. This was sent to the laboratory. IMPRESSION: Successful ultrasound-guided paracentesis. Electronically signed by Parviz Shen 02/25/2017 1:27 PM
[2017-02-25 13:44] LABS: DIFF NEEDED? YES; WBC BF 86 /cumm
[2017-02-25 13:48] LABS: MONOS 64 %; POLYS 36 %
[2017-02-25] MEDS: PHENERGAN IV PRN (14:19)
[2017-02-25] MEDS: SODIUM CHLORIDE 0.9% INJ PRN (14:19)
--- NOTE | 2017-02-25 16:49 | PROGRESS NOTE ---
DATE: 02/25/2017 GASTROENTEROLOGY FOLLOWUP: SUBJECTIVE: Patient was resting in bed. He just came back from Paracentesis and he had 2.7 L taken out. His son was present at bedside. No fever reported. No nausea, vomiting reported. He had liquid bowel movements today. Vital signs: Temperature of 97.2 degrees, pulse rate of 8,1 respiratory rate of 17, blood pressure 109/52, saturating 100% on room air. General Appearance: Moderately built, lying in bed, currently sleeping. HEENT: Icteric sclerae. Mild pallor. Neck: Supple. Abdomen: Softer after the paracentesis. Bowel sounds are present. No guarding. No rebound. Extremities: No cyanosis, clubbing in bilateral lower extremities. Neurologic: He is currently sleeping. LABS: Hemoglobin and hematocrit 13.2 and 36. Bicarb 22.2. Platelet count of 92,000. MCV of 99.7. INR of 1.5, PT of 16.3. Sodium 140, potassium 3.2, chloride 105, bicarb 21, anion gap of 14, BUN of 41.6, glucose 110, calcium is 8, magnesium 2.4. Total bilirubin is 14.30. AST 170, ALT 180, total protein 6, bilirubin 3.9, albumin of 2.6. Peritoneal fluid studies showing white cells of 86, polymorphonuclear is 36%, albumin of 0.7, and SAAG is more than 1.1, suggesting portal hypertension and cirrhosis. IMPRESSION/PLAN: 1. Alcoholic hepatitis in the setting of chronic alcoholic liver disease, cirrhosis, portal hypertension cirrhosis, and ascites. We will continue with supportive treatment. Continue on prednisone, pentoxifylline, and ursodiol. 2. Ascites has been drained. We will follow up with the microbiology studies that are currently pending. 3. Acute kidney injury per the Nephrology Department. 4. Coagulopathy, is currently stable. 5. Thrombocytopenia. We will continue to watch for now. 6. Leukocytosis. He is on antibiotics prophylactically, and could be secondary to steroids. 7. Protein caloric malnutrition. The patient has poor oral intake. We will continue to encourage him. He is not a candidate for any PEG tube placement because of ascites. 8. The patient is in chronic liver failure secondary to alcoholic liver disease. I discussed that with the patient's family at bedside. All questions were answered. cc: MD Sarai Mcgregor MD [facility]
[2017-02-25] MEDS: LEVAQUIN 500 MG/D5W 500 MG/100 ML IVPB IV SCH (19:47)
[2017-02-25] MEDS: MELATONIN PO SCH (22:04)
[2017-02-26] MEDS: PHENERGAN IV PRN ×4 (03:26→22:40)
[2017-02-26] MEDS: NS 1,000 ML IV SCH (03:44)
--- NOTE | 2017-02-26 07:15 | Diag Imaging Result Doc PS360 ---
EXAM: CHEST-PORTABLE HISTORY: dyspnea TECHNIQUE: AP portable at 0500 COMMENT: There is atelectasis versus fibrosis in the right base which has not changed since 02/15/2017. Otherwise has been no significant change. IMPRESSION: Stable chest. Electronically signed by Parviz Shen 02/26/2017 7:13 AM
[2017-02-26 07:28] LABS: BASO% 0.2 % (0.0-0.8); HEMOGLOBIN 12.7 g/dL (14.0-18.0); IMM GRAN# 0.18 X1000 (0.0-0.04); LYMPH# 0.47 X1000 (1.2-3.4); LYMPH% 2.7 % (20.5-51.1); MANUAL DIFF NEEDED? NO; MCHC 35.3 g/dL (33-37); MONO# 0.48 X1000 (0.11-0.59); MONO% 2.8 % (1.7-9.3); MPV 12.4 FL (7.4-10.4); NEUT% 93.3 % (42.2-75.2); PLT 83 X1000 (130-400); RBC 3.53 XMIL (4.7-6.1)
[2017-02-26 07:32] LABS: INR 1.65; PROTIME 17.9 Seconds (9.2-11.7)
[2017-02-26 07:55] LABS: MAGNESIUM 2.5 mg/dL (1.5-2.7)
[2017-02-26 08:07] LABS: CALCIUM 8.3 mg/dL (8.8-10.2); POTASSIUM 3.2 mmol/L (3.5-5.1); TOTAL PROTEIN 3.7 g/dL (6.3-8.3)
[2017-02-26] MEDS ORDERED: KLOR-CON PO ONE (08:21)
[2017-02-26] MEDS: LACTULOSE PO SCH ×3 (08:31→19:02)
[2017-02-26 08:32] LABS: TOTAL BILIRUBIN 40.91 mg/dL (0.20-1.00)
[2017-02-26] MEDS: CALTRATE 600 PO SCH ×2 (08:33→22:46)
[2017-02-26] MEDS: PREDNISONE PO SCH (08:33)
[2017-02-26] MEDS: TOPROL XL PO SCH (08:33)
[2017-02-26] MEDS: CENTRUM SILVER PO SCH ×2 (08:33→22:46)
[2017-02-26] MEDS: TRENTAL PO SCH ×3 (08:33→22:45)
[2017-02-26] MEDS: VITAMIN B-1 PO SCH (08:33)
[2017-02-26] MEDS: XIFAXAN PO SCH ×2 (08:33→22:46)
[2017-02-26] MEDS: ACTIGALL PO SCH ×2 (08:33→22:46)
[2017-02-26] MEDS: FOLIC ACID PO SCH (08:33)
[2017-02-26] MEDS: PROTONIX IV SCH ×2 (08:34→22:47)
[2017-02-26] MEDS: SODIUM CHLORIDE 0.9% INJ SCH ×2 (08:34→22:47)
[2017-02-26] MEDS: ROCEPHIN 1 GM/NS 1 GM/50 ML IVPB IV SCH ×2 (08:35→22:47)
[2017-02-26] MEDS: ALBUMIN 25% IV SCH (08:49)
[2017-02-26] MEDS ORDERED: VITAMIN K SUBQ ONE (09:19)
[2017-02-26] MEDS: SODIUM CHLORIDE 0.9% INJ PRN ×2 (09:20→15:46)
[2017-02-26] MEDS: LEVAQUIN 500 MG/D5W 500 MG/100 ML IVPB IV SCH (15:46)
--- NOTE | 2017-02-26 18:29 | PROGRESS NOTE ---
DATE: 02/26/2017 SUBJECTIVE: The patient is resting comfortably. He does have some drainage coming from the puncture site from his paracentesis from yesterday. The patient continues to have a very poor appetite and is not eating very much. OBJECTIVE: Vital Signs: Temperature 97.2 degrees, blood pressure 97/58, heart rate 77, respirations 15, O2 saturations 96% on room air. General: This is a chronically ill-appearing, elderly male, lying in bed, in no acute distress. Skin: No rash, no lesions. Positive for jaundice. Eyes: Positive for scleral icterus. Heart: S1, S2 normal. Regular rate and rhythm. Lungs: Equal air entry bilaterally. Clear to auscultation. Abdomen: Positive bowel sounds. Soft, nontender. The patient does have peritoneal fluid leaking from the paracentesis puncture site. Extremities: Trace pedal edema. No cyanosis. No calf tenderness. Neurologic: The patient is alert and oriented x3. LABS: White blood cell count 17, hemoglobin 12, hematocrit 36, platelets 83, 000. INR 1.6. Sodium 137, potassium 3.2, chloride 105, CO2 17, BUN 42, creatinine 1.6, glucose 128, total bilirubin 40, AST 149, ALT 155, alkaline phosphatase 500. ASSESSMENT AND PLAN: 1. Alcoholic hepatitis. Unchanged. Continue on prednisone and pentoxifylline. Gastroenterology is following. 2. Ascites status post paracentesis. The patient had an ultrasound-guided paracentesis done on February 25, at which time 2.7 L of peritoneal fluid was removed. The patient is currently on a daily albumin infusion. 3. Acute kidney injury. Stable. 4. Liver cirrhosis secondary to chronic alcoholic liver disease. Aware. 5. Coagulopathy. We will give the patient a dose of vitamin K today. 6. Thrombocytopenia. The patient's platelet count is a little bit lower today. We will continue to monitor this closely. The patient does not have any active bleeding at this time. 7. Leukocytosis. Slowly improving. Continue on IV Rocephin. 8. Severe protein calorie malnutrition. The patient is not eating. Discussed with Dr. Irvin and we will initiate tube feeds today to improve the patient's nutritional status. We will also consult the dietitian for assistance with titrating the patient's tube feeds. cc: MD ABDI Welch
--- NOTE | 2017-02-26 18:39 | PROGRESS NOTE ---
DATE: 02/26/2017 SUBJECTIVE: The patient states that he feels worse today. He feels like his health is declining and he is worried. He denies chest pain but notes mild shortness of breath. He denies nausea, vomiting, and abdominal pain. He continues to have liquid bowel movements. He is status post paracentesis on 02/25/2017. The family is very upset because the paracentesis site is draining copious amounts of clear fluid. OBJECTIVE: Vital Signs: On exam, he is a ill-appearing but in no acute distress. He is resting comfortably in the bed. Vital Signs: His blood pressure is 89/63, pulse 72, respiration 16, temperature was 97.4 degrees. HEENT: Notable for jaundice. He has temporal muscle wasting. His oropharyngeal mucosal membranes are dry. Pulmonary exam: His lungs are clear anteriorly. There is decreased breath sounds in the posterior aspect bilaterally. Cardiovascular exam: He has regular rate and rhythm with no gallops or rubs. Abdominal exam: Reveals normoactive bowel sounds. The abdomen is soft, but remains slightly distended consistent with the history of ascites. He does have copious amounts of clear yellow drainage from his right flank pain at the site of his paracentesis. Extremities: Bilaterally are negative for cyanosis, clubbing, or edema. OBJECTIVE DATA: Reveals a hemoglobin of 12.7, with hematocrit of 36.0, and a white count of 17.29. His platelet count is 83,000. His PT is 17.9, with an INR of 1.65. Sodium is 137, potassium 3.2, chloride 105, CO2 17, BUN 42, creatinine 1.6, with a glucose of 95. Calcium is 8.3, phosphorus 3.0, magnesium 2.5, total bilirubin 40.91, AST 149, ALT 155, alkaline phosphatase 500, total protein 3.7, albumin 3.0. On his peritoneal fluid, he has 86 white blood cell count, with a serum albumin of 2.6, and ascitic fluid is 0.7, giving him a SAAG greater than 1.1 consistent with ascites secondary to cirrhosis. His AFB stain was unremarkable. RECOMMENDATION: 1. With regard to the alcoholic hepatitis in the setting of chronic liver disease, cirrhosis, portal hypertension, and ascites, please continue current management. He remains on prednisone, pentoxifylline and Ursodiol. With regard to his ascites, the fluid has been drained and is consistent with alcohol liver disease. He continues to drain from the paracentesis site. I will place an ostomy bag over the drainage and consult Dr. Vitaliy Muhammad for further evaluation. 2. For his protein calorie malnutrition, the patient has had less than 300 calories per mouth for the last several days. I recommend placing a Dobbhoff tube for tube feedings with an elemental formula such as Vital AF. His fluid status is somewhat precarious , therefore, I would use total parenteral nutrition as a last resort. Please note, he refused the NG tube but then reconsidered after a lengthy discussion. 3. Additional recommendations to follow based on his clinical course. Dr. Forbes will return on Tuesday to assume care. cc: MD Sarai Vidal MD Manish Arora, MD David Francis, MD Reginald D. Gladish, MD MTDD
--- NOTE | 2017-02-26 19:20 | Diag Imaging Result Doc PS360 ---
EXAM: CHEST/ABD TUBE PLACEMENT HISTORY: feeding tube placement verification TECHNIQUE: AP portable chest and abdomen for feeding tube placement COMMENT: The feeding tube tip is in the fundus of the stomach. The bowel gas pattern is nonspecific. The lungs are not well-expanded but considering differences in technique not changed since the previous study of this date. IMPRESSION: Feeding tube tip in stomach. Electronically signed by Parviz Shen 02/26/2017 7:18 PM
[2017-02-26] MEDS: MELATONIN PO SCH (22:45)
[2017-02-27] MEDS: MAALOX PLUS LIQUID PO PRN ×2 (02:17→23:13)
[2017-02-27 06:30] LABS: INR 1.83
[2017-02-27 06:40] LABS: CALCIUM 8.3 mg/dL (8.8-10.2); POTASSIUM 3.5 mmol/L (3.5-5.1); TOTAL PROTEIN 3.6 g/dL (6.3-8.3)
[2017-02-27 06:50] LABS: TOTAL BILIRUBIN 42.02 mg/dL (0.20-1.00)
[2017-02-27 06:52] LABS: BASO% 0.2 % (0.0-0.8); HEMATOCRIT 36.6 % (42.0-52.0); HEMOGLOBIN 12.9 g/dL (14.0-18.0); IMM GRAN# 0.24 X1000 (0.0-0.04); IMM GRAN% 1.2 % (0.0-0.5); LYMPH# 0.49 X1000 (1.2-3.4); LYMPH% 2.5 % (20.5-51.1); MANUAL DIFF NEEDED? YES; MCH 35.9 PG (27-31); MCHC 35.2 g/dL (33-37); MCV 101.9 FL (81-99); MONO# 0.62 X1000 (0.11-0.59); MONO% 3.1 % (1.7-9.3); MPV 12.5 FL (7.4-10.4); PLT 88 X1000 (130-400); RBC 3.59 XMIL (4.7-6.1)
[2017-02-27 07:58] LABS: BANDS 2 % (0-1); LYMPHS 2 % (21-51); MONO 2 % (1-9)
[2017-02-27] MEDS: SODIUM CHLORIDE 0.9% INJ PRN (08:24)
[2017-02-27] MEDS: PHENERGAN IV PRN ×2 (08:24→20:04)
[2017-02-27] MEDS: ROCEPHIN 1 GM/NS 1 GM/50 ML IVPB IV SCH ×2 (08:43→20:04)
[2017-02-27] MEDS: PROTONIX IV SCH ×3 (08:43→20:04)
[2017-02-27] MEDS: SODIUM CHLORIDE 0.9% INJ SCH (08:43)
[2017-02-27] MEDS ORDERED: VITAMIN K SUBQ ONE (09:00)
[2017-02-27] MEDS: ALBUMIN 25% IV SCH (10:09)
[2017-02-27] MEDS: TRENTAL PO SCH ×4 (11:14→20:02)
[2017-02-27] MEDS: PREDNISONE PO SCH ×2 (11:14→12:15)
[2017-02-27] MEDS: FOLIC ACID PO SCH ×2 (11:14→12:14)
[2017-02-27] MEDS: TOPROL XL PO SCH ×2 (11:14→12:15)
[2017-02-27] MEDS: VITAMIN B-1 PO SCH ×2 (11:14→12:15)
[2017-02-27] MEDS: CALTRATE 600 PO SCH ×3 (11:14→20:02)
[2017-02-27] MEDS: XIFAXAN PO SCH ×3 (11:15→20:02)
[2017-02-27] MEDS: LACTULOSE PO SCH ×4 (11:15→16:52)
[2017-02-27] MEDS: CENTRUM SILVER PO SCH ×3 (11:15→20:03)
[2017-02-27] MEDS: ACTIGALL PO SCH ×3 (11:15→20:01)
[2017-02-27 12:02] LABS: URINE CULTURE NEEDED? NO; URINE SOURCE CATH
[2017-02-27 12:07] LABS: BLOOD URINE NEGATIVE (NEGATIVE); COLOR YELLOW; GLUCOSE URINE NEGATIVE (NEGATIVE); LEUKOCYTES URINE NEGATIVE (NEGATIVE); NITRITE URINE NEGATIVE (NEGATIVE); PROTEIN URINE 30 mg/dL (NEGATIVE); SP GRAVITY URINE 1.019; TURBIDITY URINE HAZY (CLEAR); UROBILINOGEN URINE NORMAL (NORMAL)
[2017-02-27 12:08] LABS: URINE MICRO REVIEW NEEDED? YES
[2017-02-27 12:22] LABS: UR EPITHELIAL CELLS <10 /HPF (<10); URINE BACTERIA NEGATIVE /HPF; URINE RBC <10 /HPF (<10); URINE WBC <10 /HPF (<10)
[2017-02-27 12:39] LABS: BILIRUBIN URINE LARGE (NEGATIVE)
[2017-02-27 12:43] LABS: URINE CASTS NONE SEEN; URINE CRYSTALS NONE SEEN; URINE SMALL ROUND CELLS NONE SEEN
[2017-02-27] MEDS: LEVAQUIN 500 MG/D5W 500 MG/100 ML IVPB IV SCH (16:53)
--- NOTE | 2017-02-27 16:56 | PROGRESS NOTE ---
DATE: 02/27/2017 SUBJECTIVE: The patient is lethargic today and refusing his medications. OBJECTIVE: Vital Signs: Temperature 97.8 degrees, blood pressure 121/67, heart rate 93, respirations 16, O2 saturations 99% on room air. General: This is a chronically ill-appearing, elderly male, lying in bed, in no acute distress. Head: Normocephalic, atraumatic. Heart: S1, S2 normal. Regular rate and rhythm. Lungs: Equal air entry bilaterally. No crackles. No rales. Abdomen: Positive bowel sounds. Soft, nontender, nondistended. Extremities: No edema. No cyanosis. No calf tenderness. Neurologic: The patient is lethargic, but does answer questions, and is able to move all 4 extremities. He is able to stand, but with assistance. LABORATORIES: White blood cell count 19.7, hemoglobin 12.9, hematocrit 36, platelets 88,000, INR 1.8. Sodium 140, potassium 3.5, chloride 104, CO2 16, BUN 42, creatinine 1.6, glucose 126. Total bilirubin 42, AST 150, ALT 149, alkaline phosphatase 479, ammonia less than 10, albumin 3. ASSESSMENT AND PLAN: 1. Alcoholic hepatitis. Unchanged. The patient's coagulopathy is worsening, despite receiving vitamin K, which is a poor prognosis. We will continue on prednisone and [place]. 2. Ascites status post paracentesis. The patient continues to drain peritoneal fluid. We will continue to monitor this closely. 3. Decompensated alcoholic liver disease with cirrhosis. Aware. 4. Coagulopathy. We will give the patient another dose of vitamin K today. 5. Thrombocytopenia, stable. 6. Leukocytosis. The patient's white blood cell count is more elevated today. The urinalysis is negative. Continue on IV Rocephin. 7. Acute kidney injury. Stable. 8. Steroid-induced hyperglycemia. Monitor accuchecks. 9. Protein calorie malnutrition. The patient is on tube feeds. The dietitian will titrate the feeding to a goal rate. 10. Disposition. Due to the change in mental status, the patient will be moved to cardiac intensive care unit for closer monitoring. cc: MD ABDI Welch
--- NOTE | 2017-02-27 16:57 | PROGRESS NOTE ---
DATE: 02/27/2017 SUBJECTIVE: Overnight the patient was noted to be more lethargic. He was transferred to [facility] for more careful monitoring. He is status post placement of Dobbhoff feeding tube and appears to be tolerating his elemental formula. His main concern is insomnia. He is frustrated that he has been unable to sleep. He denies nausea with vomiting. He notes that his abdominal pain is slightly better. OBJECTIVE: General: On exam, he is jaundiced and ill-appearing. Vital signs: His blood pressure is 110/57, pulse of 89, respiration 20, temperature of 97.1 degrees. HEENT: Notable for worsening jaundice. His oropharyngeal mucosal membranes are moist. Pulmonary: His breath sounds are clear anteriorly. He has decreased breath sounds in the bases bilaterally posteriorly. Cardiovascular: Reveals regular rate and rhythm with no murmurs, gallops, or rubs. Abdomen: Reveals normoactive bowel sounds. The abdomen is soft but slightly distended. The paracentesis site in the right flank is continuing to drain into an ostomy bag but there appears to be slightly less drainage. Extremities: Bilaterally are negative for cyanosis, clubbing, or edema. OBJECTIVE DATA: Reveals a hemoglobin of 12.9 with hematocrit of 36.6 and white count of 19.70. He has 88,000 platelets. His PT has increased to 20.0 with an INR of 1.83. Sodium is 140, potassium 3.5, chloride 104, CO2 16, BUN 42, creatinine 1.6 with a glucose of 126. Calcium is 8.3, total bilirubin of 42.02, AST 150, ALT 149, alkaline phosphatase 479, total protein 3.6, albumin 3.0. RECOMMENDATION: 1. The patient's overall clinical course continues to slowly deteriorate. He is currently receiving maximal supportive care. I would continue with his current management. 2. Appreciate the input from Dr. Vitaliy Muhammad regarding management of the drainage from his ostomy site. Will continue supportive care. 3. For his protein calorie malnutrition, I would continue the Vital AF. Please involve the dietitian for assistance with management of his care. 4. His overall course is very worrisome. The family had requested transfer to [facility] for evaluation for liver transplant. Unfortunately, the patient only recently stopped drinking and is not a candidate for liver transplant at this time. 5. Additional recommendations to follow based on his clinical course. Dr. Forbes will return in the morning to assume care. cc: Sarai Perez MD
--- NOTE | 2017-02-27 18:56 | PROGRESS NOTE ---
DATE: 02/27/2017 SUBJECTIVE: The patient continues to have a large output of clear-yellow fluid from his paracentesis wound on the right side of his abdomen. The nurses are draining up to 200 mL/h through the ostomy bag that was placed over it. OBJECTIVE: general: He is ill-appearing, but in no acute distress. Vital signs: His vital signs are stable. gastrointestinal: Soft, protuberant. Not particularly tender. There is clear yellow fluid draining from the right-sided paracentesis tract. No evidence of infection. Skin: He is extremely jaundiced. PLAN: I was asked to see the patient to assist with controlling the drainage. I explained to him that I can place some stitches to close the hole, but this may or may not be successful as the drainage could continue to find a way to seep out, and aggressive medical and dietary intervention is obviously needed to decrease the production of this fluid, if possible. cc: Vitaliy Muhammad MD
[2017-02-27] MEDS: MELATONIN PO SCH (20:03)
[2017-02-28 05:30] LABS: INR 1.84; PROTIME 20.1 Seconds (9.2-11.7)
[2017-02-28 06:20] LABS: BASO% 0.2 % (0.0-0.8); EOS# 0.01 X1000 (0.0-0.7); EOS% 0.1 % (0.0-10.0); HEMATOCRIT 36.1 % (42.0-52.0); HEMOGLOBIN 12.7 g/dL (14.0-18.0); IMM GRAN# 0.28 X1000 (0.0-0.04); IMM GRAN% 1.6 % (0.0-0.5); LYMPH# 0.53 X1000 (1.2-3.4); MANUAL DIFF NEEDED? YES; MCH 35.6 PG (27-31); MCHC 35.2 g/dL (33-37); MCV 101.1 FL (81-99); MONO# 0.67 X1000 (0.11-0.59); MONO% 3.8 % (1.7-9.3); MPV 12.3 FL (7.4-10.4); NEUT% 91.3 % (42.2-75.2); PLT 77 X1000 (130-400); RBC 3.57 XMIL (4.7-6.1)
[2017-02-28 06:21] LABS: CALCIUM 8.5 mg/dL (8.8-10.2); POTASSIUM 3.2 mmol/L (3.5-5.1); TOTAL BILIRUBIN 42.08 mg/dL (0.20-1.00)
[2017-02-28 07:48] LABS: TOTAL PROTEIN 3.9 g/dL (6.3-8.3)
[2017-02-28 07:49] LABS: ALBUMIN 3.4 g/dL (3.5-5.0)
[2017-02-28 08:33] LABS: BANDS 6 % (0-1); LYMPHS 4 % (21-51); MONO 2 % (1-9)
--- NOTE | 2017-02-28 09:16 | PROGRESS NOTE ---
DATE: 02/28/2017 SUBJECTIVE: The patient was examined today, and his puncture site on the right abdomen has an ostomy bag around it. There is scant fluid in the bag. Per the nurses' report overnight, the bag has not any change. There has been minimal output overnight. PLAN: I would continue to use an ostomy bag as needed for some slow seepage of fluid or the ostomy bag could be removed and a Band-Aid or gauze dressing could be placed over the closure site until it dries up completely. I would leave the stitch for at least 10 days until the wound heals up and is water tight. cc: Vitaliy Muhammad MD
[2017-02-28] MEDS: XIFAXAN PO SCH ×2 (09:23→21:01)
[2017-02-28] MEDS: PROTONIX IV SCH ×2 (09:23→20:59)
[2017-02-28] MEDS: LACTULOSE PO SCH ×3 (09:23→16:59)
[2017-02-28] MEDS: CENTRUM SILVER PO SCH ×2 (09:23→21:00)
[2017-02-28] MEDS: ROCEPHIN 1 GM/NS 1 GM/50 ML IVPB IV SCH ×2 (09:24→21:16)
[2017-02-28] MEDS: CALTRATE 600 PO SCH ×2 (09:24→20:59)
[2017-02-28] MEDS: FOLIC ACID PO SCH (09:24)
[2017-02-28] MEDS: TOPROL XL PO SCH (09:24)
[2017-02-28] MEDS: PREDNISONE PO SCH (09:24)
[2017-02-28] MEDS: VITAMIN B-1 PO SCH (10:05)
[2017-02-28] MEDS: ACTIGALL PO SCH ×2 (10:05→21:00)
[2017-02-28] MEDS: TRENTAL PO SCH ×3 (10:05→21:00)
--- NOTE | 2017-02-28 10:43 | PROGRESS NOTE ---
DATE: 02/28/2017 SUBJECTIVE: Patient is resting in bed. He states he did have a thoracentesis and had several liters removed. He believes it was 3 or 4. OBJECTIVE: Vital Signs: Temperature 97.6 degrees, pulse 109, respiratory rate 14, blood pressure 98/52. Intake 790 mL. Output 2.3 L. PHYSICAL EXAMINATION: General: This is an elderly gentleman, resting in bed. He is in no acute distress. He is awake and alert. HEENT: Normocephalic, atraumatic. He has icteric sclerae. Conjunctivae are pale. Oral mucosa moist. Neck: Thick, supple. No JVD. Cardiovascular: Regular rate and rhythm. There is no murmur or gallop appreciated. Pulmonary: Equal excursion. He is clear bilaterally. Abdomen: Distended, soft. Positive bowel sounds. : Not inspected. Extremities: There is 1+ pretibial edema. No clubbing, cyanosis. Integumentary: He is grossly jaundiced. Warm and dry otherwise. LAB DATA: WBC of 17.4, hemoglobin 12.7, hematocrit 36.1, platelet count of 77, 000. Sodium 140, potassium 3.2, CO2 16, BUN 52, creatinine 1.8 (1.6, 1.7, 1.6). ASSESSMENT AND PLAN: 1. Acute kidney injury secondary to hepatic disease. Renal function has really been unchanged over the course of the last several days. He did receive albumin for several days prior. Continue to monitor. No adjustment otherwise. No further changes that require ongoing hospitalization from my perspective. rg 2. Electrolytes, acid-base balance. These are acceptable. 3. Fluid volume. He was actually in negative territory overnight. 4. Blood pressure is marginally low. Dictated by LETICIA Delgado for Ryan Ureña MD Patient seen, data reviewed, discussed with Polo Hernandez on 02/28/17. I agree with the above assessment and plan of care. teom cc: Ryan Ureña MD [facility]
--- NOTE | 2017-02-28 11:22 | PROGRESS NOTE ---
DATE: 02/28/2017 SUBJECTIVE: Patient is resting in bed. He denies any fevers, rigors, or chills. He thinks his appetite is improving. He denies any nausea, vomiting, or vomiting blood. He is moving his bowels. He had 1 liquid large bowel movement this morning. He denied any blood in the stools. OBJECTIVE: Vital Signs: Temperature 97.6 degrees, pulse rate of 109, respiratory rate of 14, blood pressure of 90/52, saturating 100% on room air. General Appearance: He is moderate built, moderately nourished, lying in bed, in no acute distress. HEENT: Icteric sclerae, icteric skin, and mild pallor. Neck: Supple. Abdomen: Mildly protuberant. Ostomy bag noted at the site of previous paracentesis, draining small amount of fluid. Bowel sounds are present. No guarding or rebound. Extremities: No cyanosis, clubbing, bilateral lower extremities. Bruises noted over the upper extremities. Positive anasarca. Neurologic: He is alert, awake, oriented. Labs: Hemoglobin and hematocrit are 12.7 and 36.1, white count of 17.47, platelet count of 77,000, MCV of 101.1. INR 1.84, PTT of 20.1. Sodium of 140, potassium 3.2, chloride of 107, bicarb 16, anion gap was 17, BUN of 52, creatinine 1.8, glucose of 104, calcium is 8.5. Total bilirubin is 42.08, AST 194, ALT 148, alkaline phosphatase 539. Ammonia less than 10, total protein 3.9, albumin of 3.4. IMPRESSION AND PLAN: 1. Chronic liver failure secondary to alcoholic liver disease. We will continue supportive care. Continue with ursodiol, prednisone, pentoxifylline. We will keep him on low-sodium diet, less than 2 g per 24 hours and free fluid restriction to less than 2 L per 24 hours. 2. Decreased oral intake. I encouraged the patient to improve his oral intake. Continue to take Ensure Clear 3-4 cans a day. 3. Patient is on prophylactic antibiotics with ceftriaxone and Levaquin. We will discontinue Levaquin for now. 4. Coagulopathy. He received vitamin K yesterday. 5. Altered mental status. He is on Xifaxan 550 mg by mouth twice a day and lactulose 15 mL by mouth three times a day. His ammonia is less than 10. 6. Alcoholism. He will continue on vitamin B1, multivitamin, and folic acid. 7. Gastrointestinal prophylaxis. Proton pump inhibitors twice daily. 8. Further recommendations to follow pending hospital course. I discussed the plan with the patient and family, and all questions were answered. cc: MD Sarai Mcgregor MD Jason R. Seale, MD Reginald D. Gladish, MD
[2017-02-28] MEDS ORDERED: VITAMIN K SUBQ ONE (12:36)
[2017-02-28] MEDS ORDERED: KLOR-CON PO ONE (12:41)
--- NOTE | 2017-02-28 13:43 | PROGRESS NOTE ---
DATE: 02/28/2017 SUBJECTIVE: Patient has no complaints. He is up in bed eating. OBJECTIVE: Vital signs: Blood pressure 98/47, heart rate of 80, respiratory 16, temperature 98.3 degrees, 100% on room air. Cardiovascular: Regular rate and rhythm. Pulmonary: Bilateral breath sounds. Clear to auscultation. GI: Soft, nontender, nondistended. Bowel sounds are positive. Abdomen: Distended. LABORATORY DATA: White count is down to 17, hemoglobin and hematocrit 12 and 36, platelets of 77,000. INR is 1.84 which is rising. Potassium 3.2, creatinine 1.8, his bilirubin is 42 which is the same from yesterday up from the day before. AST and ALT are 194 and 148. Ammonia is less than 10. PROBLEM LIST: 1. Alcoholic hepatitis. He is on prednisone and Trental. Again overall his prognosis is not great. He has been getting treatment with prednisone since the , that is about 12 days and treatment is usually for 30 days assuming there is not another major issue. 2. Likely cirrhosis associated with alcoholic liver disease. We are aware, monitoring. 3. Ascites. He had another paracentesis done and is stable. 4. Coagulopathy. We will continue vitamin K therapy and follow. 5. Acute kidney injury. Stable on current fluid restriction. 6. Severe protein-calorie malnutrition. We will continue to monitor. Attempted to do tube feeds but I think he took out the tube himself or it was dislodged and he is trying to eat on his own. DISPOSITION: Clinically, he appears to be doing better. He was lethargic yesterday so he was placed in the CI but his ammonia levels are actually normal and clinically today appears more awake. Overall poor prognosis I do not think is great and there is not much we can do. He is not a transplant candidate because he has not been sober for 6 months so really are in a difficult situation as far as that is concerned but we will continue to follow. cc: Cm Lucas MD
[2017-02-28] MEDS: MELATONIN PO SCH (20:59)
[2017-02-28] MEDS: PHENERGAN IV PRN (20:59)
[2017-02-28] MEDS ORDERED: ZOFRAN IV ONE (23:33)
[2017-02-28] MEDS: DILAUDID IV PRN (23:45)
[2017-03-01] MEDS: MAALOX PLUS LIQUID PO PRN ×2 (04:56→11:31)
[2017-03-01 05:43] LABS: INR 1.72; PROTIME 18.7 Seconds (9.2-11.7)
[2017-03-01 05:49] LABS: BASO% 0.1 % (0.0-0.8); EOS# 0.04 X1000 (0.0-0.7); EOS% 0.1 % (0.0-10.0); HEMATOCRIT 37.1 % (42.0-52.0); IMM GRAN# 0.61 X1000 (0.0-0.04); IMM GRAN% 2.2 % (0.0-0.5); LYMPH# 0.88 X1000 (1.2-3.4); LYMPH% 3.2 % (20.5-51.1); MANUAL DIFF NEEDED? YES; MCH 35.5 PG (27-31); MCV 101.4 FL (81-99); MONO# 0.85 X1000 (0.11-0.59); MONO% 3.1 % (1.7-9.3); MPV 13.2 FL (7.4-10.4); NEUT% 91.3 % (42.2-75.2); PLT 84 X1000 (130-400); RBC 3.66 XMIL (4.7-6.1)
[2017-03-01 05:57] LABS: ALBUMIN 2.7 g/dL (3.5-5.0); CALCIUM 8.6 mg/dL (8.8-10.2); POTASSIUM 3.8 mmol/L (3.5-5.1); TOTAL PROTEIN 3.4 g/dL (6.3-8.3)
[2017-03-01 06:07] LABS: TOTAL BILIRUBIN 41.08 mg/dL (0.20-1.00)
[2017-03-01 06:09] LABS: BANDS 12 % (0-1); LYMPHS 4 % (21-51); MONO 4 % (1-9)
[2017-03-01] MEDS: PHENERGAN IV PRN ×3 (06:28→21:45)
[2017-03-01] MEDS: CENTRUM SILVER PO SCH ×2 (08:01→22:24)
[2017-03-01] MEDS: TOPROL XL PO SCH (08:01)
[2017-03-01] MEDS: CALTRATE 600 PO SCH ×2 (08:01→22:24)
[2017-03-01] MEDS: TRENTAL PO SCH ×3 (08:01→22:25)
[2017-03-01] MEDS: PREDNISONE PO SCH (08:01)
[2017-03-01] MEDS: XIFAXAN PO SCH ×2 (08:01→22:25)
[2017-03-01] MEDS: FOLIC ACID PO SCH (08:01)
[2017-03-01] MEDS: ACTIGALL PO SCH ×2 (08:01→22:24)
[2017-03-01] MEDS: ROCEPHIN 1 GM/NS 1 GM/50 ML IVPB IV SCH ×2 (08:01→21:53)
[2017-03-01] MEDS: PROTONIX IV SCH ×2 (08:01→21:54)
[2017-03-01] MEDS: SODIUM CHLORIDE 0.9% INJ SCH ×2 (08:02→21:54)
[2017-03-01] MEDS: LACTULOSE PO SCH ×3 (08:02→17:16)
--- NOTE | 2017-03-01 08:03 | PROGRESS NOTE ---
DATE: 03/01/2017 SUBJECTIVE: He was awake. He feels very weak. He told me that he does not feel he is doing very well at all. He did sit up in a chair some yesterday. Not getting much food down. PHYSICAL EXAMINATION: Vital Signs: Temperature 97.5 degrees, pulse 89, respirations 18, blood pressure 94/47. Lungs: Clear in all lung walker. Cardiovascular Examination: Regular rhythm and rate without murmur or S3. Abdomen: Soft. Minimal ascites. Extremities: Trace edema to his feet. Is and Os: Urine output 800 mL. LABORATORY DATA: White count elevated at 27,360. He is on prednisone. Hematocrit 37, platelet count 84,000. Chemistry: Sodium 136, potassium 3.8, chloride 101, BUN 71, creatinine 2.3 which has gone up from 1.8. Transaminases, AST on the was 194 and today 167. ALT was 148 and today 160. Alkaline phosphatase 539 and today 615. Ammonia less than 10. Bilirubin 41. Blood sugars 118, 104, 110, 119. ASSESSMENT AND PLAN: 1. Chronic liver failure secondary to alcohol liver disease. Continue supportive care. Continue ursodiol, prednisone, and pentoxifylline. Keep him on a low-sodium diet, less than 2 g per 24 hours and free fluid restriction of less than 2 L in 24 hours. Encourage oral intake. 2. Poor nutrition. Encourage oral intake. Ensure 3-4 cans a day. 3. Prophylactic antibiotics with ceftriaxone and Levaquin. His Levaquin was discontinued yesterday. 4. Coagulopathy. Received vitamin K day before yesterday. 5. Altered mental status. He is on Xifaxan 550 mg twice a day. He is getting lactulose 15 mL 3 times a day. His ammonia is around 10 or less. 6. Alcoholism. Continue his thiamine, his multivitamin, and folic acid. 7. Gastrointestinal prophylaxis with proton pump inhibitor. 8. Weakness and deconditioning. Try and set him up in a chair. 9. Note serum creatinine has gone up to 2.3. Continue to follow. cc: Weston Wright MD
[2017-03-01] MEDS: VITAMIN B-1 PO SCH (09:45)
--- NOTE | 2017-03-01 13:44 | PROGRESS NOTE ---
DATE: 03/01/2017 SUBJECTIVE: He is a little less interactive today. Denies pain or nausea. OBJECTIVE: Vital Signs: Blood pressure 98/68, heart rate 83, respirations 14, afebrile. Intake 800 mL; output 2.3 L. General: On physical exam, chronically ill, no distress. Skin: Markedly jaundiced and dry with ecchymoses. Eyes: Pupils are equal. Conjunctivae are pink. Neck: Neck veins are not appreciated. Trachea is midline. Heart: Regular without murmurs or gallops. Lungs: Have equal breath sounds. No crackles or wheezes. Abdomen: Distended and soft. Bowel sounds are present. Extremities: Have 3+ edema. No clubbing or cyanosis. LABORATORY DATA: Sodium 136, potassium 3.8, chloride 101, bicarbonate 14, BUN 71, creatinine 2.3, albumin 2.7. IMPRESSION: 1. Acute kidney injury. His creatinine kevin over the last day as he was in negative fluid balance. I believe this is prerenal. Given his volume expansion, I will add albumin again for the next 3 days and observe his response. 2. Electrolytes, acceptable. 3. Acid-base: He does have a metabolic acidosis with an elevated anion gap of 21. This is likely related to his kidney disease and his liver disease. cc: Ryan Ureña MD
[2017-03-01] MEDS: LEVOPHED 8 MG in D5 1/2 NS 250 ML IV SCH (20:47)
--- NOTE | 2017-03-01 20:59 | Diag Imaging Result Doc PS360 ---
EXAM: CT ABDOMEN/PELVIS W/O CONTRAST HISTORY: abd pain, hypotension, leukocytosis TECHNIQUE: CT abdomen and pelvis without contrast. Dose reduction protocol. COMPARISON: 01/29/2017 FINDINGS: Mild increased markings in the right lung base remain. Trace pleural fluid. There is fatty infiltration of the liver. There is a small amount of fluid about the liver on the current exam. Several small stones are found within the gallbladder. No adjacent inflammation. Normal noncontrasted spleen and pancreas. Normal adrenal glands. No renal stones. No hydronephrosis. Prominent atherosclerosis. No aneurysm. The urinary bladder is decompressed with a Cooper catheter. There is a small amount of fluid within each paracolic gutter and within the pelvis. No abscess. 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 IMPRESSION: 1.Fatty infiltration of the liver. 2.Minimal abdominal and pelvic ascites, however, it has increased compared to the prior study 3.There are several tiny gallstones on the current study. 4.No abscess Electronically signed by Mau Pitts 03/01/2017 8:57 PM
[2017-03-01] MEDS: SODIUM CHLORIDE 0.9% INJ PRN (21:45)
[2017-03-01] MEDS: DILAUDID IV PRN (22:16)
[2017-03-01] MEDS: MELATONIN PO SCH (22:24)
--- NOTE | 2017-03-02 08:51 | PROGRESS NOTE ---
DATE: 03/02/2017 SUBJECTIVE: Mr. Ji was going to ICU. Blood pressure remained low. Lethargic, but he was arousable, feels pretty bad. OBJECTIVE: Vital signs: Temperature 95.9, pulse 87, respirations 13, blood pressure has gone on down in the 60s. It is presently 95/53. Lungs: Clear in all lung walker. Cardiovascular: Regular rhythm and rate without murmur or S3. Abdomen: Soft. Skin: Warm and dry. Urine output has diminished. LAB: Reviewed from yesterday, CBC, chemistry, will recheck them this morning. His creatinine was 2.3 yesterday. IMAGING: CT of pelvis and abdomen done yesterday showed fatty infiltration of the liver, minimal abdominal and pelvic ascites; however, is increased compared to prior study which was on 01/29/2017. There are several gallstones on the current study. No abscess. ASSESSMENT AND PLAN: 1. Acute kidney injury. Creatinine rising, urine output going down. Suspect in large degree prerenal, possibly he could be developing hepatorenal syndrome, as well. Will follow his electrolytes, acid-base status. He does have a metabolic acidosis and elevated anion gap. Dr. Ureña has been giving him some albumin. Blood pressure is marginal. 2. Hypotension secondary liver to dysfunction. 3. Alcoholic hepatitis, chronic liver failure. His hepatic function is also impaired with coagulopathy, decreased albumin. 4. Weakness and deconditioning. 5. Need to put an NG tube back in. He is not getting any nutrition. cc: Weston Wirght MD
[2017-03-02 08:55] LABS: HEMATOCRIT 40.6 % (42.0-52.0); HEMOGLOBIN 14.9 g/dL (14.0-18.0); MCH 36.7 PG (27-31); MCHC 36.7 g/dL (33-37); PLT 89 X1000 (130-400); RBC 4.06 XMIL (4.7-6.1)
[2017-03-02 08:58] LABS: INR 1.69; PROTIME 18.4 Seconds (9.2-11.7)
[2017-03-02 09:13] LABS: ALBUMIN 2.8 g/dL (3.5-5.0); CALCIUM 8.7 mg/dL (8.8-10.2); POTASSIUM 4.4 mmol/L (3.5-5.1)
[2017-03-02] MEDS: CALTRATE 600 PO SCH ×2 (10:17→22:25)
[2017-03-02] MEDS: ACTIGALL PO SCH ×2 (10:17→22:25)
[2017-03-02] MEDS: TRENTAL PO SCH ×3 (10:17→22:25)
[2017-03-02] MEDS: CENTRUM SILVER PO SCH ×2 (10:18→22:27)
[2017-03-02] MEDS: LACTULOSE PO SCH ×3 (10:18→17:39)
[2017-03-02] MEDS: FOLIC ACID PO SCH (10:18)
[2017-03-02] MEDS: PREDNISONE PO SCH (10:18)
[2017-03-02] MEDS: PROTONIX IV SCH ×2 (10:19→21:54)
[2017-03-02] MEDS: VITAMIN B-1 PO SCH (10:19)
[2017-03-02] MEDS ORDERED: NS 250 ML ONE (10:20)
[2017-03-02 10:22] LABS: LYMPHS 4 % (21-51); MONO 2 % (1-9)
[2017-03-02] MEDS: XIFAXAN PO SCH ×2 (10:22→22:25)
[2017-03-02] MEDS: ROCEPHIN 1 GM/NS 1 GM/50 ML IVPB IV SCH ×2 (11:29→21:55)
[2017-03-02] MEDS: LEVOPHED 8 MG in D5 1/2 NS 250 ML IV SCH (11:30)
[2017-03-02] MEDS: ALBUMIN 25% IV SCH (11:32)
--- NOTE | 2017-03-02 13:58 | Diag Imaging Result Doc PS360 ---
EXAM: CHEST-PORTABLE HISTORY: feeding tube placement TECHNIQUE: AP semiupright chest and abdomen for NG tube placement at 1345, portable COMMENT: The feeding tube tip is in the distal stomach or duodenal bulb. It has advanced since the previous examination of 02/26/2017. IMPRESSION: Feeding tube tip in distal stomach or duodenum Electronically signed by Parviz Shen 03/02/2017 1:55 PM
[2017-03-02] MEDS ORDERED: VITAMIN K 10 MG in NS 50 ML IV ONE (14:38)
[2017-03-02] MEDS: CLINIMIX E 4.25%-5% SOLUTION 1,000 ML IV SCH (15:05)
--- NOTE | 2017-03-02 15:16 | PROGRESS NOTE ---
DATE: 03/02/2017 SUBJECTIVE: Patient currently resting in bed. His family is present at bedside. No fever is reported. In fact, he has is mildly hypothermic. No nausea, vomiting noted and he is only eating very small amount of fluid. He has lack of appetite. He had 1 brown stool today. The patient is progressively getting worse and was transferred to the ICU for worsening urine output and hypotension. OBJECTIVE: Vital signs: Temperature 96.5, pulse of 101, respiratory rate 6- 12 per minute, blood pressure 103/75, saturating 100% room air. General Appearance: He is moderately built , lying in bed, was sleeping but was able to wake upon command, answers simple questions. HEENT: Icteric sclera, skin and Mild Pallor. CHEST: Decreased breath sounds at the bases; CVS: Mild tachycardia noted; ABDOMEN: Mild distension noted, anasarca noted; BS present; No guarding. EXT: Bruising over the Upper extremities, edema B/L LE; NEURO: Drowsy, able to answer some simple questions. Family at bedside. LABORATORY: Hemoglobin and hematocrit is 14.9, 40.6, white count 44.08, platelet count of 89,000. INR 1.69, PT of 18.4, PTT of 42.2, sodium 133, potassium 4.4, chloride 96, bicarb 14, anion gap of 23, BUN of 97, creatinine 3.7, glucose of 102, calcium is 8.7, phosphorus 6.5, total bilirubin is 41.08. AST 167, ALT 160. Alkaline phosphatase 6.5, total protein 3.4, albumin of 2.8. ASSESSMENT: 1. Chronic liver failure likely secondary to history of alcoholism, liver disease and cirrhosis. Patient has shown minimal improvement with supportive treatment including pentoxifylline, prednisone and ursodiol. The only option left is to obtain a liver biopsy to exclude any kind of infiltrative disorders or malignancy. The scans, including MRI and CT scans have been negative for any kind of malignancy. 2. Ascites. We will continue to keep a watch on that. 3. 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 It is being followed by the Nephrology Team. He is getting albumin. 4. Anion gap metabolic acidosis. I think this is most likely secondary to liver failure and kidney injury. 5. Malnutrition. We will try to dual Dobbhoff in and try to give him nutrition. 6. Hypertension being monitored by the primary care team. 7. Coagulopathy. INR is 1.69. I will give another dose of vitamin K today. 8. Altered mental status. He will continue on Xifaxan 550 mg p.o. b.i.d., and lactulose 15 mL 3 times daily. 9. Gastrointestinal prophylaxis with PPIs twice daily. 10. The patient's condition is getting worse. He is in liver failure complicated by multiorgan dysfunction. I discussed the above with the patient's family at bedside and all questions were answered. Will continue to keep close watch. cc: MD Ryan Mcgregor MD Allen J. Schmidt, MD David Francis, MD MTDD
--- NOTE | 2017-03-02 15:17 | PROGRESS NOTE ---
DATE: 03/01/2017 SUBJECTIVE: The patient is resting in bed. He recognized me and said "Hello." He did not have any fever or chills, but feeling weak. His appetite may be improving. No nausea or vomiting. He is having 1 bowel movement per day. OBJECTIVE: Vitals: Temp 98 degrees, pulse 100, respiratory rate 14, blood pressure is 90/52, satting 100%. HEENT: Marked scleral icterus. No conjunctival pallor. Neck: Supple. Trachea midline. Heart: Normal first and second heart sounds. Lungs: Few rales at the bases. Abdomen: Hepatomegaly. Distention. Some tenderness in the right upper quadrant. Extremities: Mild pedal edema. Neurologic: No signs of asterixis neurologically. LABS: Hemoglobin and hematocrit 12.7 and 40. White count is 27.36, PT is high at 18. LFTs with bilirubin 41, AST 167, alkaline phosphatase 615. IMPRESSION AND PLAN: 1. Chronic liver failure. 2. Alcoholic liver disease. 3. Rule out infiltrative liver disorder. 4. Poor nutrition. 5. On prophylactic antibiotics. 6. Coagulopathy. 7. Altered mental status on Xifaxan. 8. Alcoholism. 9. Gastrointestinal prophylaxis. Further evaluation will be dependent. I am concerned about the increasing alkaline phosphatase and bilirubin not changing at all. There should be another reason for infiltrative liver disorder. I talked to Dr. Weston Wright and I also talked to Dr. Michael Forbes about getting a consult with Hepatology Unit at [facility]. His PT is off. We may need to consider doing a liver biopsy as well. We will decide after discussing with GI Division and Hepatology Division at [facility]. Dr. oFrbes will be seeing him tomorrow. cc: Fernie Mcghee MD
--- NOTE | 2017-03-02 15:35 | PROGRESS NOTE ---
DATE: 03/02/2017 SUBJECTIVE: Patient resting in bed. He is awake. Eyes are open, but does not interact. OBJECTIVE: Vital signs: Temperature 95.9 degrees, pulse 77, respiratory rate 13, blood pressure 95/53. Intake 394 mL; output 92 mL. General: Elderly gentleman resting in bed. He is awake, does not interact. HEENT: Normocephalic, atraumatic. Conjunctivae are pale. Icteric sclerae. Neck: Supple. No JVD. Cardiovascular: Irregular rate and rhythm. No murmur or gallop. Pulmonary: Equal excursion. He has some scattered rhonchi bilaterally. Decreased breath sounds to the bases. Abdomen: Distended, soft, positive bowel sounds, hypoactive. : Not inspected. He has catheter with dark urine noted. Extremities: 3+ edema. No clubbing, cyanosis. Integumentary: Severe jaundice. Warm and dry. LAB DATA: WBC of 44.0, hemoglobin 14.9, platelet count of 89. Sodium 133, potassium 4.4, CO2 14, BUN 97, creatinine 3.7, albumin 2.8, phosphorus 6.5, calcium 8.7. ASSESSMENT AND PLAN: 1. Acute kidney injury. He has a continued rise in his creatinine. His urine output has dropped significantly. He has had albumin added back. This appears prerenal though total body volume overload. We will continue with current therapy. Now on levophed. Continue albumin. rg 2. Liver disease followed by primary. 3. Electrolytes, acid-base balance. These are acceptable. He is rather acidotic. He has been in this range now for 2 or 3 days. 4. Hypotension. He is on pressor support. Dictated by LETICIA Delgado for Ryan Ureña MD Patient seen, data reviewed, discussed with Polo Hernandez on 03/02/17. I agree with the above assessment and plan of care. rg cc: Ryan Ureña MD [facility]
[2017-03-02] MEDS: PHENERGAN IV PRN ×2 (15:43→21:53)
[2017-03-02] MEDS: SODIUM CHLORIDE 0.9% INJ PRN (21:53)
[2017-03-02] MEDS: SODIUM CHLORIDE 0.9% INJ SCH (21:54)
[2017-03-02] MEDS: DILAUDID IV PRN (22:14)
[2017-03-02] MEDS: MELATONIN PO SCH (22:25)
[2017-03-03] MEDS: LEVOPHED 8 MG in D5 1/2 NS 250 ML IV SCH ×3 (00:49→22:47)
[2017-03-03] MEDS: CLINIMIX E 4.25%-5% SOLUTION 1,000 ML IV SCH ×2 (02:21→14:31)
[2017-03-03 04:06] LABS: INR 2.01
[2017-03-03 04:09] LABS: HEMATOCRIT 34.5 % (42.0-52.0); HEMOGLOBIN 12.1 g/dL (14.0-18.0); MCH 35.5 PG (27-31); MCHC 35.1 g/dL (33-37); MCV 101.2 FL (81-99); MPV 13.1 FL (7.4-10.4); PLT 67 X1000 (130-400); PROTIME 22.1 Seconds (9.2-11.7); RBC 3.41 XMIL (4.7-6.1)
[2017-03-03 04:21] LABS: BANDS 3 % (0-1); LYMPHS 3 % (21-51); MONO 2 % (1-9); NRBC 1 % (0-0)
[2017-03-03 04:43] LABS: CALCIUM 8.3 mg/dL (8.8-10.2); POTASSIUM 4.7 mmol/L (3.5-5.1)
[2017-03-03 08:10] LABS: URINE MICRO REVIEW NEEDED? NO; URINE SOURCE CATH
[2017-03-03 08:19] LABS: UR EPITHELIAL CELLS <10 /HPF (<10); URINE BACTERIA NEGATIVE /HPF; URINE RBC TNTC /HPF (<10)
[2017-03-03 08:25] LABS: BLOOD URINE MODERATE (NEGATIVE); COLOR YELLOW; GLUCOSE URINE NEGATIVE (NEGATIVE); LEUKOCYTES URINE NEGATIVE (NEGATIVE); NITRITE URINE NEGATIVE (NEGATIVE); PH URINE 5.5; PROTEIN URINE 100 mg/dL (NEGATIVE); SP GRAVITY URINE 1.017; TURBIDITY URINE HAZY (CLEAR); UROBILINOGEN URINE NORMAL (NORMAL)
[2017-03-03 08:31] LABS: BILIRUBIN URINE LARGE (NEGATIVE)
[2017-03-03] MEDS: ALBUMIN 25% IV SCH (09:17)
[2017-03-03] MEDS: ROCEPHIN 1 GM/NS 1 GM/50 ML IVPB IV SCH ×2 (09:18→20:10)
[2017-03-03] MEDS: LACTULOSE PO SCH ×3 (09:19→16:54)
[2017-03-03] MEDS: PREDNISONE PO SCH (09:19)
[2017-03-03] MEDS: FOLIC ACID PO SCH (09:19)
[2017-03-03] MEDS: XIFAXAN PO SCH ×2 (09:19→20:09)
[2017-03-03] MEDS: CENTRUM SILVER PO SCH ×2 (09:20→20:09)
[2017-03-03] MEDS: PROTONIX IV SCH ×2 (09:20→20:09)
[2017-03-03] MEDS: VITAMIN B-1 PO SCH (09:20)
[2017-03-03] MEDS: CALTRATE 600 PO SCH ×2 (09:21→20:09)
[2017-03-03] MEDS: TRENTAL PO SCH ×3 (09:21→20:09)
[2017-03-03] MEDS: ACTIGALL PO SCH ×2 (09:21→20:09)
[2017-03-03] MEDS: PHENERGAN IV PRN (09:30)
[2017-03-03] MEDS: SODIUM CHLORIDE 0.9% INJ SCH ×2 (09:30→20:09)
--- NOTE | 2017-03-03 09:37 | PROGRESS NOTE ---
DATE: 03/03/2017 SUBJECTIVE: We are going to try and attempt a liver biopsy on him today. It is about the same. Blood pressure marginal. He is on norepinephrine. OBJECTIVE/EXAMINATION: Temp 97.1 degrees, pulse 89, respirations 14, blood pressure 104/48. Lungs are clear in all lung walker. Cardiovascular exam: Regular rhythm and rate without murmur or S3. Abdomen is soft. Skin is warm and dry. Urine output almost 6 L. LABORATORY DATA: Reviewed. White count 35,020. Hematocrit 34, platelet count 67,000. Sodium 132, potassium 4.7, chloride 96. BUN 117, creatinine 4.8, blood sugars 126, 137, 117. ProTime was 22. I reviewed his orders. ASSESSMENT AND PLAN: 1. Alcoholic hepatitis, prolonged. 2. Hyperbilirubinemia. 3. I am concerned that he may be approaching hepatorenal syndrome. He is on norepinephrine. He is also getting Trental 400 mg 3 times a day which is pentoxifylline. He is getting prednisone. He is on Protonix 40 mg q.12. We put him on Norepinephrine. Attempted liver biopsy today to see if that would help. We also need to put in an NG tube and begin feeding. cc: Weston Wright MD
--- NOTE | 2017-03-03 09:50 | Diag Imaging Result Doc PS360 ---
EXAM: US LIVER BIOPSY W S/I HISTORY: liver biopsy TECHNIQUE: Ultrasound-guided biopsy of the left hepatic lobe COMMENT: The risks and benefits of the procedure were discussed with the patient including the possibility of bleeding, infection, or reaction to lidocaine. He agreed to the procedure. Following sterile preparation the skin and administration 1% lidocaine to the skin and deeper soft tissues the left hepatic lobe was biopsied with a coaxial 18-gauge Temno core biopsy needle and three core specimens were obtained. There was no immediate complication. IMPRESSION: Successful ultrasound-guided hepatic biopsy. Electronically signed by Parviz Shen 03/03/2017 9:47 AM
[2017-03-03 10:08] LABS: UR CREAT RANDOM 77.7 mg/dL (14-26)
[2017-03-03] MEDS ORDERED: VITAMIN K 10 MG in NS 50 ML IV ONE (10:17)
[2017-03-03] MEDS: DILAUDID IV PRN ×2 (11:17→22:43)
--- NOTE | 2017-03-03 12:07 | PROGRESS NOTE ---
DATE: 03/03/2017 SUBJECTIVE: The patient is currently resting in bed. His family is at bedside. He had a liver biopsy done by Dr. Shen this morning. We will follow the results. Patient received 1 unit FFP this morning. His INR was 2. Gave him a dose of vitamin K today to prevent any post liver biopsy complications like bleeding and hemorrhage. No fever reported. No nausea or vomiting reported. We were able to insert an NG tube yesterday, and he has been started on NG tube feeds. He is moving his bowels, had 2 soft brown stools today. No blood in the stools. OBJECTIVE: Vital Signs: Temperature 97.1 degrees, pulse of 89, respiratory rate 14, blood pressure 104/48, saturating 99% on room air. General Appearance: Moderately nourished, lying in bed, in no acute distress. HEENT: Anicteric sclerae. NG tube in place. Neck : Supple. Abdomen: Distended. Positive ascites. No guarding, no rebound. Bowel sounds present. Extremities: No cyanosis or clubbing. Bilateral lower extremity anasarca noted , and bruises in the upper extremities. Neurologic: He was awake and alert, and was able to answer some questions. LABORATORY STUDIES: Hemoglobin and hematocrit is 12.1 and 34.5, white count 35.02, platelet count of 67. Neutrophils 92%. INR of 2, PT of 22.1. Sodium 132, potassium 4.7, chloride 96, bicarb of 12. Anion gap of 24. BUN of 117, creatinine 4.8, glucose of 117. Calcium is 8.3, phosphorus 7.4, albumin of 3. Urinalysis showing positive white cells, positive red cells , moderate blood, positive protein. Urine creatinine was 77, high. Urine sodium was 21. IMPRESSION AND PLAN: 1. Chronic liver failure, with gradual worsening. We will continue with supportive care. Continuing with pentoxifylline, prednisone, ursodiol. He status post liver biopsy. We will give him a dose of vitamin K to avoid any risk of bleeding. Will follow the liver biopsy results. 2. Ascites. Continue to keep a watch on that. Low sodium diet. 3. Malnutrition. He will continue NG tube feeds for nutrition. 4. 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 He is on albumin and they are starting him on low-dose pressor support. 5. Anion gap metabolic acidosis, getting worse, likely secondary to liver failure and kidney injury. 6. Coagulopathy. INR is 2. He has already received 1 unit of FFP. We will give him a dose of vitamin K 10 mg IV once. 7. Altered mental status. He will continue on Xifaxan 550 mg p.o. b.i.d. and lactulose 15 mL 3 times daily. 8. GI prophylaxis. PPIs twice daily. 9. Leukocytosis, neutrophilia. We will obtain blood cultures x2. He continues on antibiotics with ceftriaxone. We will call an Infectious Disease consult for worsening leukocytosis and neutrophilia. 10. The patient is critical at this time. His liver failure is getting worse, with multiple organ involvement. I discussed the findings with the patient's family, and also with Dr. Perez, Dr. Wright, Dr. Guzman, Dr. Ureña, and Dr. Muhammad. cc: Michael Forbes MD MTD
--- NOTE | 2017-03-03 14:16 | PROGRESS NOTE ---
DATE: 03/03/2017 SUBJECTIVE: He is more encephalopathic today. He is somnolent and groans but does not verbalize. OBJECTIVE: Vital Signs: Blood pressure 94/56, heart rate 90, respirations 16, afebrile. Intake 3 L, output 120 mL. PHYSICAL EXAM: Markedly jaundiced with multiple ecchymoses. No acute distress.Skin: Warm and dry. HEENT: Conjunctivae are icteric. Pupils are equal. Oropharynx is dry. Neck: Neck veins are distended. Heart: Regular without gallops or murmurs. Lungs: Have equal breath sounds. No crackles. Shallow. Abdomen: Soft, nontender. Bowel sounds are present but diminished. Extremities: Have 2+ edema. No clubbing or cyanosis. LABORATORY DATA: Sodium 132, potassium 4.7, chloride 96, bicarbonate 12, BUN 117, creatinine 4.8. Hemoglobin 12.1. Urine sodium 21. IMPRESSION: Acute kidney injury. Now oliguric. 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 He is receiving appropriate care with albumin and norepinephrine. He does not have any absolute indications for dialysis at this time but certainly is concerning that he may develop them in the near future. We will discuss with family when opportunity is available. cc: Ryan Ureña MD
[2017-03-03 15:17] LABS: ALLEN TEST YES; BLOOD TYPE ARTERIAL; DRAW SITE R RADIAL; METHB 0.9 % (0.0-1.5); PCO2(98.6) 31 mmHg (35-45); PO2(98.6) 81 mmHg (60-100); SAMPLE BLOOD; THB 10.4 g/dL (11.5-17.4)
[2017-03-03 15:19] LABS: MODALITY ROOM AIR; pH(98.6) 7.17 (7.35-7.45)
[2017-03-03] MEDS: MELATONIN PO SCH (20:09)
[2017-03-04] MEDS: CLINIMIX E 4.25%-5% SOLUTION 1,000 ML IV SCH ×3 (01:16→08:34)
--- NOTE | 2017-03-04 07:25 | Diag Imaging Result Doc PS360 ---
EXAM: CHEST-PORTABLE HISTORY: NG tube placement confirmation TECHNIQUE: Portable upright AP COMPARISON: 03/02/2017 FINDINGS: A nasogastric tube overlies the esophagus and stomach. No free air beneath the diaphragm. The lower lungs are clear. No pleural effusions identified. IMPRESSION: Nasogastric tube overlies the esophagus and stomach. Electronically signed by Mau Pitts 03/04/2017 7:23 AM
[2017-03-04 07:57] LABS: HEMATOCRIT 29.8 % (42.0-52.0); HEMOGLOBIN 10.2 g/dL (14.0-18.0); MCH 35.9 PG (27-31); MCHC 34.2 g/dL (33-37); MCV 104.9 FL (81-99); MPV 13.2 FL (7.4-10.4); RBC 2.84 XMIL (4.7-6.1)
[2017-03-04 08:28] LABS: ALBUMIN 2.7 g/dL (3.5-5.0); ALKALINE PHOSPHATASE 580 U/L (32-122); GOT 245 U/L (10-34); GPT 145 U/L (10-44); TOTAL PROTEIN 3.1 g/dL (6.3-8.3)
[2017-03-04 08:30] LABS: ALBUMIN 2.6 g/dL (3.5-5.0); CALCIUM 7.7 mg/dL (8.8-10.2)
[2017-03-04] MEDS: ALBUMIN 25% IV SCH (08:35)
[2017-03-04] MEDS: LACTULOSE PO SCH (08:35)
[2017-03-04] MEDS: CENTRUM SILVER PO SCH (08:36)
[2017-03-04] MEDS: PREDNISONE PO SCH (08:36)
[2017-03-04] MEDS: PROTONIX IV SCH (08:36)
[2017-03-04] MEDS: SODIUM CHLORIDE 0.9% INJ SCH (08:36)
[2017-03-04] MEDS: TRENTAL PO SCH (08:36)
[2017-03-04] MEDS: FOLIC ACID PO SCH (08:36)
[2017-03-04] MEDS: DILAUDID IV PRN (08:36)
[2017-03-04] MEDS: XIFAXAN PO SCH (08:37)
[2017-03-04] MEDS: CALTRATE 600 PO SCH (08:37)
[2017-03-04] MEDS: ACTIGALL PO SCH (08:37)
[2017-03-04] MEDS: ROCEPHIN 1 GM/NS 1 GM/50 ML IVPB IV SCH (08:38)
[2017-03-04] MEDS: VITAMIN B-1 PO SCH (08:38)
--- NOTE | 2017-03-04 08:39 | PROGRESS NOTE ---
DATE: 03/04/2017 SUBJECTIVE: He is about the same today. Specifically, he is hypersomnolent, but he will respond with single syllables. Eyes are open. OBJECTIVE: Vital Signs: Blood pressure 81/46, heart rate 93, respirations 21, afebrile. Intake 3.6 liters and output 100 mL. General: On physical exam, an elderly man, Kussmaul breathing. Skin: Jaundiced and dry with multiple ecchymoses and telangiectasias. HEENT: Pupils are equal. Conjunctivae are pink. Oropharynx is dry. Neck: The neck veins are not appreciated. Heart: Regular with no gallops or murmurs or rubs. Lungs: Have equal breath sounds. Hyperpneic with no crackles. Abdomen: Soft, nontender. Bowel sounds present. Extremities: Have 3+ edema. No clubbing or cyanosis. LABORATORY DATA: Pending for today. IMPRESSION AND PLAN: Hepatorenal syndrome. See my note from yesterday. My opinion today remains the same. I do not think he is an acceptable candidate for dialysis given his overall mortality. I would recommend comfort care and withdrawal of his intravenous fluids in order to avoid developing pulmonary edema. He is Kussmaul breathing, and this is because he is significantly acidotic. I discussed this directly with Dr. Wright today, and we are in agreement. cc: Ryan Ureña MD
[2017-03-04 08:40] LABS: MAGNESIUM 3.4 mg/dL (1.5-2.7)
[2017-03-04 08:41] LABS: DIRECT BILIRUBIN > 10.00 mg/dL (0.00-0.20); POTASSIUM 6.2 mmol/L (3.5-5.1); TOTAL BILIRUBIN 39.93 mg/dL (0.20-1.00)
[2017-03-04 10:31] VITALS: BP 83/42
--- NOTE | 2017-03-04 22:31 | DISCHARGE SUMMARY ---
ADMISSION DATE: 02/15/2017 DISCHARGE DATE: 03/04/2017 DISCHARGE SUMMARY/ SUMMARY Patient was admitted on 02/15/2017 again for hepatic dysfunction. He continued to decline with drop in blood pressure. He developed hepatorenal syndrome and continued decline in renal function, and on the morning of 03/04/2017. The family had made him a no code and were aware. cc: Weston Wright MD
== END 2017-03-04 10:37 | disposition expired ==
LOC: ED 16:33 → 4N 19:01 → SUATTDRO 19:01 → 3N 02-21 14:38 → 3S 02-27 12:47 → ICU 03-01 20:43
PROVIDERS: ATTEND Emergency Medicine